=== PATIENT | female | born 1945 | race Caucasian/White ===

== ENCOUNTER 2016-10-10 15:16 | Inpatient (IN) | payer MEDICARE, OTHER ==
[2016-10-10] MEDS ORDERED: Aspirin Low Dose CHEW TAB* 81 MG PO ONE (15:38)
[2016-10-10] MEDS ORDERED: NS 0.9% 1000 ML* 1,000 ML IV SCH (15:45)
[2016-10-10 15:55] LABS: Hematocrit 40 % (35-47); Hemoglobin 13.4 g/dl (12.0-16.0); Mean Corpuscular HGB Conc 33 g/dl (31-36); Mean Corpuscular Hemoglobin 31 pg (27-31); Mean Corpuscular Volume 93 fL (80-97); Mean Platelet Volume 8 um3 (7.4-10.4); Red Blood Count 4.33 10^6/ul (4.0-5.4); Red Cell Distribution Width 15 % (10.5-15); White Blood Count 9.2 10^3/ul (3.5-10.8)
[2016-10-10 16:08] LABS: Urine Bacteria Absent (Absent); Urine Bilirubin Negative (Negative); Urine Glucose Negative (Negative); Urine Nitrite Negative (Negative)
[2016-10-10 16:11] LABS: ALT 13 U/L (7-52); AST 12 U/L (13-39); Albumin 3.6 g/dL (3.2-5.2); Alkaline Phosphatase 57 U/L (34-104); Anion Gap 5 mmol/L (2-11); BUN/Creatinine Ratio 17.4 (8-20); Blood Urea Nitrogen 28 mg/dL (6-24); C Reactive Protein < 1.00 mg/L (< 5.00); CO2 Carbon Dioxide 25 mmol/L (22-32); Calcium 9.8 mg/dL (8.6-10.3); Chloride 105 mmol/L (101-111); Creatine Kinase 50 U/L (10-223); EGFR African American 40.6 (>60); EGFR Non-African American 31.5 (>60); Globulin 2.7 g/dL (2-4); Glucose 108 mg/dL (70-100); Lipase 17 U/L (11.0-82.0); Potassium 4.6 mmol/L (3.5-5.0); Sodium 135 mmol/L (133-145); Total Protein 6.3 g/dL (6.4-8.9)
--- NOTE | 2016-10-10 16:15 | RAD ---
HISTORY: Shortness of breath, chest pain COMPARISONS: September 18, 2016 VIEWS:1: Single frontal portable view of the chest at 3:40 PM FINDINGS: LINES AND TUBES: None. CARDIOMEDIASTINAL SILHOUETTE: The cardiomediastinal silhouette is normal for portable technique. PLEURA: The costophrenic angles are sharp. No pleural abnormalities are noted. LUNG PARENCHYMA: There is hyperinflation. ABDOMEN: The upper abdomen is clear. There is no subphrenic gas. BONES AND SOFT TISSUES: No bone or soft tissue abnormalities are noted. IMPRESSION: NO ACTIVE CARDIOPULMONARY DISEASE.
[2016-10-10 16:43] LABS: TSH (Thyroid Stimulating Horm) 0.46 mcIU/mL (0.34-5.60)
[2016-10-10] MEDS ORDERED: Acetaminophen TAB* 325 MG PO PRN (17:24)
[2016-10-10] MEDS ORDERED: Albuterol/Ipratropium NEB.SOL* Albuterol 2.5 MG/Ipratropium 0.5 MG 3 ML INH PRN (17:24)
--- NOTE | 2016-10-10 18:39 | ED ---
Jose Maria Mckeon Rebecca, scribed for Omari Mcknight MD on 10/10/16 at 1536 . Shortness of Breath - HPI Summary HPI Summary: Pt is a 70 y/o F BIBA from [facility] who presents to ED c/o SOB. SOB is characterized as dyspnea at rest and has been intermittent since onset 3-4 days ago, worsening at 1300. Additionally c/o dizziness and mild, midsternal CP without radiation. CP began at 1300, when SOB worsened, and it lasted a few hours, currently resolved. Additionally notes worsening insomnia, reporting difficulties sleeping for multiple months and that she has not slept for the last 5 days. Denies fever, chills, nausea, diaphoresis and edema. PMHx COPD. - History of Current Complaint Chief Complaint: EDShortnessOfBreath Time Seen by Provider: 10/10/16 15:26 Hx Obtained From: Patient Onset/Duration: Lasting Days - 3-4 days, Still Present, Worse Since - 1300 Timing: Intermittent Episodes Lasting: Dyspnea At: Rest Aggrevating Factors: Nothing Alleviating Factors: Nothing Associated Signs & Symptoms: Chest Pain Unrelated to Cough - resolved - Allergy/Home Medications Allergies/Adverse Reactions: Allergies Allergy/AdvReac Type Severity Reaction Status Date / Time Amoxicillin [From Augmentin] Allergy GI Upset Verified 09/29/16 15:11 Clavulanic Acid Allergy GI Upset Verified 09/29/16 15:11 [From Augmentin] Niacin Allergy Unknown Verified 09/29/16 15:11 Reaction Details Sulfa Antibiotics Allergy GI Upset Verified 09/29/16 15:11 PMH/Surg Hx/FS Hx/Imm Hx Cardiovascular History: Reports: Other Cardiovascular Problems/Disorders - Mitral valve prolapse Denies: Hx Congestive Heart Failure Respiratory History: Reports: Hx Chronic Obstructive Pulmonary Disease (COPD) Musculoskeletal History: Reports: Hx Rheumatoid Arthritis Denies: Hx Osteoporosis Infectious Disease History: Denies: Traveled Outside the [place] in Last 30 Days - Family History Known Family History: Positive: Cardiac Disease, Other - CA Negative: Diabetes - Social History [facility]: [facility] Alcohol Use: None Substance Use Type: Reports: None Smoking Status (MU): Former Smoker Review of Systems Negative: Fever, Chills, Skin Diaphoresis Positive: Chest Pain - mild, midsternal CP - resolved Positive: Shortness Of Breath - dyspnea at rest Negative: Nausea Negative: Edema Neurological: Other - Dizziness All Other Systems Reviewed And Are Negative: Yes Physical Exam - Summary Physical Exam Summary: General: well-appearing, no pain distress Skin: warm, color reflects adequate perfusion, dry Head: normal Eyes: EOMI, KENNY ENT: constant movement of the tongue and mouth Neck: supple, nontender Respiratory: CTA, breath sounds present Cardiovascular: RRR Abdomen: soft, nontender Bowel: present Musculoskeletal: normal, strength/ROM intact, no pedal edema and calves are nontender Neurological: normal, sensory/motor intact, A&O x3 Psychological: affect/mood appropriate Triage Information Reviewed: Yes Vital Signs On Initial Exam: Initial Vitals Pulse Pulse Ox 79 99 10/10/16 15:26 10/10/16 15:26 Vital Signs Reviewed: Yes Diagnostics - Vital Signs Vital Signs Temp Pulse Resp BP Pulse Ox 10/10/16 15:30 79 22 137/68 97 10/10/16 15:28 97.8 F 80 16 95/76 97 10/10/16 15:27 79 95/76 99 10/10/16 15:26 79 99 - Laboratory Lab Results: Lab Results 10/10/16 10/10/16 10/10/16 Range/Units 15:48 15:48 15:48 WBC 9.2 (3.5-10.8) 10^3/ul RBC 4.33 (4.0-5.4) 10^6/ul Hgb 13.4 (12.0-16.0) g/dl Hct 40 (35-47) % MCV 93 (80-97) fL MCH 31 (27-31) pg MCHC 33 (31-36) g/dl RDW 15 (10.5-15) % Plt Count 296 (150-450) 10^3/ul MPV 8 (7.4-10.4) um3 Neut % (Auto) 74.8 (38-83) % Lymph % (Auto) 15.9 L (25-47) % [place] % (Auto) 7.5 (1-9) % Eos % (Auto) 0.5 (0-6) % Baso % (Auto) 1.3 (0-2) % Absolute Neuts (auto) 6.9 (1.5-7.7) 10^3/ul Absolute Lymphs (auto) 1.5 (1.0-4.8) 10^3/ul Absolute Monos (auto) 0.7 (0-0.8) 10^3/ul Absolute Eos (auto) 0 (0-0.6) 10^3/ul Absolute Basos (auto) 0.1 (0-0.2) 10^3/ul Absolute Nucleated RBC 0 10^3/ul Nucleated RBC % 0 INR (Anticoag Therapy) 0.92 (0.89-1.11) APTT 25.3 L (26.0-36.3) seconds D-Dimer, Quantitative < 200 (Less Than 230) ng/mL Sodium (133-145) mmol/L Potassium (3.5-5.0) mmol/L Chloride (101-111) mmol/L Carbon Dioxide (22-32) mmol/L Anion Gap (2-11) mmol/L BUN (6-24) mg/dL Creatinine (0.51-0.95) mg/dL Est GFR ( Amer) (>60) Est GFR (Non-Af Amer) (>60) BUN/Creatinine Ratio (8-20) Glucose (70-100) mg/dL Lactic Acid (0.5-2.0) mmol/L Calcium (8.6-10.3) mg/dL Magnesium (1.9-2.7) mg/dL Total Bilirubin (0.2-1.0) mg/dL AST (13-39) U/L ALT (7-52) U/L Alkaline Phosphatase (34-104) U/L Total Creatine Kinase (10-223) U/L CK-MB (CK-2) (0.6-6.3) ng/mL Troponin I (<0.04) ng/mL C-Reactive Protein (< 5.00) mg/L B-Natriuretic Peptide ( - 100) pg/mL Total Protein (6.4-8.9) g/dL Albumin (3.2-5.2) g/dL Globulin (2-4) g/dL Albumin/Globulin Ratio (1-3) Lipase (11.0-82.0) U/L TSH (0.34-5.60) mcIU/mL Urine Color Straw Urine Appearance Clear Urine pH 7.0 (5-9) Ur Specific [place] 1.008 L (1.010-1.030) Urine Protein Negative (Negative) Urine Ketones Negative (Negative) Urine Blood Negative (Negative) Urine Nitrate Negative (Negative) Urine Bilirubin Negative (Negative) Urine Urobilinogen Negative (Negative) Ur Leukocyte Esterase Trace H (Negative) Urine WBC (Auto) Absent (Absent) Urine RBC (Auto) Trace(0-2/hpf) (Absent) Ur Squamous Epith Cells Present H (Absent) Urine Bacteria Absent (Absent) Urine Glucose Negative (Negative) 10/10/16 10/10/16 10/10/16 Range/Units 15:48 15:48 15:48 WBC (3.5-10.8) 10^3/ul RBC (4.0-5.4) 10^6/ul Hgb (12.0-16.0) g/dl Hct (35-47) % MCV (80-97) fL MCH (27-31) pg MCHC (31-36) g/dl RDW (10.5-15) % Plt Count (150-450) 10^3/ul MPV (7.4-10.4) um3 Neut % (Auto) (38-83) % Lymph % (Auto) (25-47) % [place] % (Auto) (1-9) % Eos % (Auto) (0-6) % Baso % (Auto) (0-2) % Absolute Neuts (auto) (1.5-7.7) 10^3/ul Absolute Lymphs (auto) (1.0-4.8) 10^3/ul Absolute Monos (auto) (0-0.8) 10^3/ul Absolute Eos (auto) (0-0.6) 10^3/ul Absolute Basos (auto) (0-0.2) 10^3/ul Absolute Nucleated RBC 10^3/ul Nucleated RBC % INR (Anticoag Therapy) (0.89-1.11) APTT (26.0-36.3) seconds D-Dimer, Quantitative (Less Than 230) ng/mL Sodium 135 (133-145) mmol/L Potassium 4.6 (3.5-5.0) mmol/L Chloride 105 (101-111) mmol/L Carbon Dioxide 25 (22-32) mmol/L Anion Gap 5 (2-11) mmol/L BUN 28 H (6-24) mg/dL Creatinine 1.61 H (0.51-0.95) mg/dL Est GFR ( Amer) 40.6 (>60) Est GFR (Non-Af Amer) 31.5 (>60) BUN/Creatinine Ratio 17.4 (8-20) Glucose 108 H (70-100) mg/dL Lactic Acid 1.0 (0.5-2.0) mmol/L Calcium 9.8 (8.6-10.3) mg/dL Magnesium 2.0 (1.9-2.7) mg/dL Total Bilirubin 0.80 (0.2-1.0) mg/dL AST 12 L (13-39) U/L ALT 13 (7-52) U/L Alkaline Phosphatase 57 (34-104) U/L Total Creatine Kinase 50 (10-223) U/L CK-MB (CK-2) 3.0 (0.6-6.3) ng/mL Troponin I 0.00 (<0.04) ng/mL C-Reactive Protein < 1.00 (< 5.00) mg/L B-Natriuretic Peptide 28 ( - 100) pg/mL Total Protein 6.3 L (6.4-8.9) g/dL Albumin 3.6 (3.2-5.2) g/dL Globulin 2.7 (2-4) g/dL Albumin/Globulin Ratio 1.3 (1-3) Lipase 17 (11.0-82.0) U/L TSH 0.46 (0.34-5.60) mcIU/mL Urine Color Urine Appearance Urine pH (5-9) Ur Specific [place] (1.010-1.030) Urine Protein (Negative) Urine Ketones (Negative) Urine Blood (Negative) Urine Nitrate (Negative) Urine Bilirubin (Negative) Urine Urobilinogen (Negative) Ur Leukocyte Esterase (Negative) Urine WBC (Auto) (Absent) Urine RBC (Auto) (Absent) Ur Squamous Epith Cells (Absent) Urine Bacteria (Absent) Urine Glucose (Negative) Result Diagrams: 10/10/16 15:48 10/10/16 15:48 Lab Statement: Any lab studies that have been ordered have been reviewed, and results considered in the medical decision making process. - Radiology CXR Xray Interpretation: No Acute Changes - NO ACTIVE CARDIOPULMONARY DISEASE. Radiology Interpretation Completed By: Radiologist - EKG 1613 Cardiac Rate: NL - 74 bpm EKG Rhythm: Sinus Rhythm ST Segment: Normal Ectopy: None Course/Dx - Course Assessment/Plan: Pt is a 70 y/o F BIBA from [facility] who presents to ED c/o SOB. SOB is characterized as dyspnea at rest and has been intermittent since onset 3-4 days ago, worsening at 1300. Additionally c/o dizziness and mild, midsternal CP without radiation. CP began at 1300, when SOB worsened, and it lasted a few hours, currently resolved. Additionally notes worsening insomnia, reporting difficulties sleeping for multiple months and that she has not slept for the last 5 days. Denies fever, chills, nausea, diaphoresis and edema. PMHx COPD. CXR and EKG reveal no acute findings. Troponin of 0.00, D-Dimer < 200. Discussed care of pt with Dr. Beata Maldonado at 1637 who accepts pt for admission. ADMIT HOSPITALIST STABLE. - Diagnoses Provider Diagnoses: Chest pain, Dyspnea - Physician Notifications Discussed Care of Patient With: Beata Maldonado Time Discussed With Above Provider: 16:37 Instructed by Provider To: Other - Accepts pt for admission. Discharge - Discharge Plan Condition: Stable Disposition: ADMITTED TO [facility] The documentation as recorded by the Jose Maria newell Rebecca accurately reflects the service I personally performed and the decisions made by me, Omari Mcknight MD.
[2016-10-10] MEDS: NS 0.9% 1000 ML* 1,000 ML IV SCH (18:46)
[2016-10-10] MEDS ORDERED: Ipratropium 0.5MG/2.5ML NEB* 0.5 MG/2.5 ML NEB.SOLN INH PRN (21:28)
[2016-10-10] MEDS: Heparin VIAL(*) 5000 UNITS/ML VIAL (FIVE THOUSAND) SUBCUT SCH (21:57)
[2016-10-10] MEDS: oxyCODONE/Acetamin 5/325 MG* TAB PO SCH (21:57)
[2016-10-10] MEDS ORDERED: CMCS: Melatonin (NF) 3 MG TAB PO SCH ×2 (22:00)
[2016-10-10] MEDS: CMCS: Melatonin (NF) 3 MG TAB PO SCH (22:04)
[2016-10-10] MEDS ORDERED: busPIRone TAB* 10 MG PO SCH (23:45)
[2016-10-11] MEDS: Morphine INJ* 2 MG/ML 1 ML SYRINGE IV PRN (00:16)
[2016-10-11] MEDS: busPIRone TAB* 10 MG PO SCH ×3 (00:19→21:40)
[2016-10-11 05:06] LABS: BUN/Creatinine Ratio 21.3 (8-20); Calcium 8.8 mg/dL (8.6-10.3); EGFR African American 64.3 (>60); Potassium 3.9 mmol/L (3.5-5.0)
[2016-10-11] MEDS: Heparin VIAL(*) 5000 UNITS/ML VIAL (FIVE THOUSAND) SUBCUT SCH ×3 (05:57→21:42)
[2016-10-11] MEDS: NS 0.9% 1000 ML* 1,000 ML IV SCH (08:21)
[2016-10-11] MEDS: Dicyclomine CAP* 10 MG PO SCH ×2 (08:30→21:41)
[2016-10-11] MEDS: oxyCODONE/Acetamin 5/325 MG* TAB PO SCH ×3 (08:32→21:42)
[2016-10-11] MEDS: Famotidine TAB* 20 MG PO SCH (08:33)
[2016-10-11] MEDS: Donepezil TAB* 5 MG PO SCH (08:37)
[2016-10-11] MEDS: buPROPion SR TAB.SR* 200 MG PO SCH ×2 (08:38→13:50)
[2016-10-11] MEDS ORDERED: Ergocalciferol CAP* 50000 UNIT PO SCH (09:00)
[2016-10-11] MEDS ORDERED: predniSONE TAB* 5 MG PO SCH (09:00)
[2016-10-11] MEDS ORDERED: Salmeterol DISKUS (NF) INH SCH (09:00)
[2016-10-11] MEDS ORDERED: buPROPion SR TAB.SR* 200 MG PO SCH (09:00)
--- NOTE | 2016-10-11 11:30 | PN ---
Subjective Date of Service: 10/11/16 Interval History: Ms. Gold reports that her shortness of breath and midsternal chest heaviness with breathing returned overnight. She feels confident that this is similiar to past episodes of COPD exacerbation. She denies other complaint including nausea or abdominal pain. Objective Active Medications: Acetaminophen (Tylenol Tab*) 650 mg PO Q6H PRN Albuterol/Ipratropium (Duoneb (Albuterol 2.5 Mg/Ipratropium 0.5 Mg)) 1 neb INH Q4H PRN Bupropion HCl (Wellbutrin Sr Tab*) 200 mg PO 1400 [facility] Bupropion HCl (Wellbutrin Sr Tab*) 200 mg PO DAILY [facility] Buspirone HCl (Buspar Tab*) 5 mg PO BID [facility] Dicyclomine HCl (Bentyl Cap*) 10 mg PO BID [facility] Donepezil HCl (Aricept Tab*) 10 mg PO DAILY [facility] Doxycycline Hyclate (Vibramycin Cap(*)) 100 mg PO BID [facility] Duloxetine HCl (Cymbalta Cap*) 60 mg PO 2100 [facility] Ergocalciferol (Drisdol Cap*) 50,000 unit PO Mejia@0900 [facility] Famotidine (Pepcid Tab*) 10 mg PO DAILY [facility] Heparin Sodium (Porcine) (Heparin Vial(*)) 5,000 units SUBCUT Q8HR [facility] Ipratropium [place] (Atrovent 0.5 Mg Neb.Stephanie*) 0.5 mg INH BID PRN Melatonin (Melatonin (Nf)) 3 mg PO 2100 [facility] Morphine Sulfate (Morphine Inj (Syringe)*) 2 mg IV Q2H PRN Oxycodone/Acetaminophen (Percocet 5/325 Tab*) 1 tab PO TID [facility] Prednisone (Deltasone Tab*) 40 mg PO DAILY [facility] Risperidone (Risperdal) 0.25 mg PO BEDTIME [facility] Vital Signs 10/10/16 10/10/16 10/10/16 18:35 21:57 23:29 Temperature 98 F 98.5 F Pulse Rate 72 72 Respiratory 20 20 16 Rate Blood Pressure 161/64 130/50 (mmHg) O2 Sat by Pulse 100 98 Oximetry 10/10/16 10/11/16 10/11/16 23:57 00:16 01:16 Temperature Pulse Rate Respiratory 20 22 20 Rate Blood Pressure (mmHg) O2 Sat by Pulse Oximetry 10/11/16 10/11/16 10/11/16 03:08 08:30 08:32 Temperature 98.2 F 98.1 F Pulse Rate 70 75 Respiratory 16 18 18 Rate Blood Pressure 122/54 119/67 (mmHg) O2 Sat by Pulse 94 99 Oximetry 10/11/16 10/11/16 10/11/16 10:30 10:56 11:12 Temperature 98.3 F Pulse Rate 74 73 Respiratory 18 18 18 Rate Blood Pressure 128/58 (mmHg) O2 Sat by Pulse 98 99 Oximetry Oxygen Devices in Use Now: None Appearance: Female lying in bed in NAD Eyes: No Scleral Icterus Neck: Trachea Midline Respiratory: Symmetrical Chest Expansion and Respiratory Effort, - - Scant wheeze noted Cardiovascular: NL Sounds; No Murmurs; No JVD, No Edema Abdominal: NL Sounds; No Tenderness; No Distention Lymphatic: No Cervical Adenopathy Extremities: No Edema Skin: No Rash or Ulcers Neurological: Alert and Oriented x 3, NL Muscle Strength and Tone Nutrition: Taking PO's Result Diagrams: 10/10/16 15:48 10/11/16 04:24 Additional Lab and Data: Lab Results 10/10/16 10/10/16 10/10/16 Range/Units 15:48 15:48 15:48 WBC 9.2 (3.5-10.8) 10^3/ul RBC 4.33 (4.0-5.4) 10^6/ul Hgb 13.4 (12.0-16.0) g/dl Hct 40 (35-47) % MCV 93 (80-97) fL MCH 31 (27-31) pg MCHC 33 (31-36) g/dl RDW 15 (10.5-15) % Plt Count 296 (150-450) 10^3/ul MPV 8 (7.4-10.4) um3 Neut % (Auto) 74.8 (38-83) % Lymph % (Auto) 15.9 L (25-47) % [place] % (Auto) 7.5 (1-9) % Eos % (Auto) 0.5 (0-6) % Baso % (Auto) 1.3 (0-2) % Absolute Neuts (auto) 6.9 (1.5-7.7) 10^3/ul Absolute Lymphs (auto) 1.5 (1.0-4.8) 10^3/ul Absolute Monos (auto) 0.7 (0-0.8) 10^3/ul Absolute Eos (auto) 0 (0-0.6) 10^3/ul Absolute Basos (auto) 0.1 (0-0.2) 10^3/ul Absolute Nucleated RBC 0 10^3/ul Nucleated RBC % 0 INR (Anticoag Therapy) 0.92 (0.89-1.11) APTT 25.3 L (26.0-36.3) seconds D-Dimer, Quantitative < 200 (Less Than 230) ng/mL Sodium (133-145) mmol/L Potassium (3.5-5.0) mmol/L Chloride (101-111) mmol/L Carbon Dioxide (22-32) mmol/L Anion Gap (2-11) mmol/L BUN (6-24) mg/dL Creatinine (0.51-0.95) mg/dL Est GFR ( Amer) (>60) Est GFR (Non-Af Amer) (>60) BUN/Creatinine Ratio (8-20) Glucose (70-100) mg/dL Lactic Acid (0.5-2.0) mmol/L Calcium (8.6-10.3) mg/dL Magnesium (1.9-2.7) mg/dL Total Bilirubin (0.2-1.0) mg/dL AST (13-39) U/L ALT (7-52) U/L Alkaline Phosphatase (34-104) U/L Total Creatine Kinase (10-223) U/L CK-MB (CK-2) (0.6-6.3) ng/mL Troponin I (<0.04) ng/mL C-Reactive Protein (< 5.00) mg/L B-Natriuretic Peptide ( - 100) pg/mL Total Protein (6.4-8.9) g/dL Albumin (3.2-5.2) g/dL Globulin (2-4) g/dL Albumin/Globulin Ratio (1-3) Lipase (11.0-82.0) U/L TSH (0.34-5.60) mcIU/mL Urine Color Straw Urine Appearance Clear Urine pH 7.0 (5-9) Ur Specific [place] 1.008 L (1.010-1.030) Urine Protein Negative (Negative) Urine Ketones Negative (Negative) Urine Blood Negative (Negative) Urine Nitrate Negative (Negative) Urine Bilirubin Negative (Negative) Urine Urobilinogen Negative (Negative) Ur Leukocyte Esterase Trace H (Negative) Urine WBC (Auto) Absent (Absent) Urine RBC (Auto) Trace(0-2/hpf) (Absent) Ur Squamous Epith Cells Present H (Absent) Urine Bacteria Absent (Absent) Urine Glucose Negative (Negative) 10/10/16 10/10/16 10/10/16 Range/Units 15:48 15:48 15:48 WBC (3.5-10.8) 10^3/ul RBC (4.0-5.4) 10^6/ul Hgb (12.0-16.0) g/dl Hct (35-47) % MCV (80-97) fL MCH (27-31) pg MCHC (31-36) g/dl RDW (10.5-15) % Plt Count (150-450) 10^3/ul MPV (7.4-10.4) um3 Neut % (Auto) (38-83) % Lymph % (Auto) (25-47) % [place] % (Auto) (1-9) % Eos % (Auto) (0-6) % Baso % (Auto) (0-2) % Absolute Neuts (auto) (1.5-7.7) 10^3/ul Absolute Lymphs (auto) (1.0-4.8) 10^3/ul Absolute Monos (auto) (0-0.8) 10^3/ul Absolute Eos (auto) (0-0.6) 10^3/ul Absolute Basos (auto) (0-0.2) 10^3/ul Absolute Nucleated RBC 10^3/ul Nucleated RBC % INR (Anticoag Therapy) (0.89-1.11) APTT (26.0-36.3) seconds D-Dimer, Quantitative (Less Than 230) ng/mL Sodium 135 (133-145) mmol/L Potassium 4.6 (3.5-5.0) mmol/L Chloride 105 (101-111) mmol/L Carbon Dioxide 25 (22-32) mmol/L Anion Gap 5 (2-11) mmol/L BUN 28 H (6-24) mg/dL Creatinine 1.61 H (0.51-0.95) mg/dL Est GFR ( Amer) 40.6 (>60) Est GFR (Non-Af Amer) 31.5 (>60) BUN/Creatinine Ratio 17.4 (8-20) Glucose 108 H (70-100) mg/dL Lactic Acid 1.0 (0.5-2.0) mmol/L Calcium 9.8 (8.6-10.3) mg/dL Magnesium 2.0 (1.9-2.7) mg/dL Total Bilirubin 0.80 (0.2-1.0) mg/dL AST 12 L (13-39) U/L ALT 13 (7-52) U/L Alkaline Phosphatase 57 (34-104) U/L Total Creatine Kinase 50 (10-223) U/L CK-MB (CK-2) 3.0 (0.6-6.3) ng/mL Troponin I 0.00 (<0.04) ng/mL C-Reactive Protein < 1.00 (< 5.00) mg/L B-Natriuretic Peptide 28 ( - 100) pg/mL Total Protein 6.3 L (6.4-8.9) g/dL Albumin 3.6 (3.2-5.2) g/dL Globulin 2.7 (2-4) g/dL Albumin/Globulin Ratio 1.3 (1-3) Lipase 17 (11.0-82.0) U/L TSH 0.46 (0.34-5.60) mcIU/mL Urine Color Urine Appearance Urine pH (5-9) Ur Specific [place] (1.010-1.030) Urine Protein (Negative) Urine Ketones (Negative) Urine Blood (Negative) Urine Nitrate (Negative) Urine Bilirubin (Negative) Urine Urobilinogen (Negative) Ur Leukocyte Esterase (Negative) Urine WBC (Auto) (Absent) Urine RBC (Auto) (Absent) Ur Squamous Epith Cells (Absent) Urine Bacteria (Absent) Urine Glucose (Negative) Microbiology and Other Data: Microbiology 10/10/16 22:50 Nasal Screen MRSA (PCR)(ANGELIKA) - Final Nasal Mrsa Negative Assess/Plan/Problems-Billing Assessment: Ms. Gold is a 70 yo female with a PMH of rheumatoid arthritis and COPD who was admitted on 10/10/16 with SOB and chest pain now with suspected COPD exacerbation. - Patient Problems (1) COPD exacerbation Comment: - SOB returned today, now am more suspicious for mild COPD exacerbation. - Start increased prednisone and doxycycline with duonebs prn. (2) Rheumatoid arthritis Comment: - On prednisone 15mg at home daily, increased now for COPD exacerbation. (3) Dementia Comment: - Continue aricept. (4) Depression Comment: - Continue welbutrin, buspar, risperadone. - Patient had recently had cymbalta removed from her medication list at [facility], patient and family requesting that it be resumed as patient has insomnia and they feel this medication is very beneficial in this regard. - Reviewed med list with pharmacy, will resume cymbalta. (5) DVT prophylaxis (6) Full code status Status and Disposition: Switch from OBV to inpatient with need for additional night in the hospital for COPD exacerbation. Anticipate discharge to [facility] when medically stable.
[2016-10-11] MEDS: DOXYcycline CAP(*) 100 MG PO SCH ×2 (11:51→21:42)
[2016-10-11] MEDS: predniSONE TAB* 20 MG PO SCH (11:52)
[2016-10-11 13:59] LABS: Urine Bilirubin Negative (Negative); Urine Glucose 1+(50 mg/dL) (Negative); Urine Nitrite Negative (Negative)
--- NOTE | 2016-10-11 16:29 | HP ---
CC: Dr. Parada at [facility] MEDICINE HISTORY AND PHYSICAL: DATE OF ADMISSION: 10/10/16 PRIMARY CARE PHYSICIAN: Dr. Parada at [facility]. ATTENDING PHYSICIAN: Dr. Dejuan Durand * (dictation provided by Mary Recinos NP ) CHIEF COMPLAINT: Shortness of breath and chest pain. HISTORY OF PRESENT ILLNESS: Ms. Gold is a 70-year-old female with a past medical history of rheumatoid arthritis, on chronic prednisone therapy, COPD, and dementia, who presents today to the hospital with concern for chest pain and shortness of breath. Ms. Gold states that she has been feeling under the weather for about 5 days. She has noted increased postnasal drip. She has had some shortness of breath and some chest discomfort when she takes a deep breath only. She felt a little lightheaded today with these symptoms and therefore was brought to the emergency room. She denies any fever. There has been no nausea, vomiting, or abdominal pain. She thinks she has been eating well. In the emergency room, Ms. Gold had an x-ray that showed no evidence of pneumonia. Her labs were remarkable for an elevated BUN and creatinine from baseline at 21 and 1.61 respectively. Her vitals were stable. She was on 2 L nasal cannula, which was new for her. PAST MEDICAL HISTORY: 1. Rheumatoid arthritis. 2. Depression. 3. Dementia. 4. Irritable bowel syndrome. 5. COPD. 6. GERD. FAMILY HISTORY: Mother had CHF. Father had Alzheimer's disease. SOCIAL HISTORY: The patient quit smoking in 2000. She denies alcohol or drug use. She lives at [facility]. She states her son is the healthcare proxy. REVIEW OF SYSTEMS: A 14-point review of systems was completed with Ms. Gold and all those not mentioned above were negative. PHYSICAL EXAMINATION GENERAL: Ms. Gold is lying in the bed. She is in no acute distress. VITAL SIGNS: Temperature 97.8, heart rate 80, respiratory rate 18, O2 saturation 97% on room air, blood pressure 95/76. LUNGS: Clear to auscultation bilaterally with no accessory muscle use and good aeration. HEART: S1, S2. No murmur, rub, or gallop and regular. ABDOMEN: Soft, nontender, with bowel sounds positive x4. EXTREMITIES: No cyanosis or edema. NEURO: She is alert. She is oriented x3. She moves all extremities equally. There is no facial asymmetry or focal weakness. Extraocular movements are intact. SKIN: Intact. LABORATORY DATA/DIAGNOSTIC STUDIES: WBC 9.2, hemoglobin 13.4, hematocrit 40, platelet count 296. INR 0.92, D-dimer less than 200. Sodium 135, potassium 4.6 , chloride 105, serum bicarbonate 25, BUN 28, creatinine 1.61, glucose 108, lactic acid 1.0. Chest x-ray shows no active cardiopulmonary disease. ASSESSMENT AND PLAN: Ms. Gold is a 70-year-old resident of [facility], has a past medical history of chronic obstructive pulmonary disease, depression, and rheumatoid arthritis, on chronic prednisone therapy, who presents to the hospital today with chest pain and shortness of breath. Our plans are for observation in the hospital for the followin. Chest pain and shortness of breath: The patient states she is actually feeling better now. She denies discomfort or shortness of breath. I initially questioned whether or not perhaps she had a chronic obstructive pulmonary disease exacerbation, but at least at this point, her lungs are clear to auscultation bilaterally. She also has no evidence of pneumonia with a clear chest x-ray. She has normal labs. I think given the symptoms that she is describing and her overall frailty with immunosuppression on prednisone, she should be monitored in the hospital overnight. For now, she will continue with oxygen as needed and Duo nebulizers. 2. Acute kidney injury. The patient's BUN and creatinine are elevated. I think this is likely reflective of dehydration in the setting of feeling poorly for the past 5 or 6 days. Plan to hydrate and recheck in the a.m. 3. Depression. Plan to continue home medications of buspirone and BuSpar with risperidone at night. 4. Dementia. Continue Aricept. 5. History of rheumatoid arthritis. Continue prednisone at routine dose. 6. DVT prophylaxis with heparin subcu. 7. Code status is full code. TIME SPENT: Approximately 60 minutes was spent on the admission of this patient , more than half the time spent with the patient at the bedside reviewing the events leading up to this hospitalization, performing the physical examination, and reviewing the plan of care. MARYLinda RECINOS NP [id number]/[facility] #: [id number] EDUARDO
[2016-10-11] MEDS: DULoxetine DR CAP* 60 MG CAP.DR PO SCH (21:42)
[2016-10-11] MEDS: CMCS: Melatonin (NF) 3 MG TAB PO SCH (21:42)
[2016-10-12] MEDS: Heparin VIAL(*) 5000 UNITS/ML VIAL (FIVE THOUSAND) SUBCUT SCH ×3 (06:10→22:37)
[2016-10-12] MEDS: Dicyclomine CAP* 10 MG PO SCH ×2 (08:11→22:26)
[2016-10-12] MEDS: predniSONE TAB* 20 MG PO SCH (08:11)
[2016-10-12] MEDS: DOXYcycline CAP(*) 100 MG PO SCH ×2 (08:11→22:31)
[2016-10-12] MEDS: buPROPion SR TAB.SR* 200 MG PO SCH ×2 (08:13→16:46)
[2016-10-12] MEDS: oxyCODONE/Acetamin 5/325 MG* TAB PO SCH ×3 (08:13→22:25)
[2016-10-12] MEDS: Donepezil TAB* 5 MG PO SCH (08:13)
[2016-10-12] MEDS: busPIRone TAB* 10 MG PO SCH ×2 (08:15→22:31)
[2016-10-12] MEDS: Famotidine TAB* 20 MG PO SCH (08:16)
[2016-10-12] MEDS: Ondansetron INJ* 2 MG/ML VIAL IV PRN ×3 (09:27→22:37)
[2016-10-12] MEDS: Morphine INJ* 2 MG/ML 1 ML SYRINGE IV PRN ×3 (09:35→19:30)
--- NOTE | 2016-10-12 13:11 | PN ---
Subjective Date of Service: 10/12/16 Interval History: Ms. Gold complains of nausea with emesis x 1 today. She continues to report midsternal chest heaviness. She continues to report SOB. She denies other complaint. Objective Active Medications: Acetaminophen (Tylenol Tab*) 650 mg PO Q6H PRN Albuterol/Ipratropium (Duoneb (Albuterol 2.5 Mg/Ipratropium 0.5 Mg)) 1 neb INH Q4H PRN Bupropion HCl (Wellbutrin Sr Tab*) 200 mg PO 1400 [facility] Bupropion HCl (Wellbutrin Sr Tab*) 200 mg PO DAILY [facility] Buspirone HCl (Buspar Tab*) 5 mg PO BID [facility] Dicyclomine HCl (Bentyl Cap*) 10 mg PO BID [facility] Donepezil HCl (Aricept Tab*) 10 mg PO DAILY [facility] Doxycycline Hyclate (Vibramycin Cap(*)) 100 mg PO BID [facility] Duloxetine HCl (Cymbalta Cap*) 60 mg PO 2100 [facility] Ergocalciferol (Drisdol Cap*) 50,000 unit PO Mejia@0900 [facility] Famotidine (Pepcid Tab*) 10 mg PO DAILY [facility] Heparin Sodium (Porcine) (Heparin Vial(*)) 5,000 units SUBCUT Q8HR [facility] Ipratropium [place] (Atrovent 0.5 Mg Neb.Stephanie*) 0.5 mg INH BID PRN Melatonin (Melatonin (Nf)) 3 mg PO 2100 [facility] Morphine Sulfate (Morphine Inj (Syringe)*) 2 mg IV Q2H PRN Ondansetron HCl (Zofran Inj*) 4 mg IV Q6H PRN Oxycodone/Acetaminophen (Percocet 5/325 Tab*) 1 tab PO TID [facility] Prednisone (Deltasone Tab*) 40 mg PO DAILY [facility] Risperidone (Risperdal) 0.25 mg PO BEDTIME [facility] Vital Signs 10/11/16 10/11/16 10/11/16 13:50 15:37 15:50 Temperature 98.8 F Pulse Rate 75 Respiratory 18 16 18 Rate Blood Pressure 133/60 (mmHg) O2 Sat by Pulse 97 Oximetry 10/11/16 10/11/16 10/11/16 19:34 19:40 21:41 Temperature 98.3 F Pulse Rate 72 Respiratory 16 18 16 Rate Blood Pressure 112/53 (mmHg) O2 Sat by Pulse 96 Oximetry 10/11/16 10/11/16 10/11/16 21:42 23:41 23:42 Temperature Pulse Rate Respiratory 16 16 16 Rate Blood Pressure (mmHg) O2 Sat by Pulse Oximetry 10/11/16 10/11/16 10/12/16 23:49 23:50 00:02 Temperature 97.7 F 97.7 F Pulse Rate 75 82 85 Respiratory 20 16 Rate Blood Pressure 145/57 145/57 (mmHg) O2 Sat by Pulse 94 95 96 Oximetry 10/12/16 10/12/16 10/12/16 02:41 07:41 08:00 Temperature 98.0 F 98.0 F Pulse Rate 86 85 Respiratory 20 18 Rate Blood Pressure 152/57 142/67 (mmHg) O2 Sat by Pulse 95 96 Oximetry 10/12/16 10/12/16 10/12/16 08:11 08:13 09:35 Temperature Pulse Rate Respiratory 18 18 18 Rate Blood Pressure (mmHg) O2 Sat by Pulse Oximetry 10/12/16 10/12/16 10/12/16 10:11 10:13 10:35 Temperature Pulse Rate Respiratory 18 18 18 Rate Blood Pressure (mmHg) O2 Sat by Pulse Oximetry 10/12/16 11:05 Temperature 98.8 F Pulse Rate 83 Respiratory 16 Rate Blood Pressure 132/66 (mmHg) O2 Sat by Pulse 95 Oximetry Oxygen Devices in Use Now: None Appearance: Female lying in bed in NAD Eyes: No Scleral Icterus Ears/Nose/Mouth/Throat: Mucous Membranes Moist Neck: Trachea Midline Respiratory: Symmetrical Chest Expansion and Respiratory Effort, Clear to Auscultation Cardiovascular: NL Sounds; No Murmurs; No JVD, No Edema Abdominal: NL Sounds; No Tenderness; No Distention Lymphatic: No Cervical Adenopathy Extremities: No Edema Skin: No Rash or Ulcers Neurological: Alert and Oriented x 3, NL Muscle Strength and Tone Nutrition: Taking PO's Result Diagrams: 10/10/16 15:48 10/11/16 04:24 Additional Lab and Data: Lab Results 10/10/16 10/10/16 10/10/16 Range/Units 15:48 15:48 15:48 WBC 9.2 (3.5-10.8) 10^3/ul RBC 4.33 (4.0-5.4) 10^6/ul Hgb 13.4 (12.0-16.0) g/dl Hct 40 (35-47) % MCV 93 (80-97) fL MCH 31 (27-31) pg MCHC 33 (31-36) g/dl RDW 15 (10.5-15) % Plt Count 296 (150-450) 10^3/ul MPV 8 (7.4-10.4) um3 Neut % (Auto) 74.8 (38-83) % Lymph % (Auto) 15.9 L (25-47) % [place] % (Auto) 7.5 (1-9) % Eos % (Auto) 0.5 (0-6) % Baso % (Auto) 1.3 (0-2) % Absolute Neuts (auto) 6.9 (1.5-7.7) 10^3/ul Absolute Lymphs (auto) 1.5 (1.0-4.8) 10^3/ul Absolute Monos (auto) 0.7 (0-0.8) 10^3/ul Absolute Eos (auto) 0 (0-0.6) 10^3/ul Absolute Basos (auto) 0.1 (0-0.2) 10^3/ul Absolute Nucleated RBC 0 10^3/ul Nucleated RBC % 0 INR (Anticoag Therapy) 0.92 (0.89-1.11) APTT 25.3 L (26.0-36.3) seconds D-Dimer, Quantitative < 200 (Less Than 230) ng/mL Sodium (133-145) mmol/L Potassium (3.5-5.0) mmol/L Chloride (101-111) mmol/L Carbon Dioxide (22-32) mmol/L Anion Gap (2-11) mmol/L BUN (6-24) mg/dL Creatinine (0.51-0.95) mg/dL Est GFR ( Amer) (>60) Est GFR (Non-Af Amer) (>60) BUN/Creatinine Ratio (8-20) Glucose (70-100) mg/dL Lactic Acid (0.5-2.0) mmol/L Calcium (8.6-10.3) mg/dL Magnesium (1.9-2.7) mg/dL Total Bilirubin (0.2-1.0) mg/dL AST (13-39) U/L ALT (7-52) U/L Alkaline Phosphatase (34-104) U/L Total Creatine Kinase (10-223) U/L CK-MB (CK-2) (0.6-6.3) ng/mL Troponin I (<0.04) ng/mL C-Reactive Protein (< 5.00) mg/L B-Natriuretic Peptide ( - 100) pg/mL Total Protein (6.4-8.9) g/dL Albumin (3.2-5.2) g/dL Globulin (2-4) g/dL Albumin/Globulin Ratio (1-3) Lipase (11.0-82.0) U/L TSH (0.34-5.60) mcIU/mL Urine Color Straw Urine Appearance Clear Urine pH 7.0 (5-9) Ur Specific [place] 1.008 L (1.010-1.030) Urine Protein Negative (Negative) Urine Ketones Negative (Negative) Urine Blood Negative (Negative) Urine Nitrate Negative (Negative) Urine Bilirubin Negative (Negative) Urine Urobilinogen Negative (Negative) Ur Leukocyte Esterase Trace H (Negative) Urine WBC (Auto) Absent (Absent) Urine RBC (Auto) Trace(0-2/hpf) (Absent) Ur Squamous Epith Cells Present H (Absent) Urine Bacteria Absent (Absent) Urine Glucose Negative (Negative) 10/10/16 10/10/16 10/10/16 Range/Units 15:48 15:48 15:48 WBC (3.5-10.8) 10^3/ul RBC (4.0-5.4) 10^6/ul Hgb (12.0-16.0) g/dl Hct (35-47) % MCV (80-97) fL MCH (27-31) pg MCHC (31-36) g/dl RDW (10.5-15) % Plt Count (150-450) 10^3/ul MPV (7.4-10.4) um3 Neut % (Auto) (38-83) % Lymph % (Auto) (25-47) % [place] % (Auto) (1-9) % Eos % (Auto) (0-6) % Baso % (Auto) (0-2) % Absolute Neuts (auto) (1.5-7.7) 10^3/ul Absolute Lymphs (auto) (1.0-4.8) 10^3/ul Absolute Monos (auto) (0-0.8) 10^3/ul Absolute Eos (auto) (0-0.6) 10^3/ul Absolute Basos (auto) (0-0.2) 10^3/ul Absolute Nucleated RBC 10^3/ul Nucleated RBC % INR (Anticoag Therapy) (0.89-1.11) APTT (26.0-36.3) seconds D-Dimer, Quantitative (Less Than 230) ng/mL Sodium 135 (133-145) mmol/L Potassium 4.6 (3.5-5.0) mmol/L Chloride 105 (101-111) mmol/L Carbon Dioxide 25 (22-32) mmol/L Anion Gap 5 (2-11) mmol/L BUN 28 H (6-24) mg/dL Creatinine 1.61 H (0.51-0.95) mg/dL Est GFR ( Amer) 40.6 (>60) Est GFR (Non-Af Amer) 31.5 (>60) BUN/Creatinine Ratio 17.4 (8-20) Glucose 108 H (70-100) mg/dL Lactic Acid 1.0 (0.5-2.0) mmol/L Calcium 9.8 (8.6-10.3) mg/dL Magnesium 2.0 (1.9-2.7) mg/dL Total Bilirubin 0.80 (0.2-1.0) mg/dL AST 12 L (13-39) U/L ALT 13 (7-52) U/L Alkaline Phosphatase 57 (34-104) U/L Total Creatine Kinase 50 (10-223) U/L CK-MB (CK-2) 3.0 (0.6-6.3) ng/mL Troponin I 0.00 (<0.04) ng/mL C-Reactive Protein < 1.00 (< 5.00) mg/L B-Natriuretic Peptide 28 ( - 100) pg/mL Total Protein 6.3 L (6.4-8.9) g/dL Albumin 3.6 (3.2-5.2) g/dL Globulin 2.7 (2-4) g/dL Albumin/Globulin Ratio 1.3 (1-3) Lipase 17 (11.0-82.0) U/L TSH 0.46 (0.34-5.60) mcIU/mL Urine Color Urine Appearance Urine pH (5-9) Ur Specific [place] (1.010-1.030) Urine Protein (Negative) Urine Ketones (Negative) Urine Blood (Negative) Urine Nitrate (Negative) Urine Bilirubin (Negative) Urine Urobilinogen (Negative) Ur Leukocyte Esterase (Negative) Urine WBC (Auto) (Absent) Urine RBC (Auto) (Absent) Ur Squamous Epith Cells (Absent) Urine Bacteria (Absent) Urine Glucose (Negative) Microbiology and Other Data: Microbiology 10/10/16 22:50 Nasal Screen MRSA (PCR)(ANGELIKA) - Final Nasal Mrsa Negative Assess/Plan/Problems-Billing Assessment: Ms. Gold is a 70 yo female with a PMH of rheumatoid arthritis and COPD who was admitted on 10/10/16 with SOB and chest pain now with suspected COPD exacerbation. - Patient Problems (1) COPD exacerbation Comment: - Patient complains of SOB but her lungs are CTAB and she is not hypoxic on room air. - Suspect that anxiety is playing a significant role in her symptoms. - Continue prednisone taper, doxycycline with duonebs prn. (2) Rheumatoid arthritis Comment: - On prednisone 15mg at home daily, increased now for COPD exacerbation. (3) Dementia Comment: - Continue aricept. (4) Depression Comment: - Continue welbutrin, buspar, risperadone. - Patient had recently had cymbalta removed from her medication list at [facility], patient and family requesting that it be resumed as patient has insomnia and they feel this medication is very beneficial in this regard. - Reviewed med list with pharmacy, will resume cymbalta. (5) DVT prophylaxis (6) Full code status (7) Nausea & vomiting Comment: - One time episode. - Continue zofran. Status and Disposition: Inpatient with need for > 2 day LOS. Anticipate discharge to [facility] when medically stable.
[2016-10-12] MEDS: DULoxetine DR CAP* 60 MG CAP.DR PO SCH (22:26)
[2016-10-12] MEDS: CMCS: Melatonin (NF) 3 MG TAB PO SCH (22:27)
[2016-10-13] MEDS: Heparin VIAL(*) 5000 UNITS/ML VIAL (FIVE THOUSAND) SUBCUT SCH (05:45)
[2016-10-13] MEDS: Morphine INJ* 2 MG/ML 1 ML SYRINGE IV PRN (05:55)
[2016-10-13] MEDS: Ondansetron INJ* 2 MG/ML VIAL IV PRN (05:56)
[2016-10-13 08:13] VITALS: BP 114/56
--- NOTE | 2016-10-13 08:37 | PN ---
Subjective Date of Service: 10/13/16 Interval History: Ms. Gold complains of a headache and double vision today. She confirms that she has a history of infrequent migraines with which she will sometimes have double vision. She also reports some nausea today, but no emesis. She denies chest pain, SOB, and abdominal pain. Objective Active Medications: Acetaminophen (Tylenol Tab*) 650 mg PO Q6H PRN Albuterol/Ipratropium (Duoneb (Albuterol 2.5 Mg/Ipratropium 0.5 Mg)) 1 neb INH Q4H PRN Bupropion HCl (Wellbutrin Sr Tab*) 200 mg PO 1400 [facility] Bupropion HCl (Wellbutrin Sr Tab*) 200 mg PO DAILY [facility] Buspirone HCl (Buspar Tab*) 5 mg PO BID [facility] Dicyclomine HCl (Bentyl Cap*) 10 mg PO BID [facility] Donepezil HCl (Aricept Tab*) 10 mg PO DAILY [facility] Doxycycline Hyclate (Vibramycin Cap(*)) 100 mg PO BID [facility] Duloxetine HCl (Cymbalta Cap*) 60 mg PO 2100 [facility] Ergocalciferol (Drisdol Cap*) 50,000 unit PO Mejia@0900 [facility] Famotidine (Pepcid Tab*) 10 mg PO DAILY [facility] Heparin Sodium (Porcine) (Heparin Vial(*)) 5,000 units SUBCUT Q8HR [facility] Ipratropium [place] (Atrovent 0.5 Mg Neb.Stephanie*) 0.5 mg INH BID PRN Melatonin (Melatonin (Nf)) 3 mg PO 2100 [facility] Morphine Sulfate (Morphine Inj (Syringe)*) 2 mg IV Q2H PRN Ondansetron HCl (Zofran Inj*) 4 mg IV Q6H PRN Oxycodone/Acetaminophen (Percocet 5/325 Tab*) 1 tab PO TID [facility] Prednisone (Deltasone Tab*) 40 mg PO DAILY [facility] Risperidone (Risperdal) 0.25 mg PO BEDTIME [facility] Vital Signs 10/12/16 10/12/16 10/12/16 09:35 10:11 10:13 Temperature Pulse Rate Respiratory 18 18 18 Rate Blood Pressure (mmHg) O2 Sat by Pulse Oximetry 10/12/16 10/12/16 10/12/16 10:35 11:05 13:14 Temperature 98.8 F Pulse Rate 83 Respiratory 18 16 18 Rate Blood Pressure 132/66 (mmHg) O2 Sat by Pulse 95 Oximetry 10/12/16 10/12/16 10/12/16 15:14 15:32 16:46 Temperature 98.2 F Pulse Rate 74 Respiratory 16 16 16 Rate Blood Pressure 137/57 (mmHg) O2 Sat by Pulse 95 Oximetry 10/12/16 10/12/16 10/12/16 19:30 19:39 20:06 Temperature 99.1 F Pulse Rate 87 Respiratory 18 18 16 Rate Blood Pressure 135/75 (mmHg) O2 Sat by Pulse 94 Oximetry 10/12/16 10/12/16 10/12/16 22:25 22:26 23:28 Temperature Pulse Rate 81 Respiratory 20 20 16 Rate Blood Pressure (mmHg) O2 Sat by Pulse 94 Oximetry 10/12/16 10/13/16 10/13/16 23:48 05:55 07:30 Temperature 98.3 F Pulse Rate 69 68 Respiratory 16 18 16 Rate Blood Pressure 112/49 116/51 (mmHg) O2 Sat by Pulse 96 96 Oximetry 10/13/16 10/13/16 10/13/16 08:11 08:12 08:13 Temperature 97.8 F Pulse Rate 66 68 66 Respiratory 16 16 Rate Blood Pressure 120/49 116/56 114/56 (mmHg) O2 Sat by Pulse 97 97 Oximetry Oxygen Devices in Use Now: None Appearance: Female lying in bed in NAD Eyes: No Scleral Icterus Ears/Nose/Mouth/Throat: Mucous Membranes Moist Neck: Trachea Midline Respiratory: Symmetrical Chest Expansion and Respiratory Effort, Clear to Auscultation Cardiovascular: NL Sounds; No Murmurs; No JVD, No Edema Abdominal: NL Sounds; No Tenderness; No Distention Lymphatic: No Cervical Adenopathy Extremities: No Edema Skin: No Rash or Ulcers Neurological: Alert and Oriented x 3, NL Muscle Strength and Tone Nutrition: Taking PO's Result Diagrams: 10/10/16 15:48 10/11/16 04:24 Additional Lab and Data: Lab Results 10/10/16 10/10/16 10/10/16 Range/Units 15:48 15:48 15:48 WBC 9.2 (3.5-10.8) 10^3/ul RBC 4.33 (4.0-5.4) 10^6/ul Hgb 13.4 (12.0-16.0) g/dl Hct 40 (35-47) % MCV 93 (80-97) fL MCH 31 (27-31) pg MCHC 33 (31-36) g/dl RDW 15 (10.5-15) % Plt Count 296 (150-450) 10^3/ul MPV 8 (7.4-10.4) um3 Neut % (Auto) 74.8 (38-83) % Lymph % (Auto) 15.9 L (25-47) % [place] % (Auto) 7.5 (1-9) % Eos % (Auto) 0.5 (0-6) % Baso % (Auto) 1.3 (0-2) % Absolute Neuts (auto) 6.9 (1.5-7.7) 10^3/ul Absolute Lymphs (auto) 1.5 (1.0-4.8) 10^3/ul Absolute Monos (auto) 0.7 (0-0.8) 10^3/ul Absolute Eos (auto) 0 (0-0.6) 10^3/ul Absolute Basos (auto) 0.1 (0-0.2) 10^3/ul Absolute Nucleated RBC 0 10^3/ul Nucleated RBC % 0 INR (Anticoag Therapy) 0.92 (0.89-1.11) APTT 25.3 L (26.0-36.3) seconds D-Dimer, Quantitative < 200 (Less Than 230) ng/mL Sodium (133-145) mmol/L Potassium (3.5-5.0) mmol/L Chloride (101-111) mmol/L Carbon Dioxide (22-32) mmol/L Anion Gap (2-11) mmol/L BUN (6-24) mg/dL Creatinine (0.51-0.95) mg/dL Est GFR ( Amer) (>60) Est GFR (Non-Af Amer) (>60) BUN/Creatinine Ratio (8-20) Glucose (70-100) mg/dL Lactic Acid (0.5-2.0) mmol/L Calcium (8.6-10.3) mg/dL Magnesium (1.9-2.7) mg/dL Total Bilirubin (0.2-1.0) mg/dL AST (13-39) U/L ALT (7-52) U/L Alkaline Phosphatase (34-104) U/L Total Creatine Kinase (10-223) U/L CK-MB (CK-2) (0.6-6.3) ng/mL Troponin I (<0.04) ng/mL C-Reactive Protein (< 5.00) mg/L B-Natriuretic Peptide ( - 100) pg/mL Total Protein (6.4-8.9) g/dL Albumin (3.2-5.2) g/dL Globulin (2-4) g/dL Albumin/Globulin Ratio (1-3) Lipase (11.0-82.0) U/L TSH (0.34-5.60) mcIU/mL Urine Color Straw Urine Appearance Clear Urine pH 7.0 (5-9) Ur Specific [place] 1.008 L (1.010-1.030) Urine Protein Negative (Negative) Urine Ketones Negative (Negative) Urine Blood Negative (Negative) Urine Nitrate Negative (Negative) Urine Bilirubin Negative (Negative) Urine Urobilinogen Negative (Negative) Ur Leukocyte Esterase Trace H (Negative) Urine WBC (Auto) Absent (Absent) Urine RBC (Auto) Trace(0-2/hpf) (Absent) Ur Squamous Epith Cells Present H (Absent) Urine Bacteria Absent (Absent) Urine Glucose Negative (Negative) 10/10/16 10/10/16 10/10/16 Range/Units 15:48 15:48 15:48 WBC (3.5-10.8) 10^3/ul RBC (4.0-5.4) 10^6/ul Hgb (12.0-16.0) g/dl Hct (35-47) % MCV (80-97) fL MCH (27-31) pg MCHC (31-36) g/dl RDW (10.5-15) % Plt Count (150-450) 10^3/ul MPV (7.4-10.4) um3 Neut % (Auto) (38-83) % Lymph % (Auto) (25-47) % [place] % (Auto) (1-9) % Eos % (Auto) (0-6) % Baso % (Auto) (0-2) % Absolute Neuts (auto) (1.5-7.7) 10^3/ul Absolute Lymphs (auto) (1.0-4.8) 10^3/ul Absolute Monos (auto) (0-0.8) 10^3/ul Absolute Eos (auto) (0-0.6) 10^3/ul Absolute Basos (auto) (0-0.2) 10^3/ul Absolute Nucleated RBC 10^3/ul Nucleated RBC % INR (Anticoag Therapy) (0.89-1.11) APTT (26.0-36.3) seconds D-Dimer, Quantitative (Less Than 230) ng/mL Sodium 135 (133-145) mmol/L Potassium 4.6 (3.5-5.0) mmol/L Chloride 105 (101-111) mmol/L Carbon Dioxide 25 (22-32) mmol/L Anion Gap 5 (2-11) mmol/L BUN 28 H (6-24) mg/dL Creatinine 1.61 H (0.51-0.95) mg/dL Est GFR ( Amer) 40.6 (>60) Est GFR (Non-Af Amer) 31.5 (>60) BUN/Creatinine Ratio 17.4 (8-20) Glucose 108 H (70-100) mg/dL Lactic Acid 1.0 (0.5-2.0) mmol/L Calcium 9.8 (8.6-10.3) mg/dL Magnesium 2.0 (1.9-2.7) mg/dL Total Bilirubin 0.80 (0.2-1.0) mg/dL AST 12 L (13-39) U/L ALT 13 (7-52) U/L Alkaline Phosphatase 57 (34-104) U/L Total Creatine Kinase 50 (10-223) U/L CK-MB (CK-2) 3.0 (0.6-6.3) ng/mL Troponin I 0.00 (<0.04) ng/mL C-Reactive Protein < 1.00 (< 5.00) mg/L B-Natriuretic Peptide 28 ( - 100) pg/mL Total Protein 6.3 L (6.4-8.9) g/dL Albumin 3.6 (3.2-5.2) g/dL Globulin 2.7 (2-4) g/dL Albumin/Globulin Ratio 1.3 (1-3) Lipase 17 (11.0-82.0) U/L TSH 0.46 (0.34-5.60) mcIU/mL Urine Color Urine Appearance Urine pH (5-9) Ur Specific [place] (1.010-1.030) Urine Protein (Negative) Urine Ketones (Negative) Urine Blood (Negative) Urine Nitrate (Negative) Urine Bilirubin (Negative) Urine Urobilinogen (Negative) Ur Leukocyte Esterase (Negative) Urine WBC (Auto) (Absent) Urine RBC (Auto) (Absent) Ur Squamous Epith Cells (Absent) Urine Bacteria (Absent) Urine Glucose (Negative) Microbiology and Other Data: Microbiology 10/10/16 22:50 Nasal Screen MRSA (PCR)(ANGELIKA) - Final Nasal Mrsa Negative Assess/Plan/Problems-Billing Assessment: Ms. Gold is a 70 yo female with a PMH of rheumatoid arthritis and COPD who was admitted on 10/10/16 with SOB and chest pain now with suspected COPD exacerbation. - Patient Problems (1) COPD exacerbation Comment: - Patient complains of SOB but her lungs are CTAB and she is not hypoxic on room air. - Suspect that anxiety is playing a significant role in her symptoms. - Continue prednisone taper, doxycycline with duonebs prn. (2) Nausea & vomiting Comment: - Some nausea without vomiting. - Continue zofran ODT. (3) Rheumatoid arthritis Comment: - On prednisone 15mg at home daily, increased now for COPD exacerbation. (4) Dementia Comment: - Continue aricept. (5) Depression Comment: - Continue welbutrin, buspar, risperadone. - Patient had recently had cymbalta removed from her medication list at [facility], patient and family requesting that it be resumed as patient has insomnia and they feel this medication is very beneficial in this regard. - Reviewed med list with pharmacy, will resume cymbalta. (6) DVT prophylaxis (7) Full code status Status and Disposition: Discharge to [facility].
[2016-10-13] MEDS: Famotidine TAB* 20 MG PO SCH (08:46)
[2016-10-13] MEDS: busPIRone TAB* 10 MG PO SCH (08:48)
[2016-10-13] MEDS: Dicyclomine CAP* 10 MG PO SCH (08:49)
[2016-10-13] MEDS: DOXYcycline CAP(*) 100 MG PO SCH (08:50)
[2016-10-13] MEDS: predniSONE TAB* 20 MG PO SCH (08:50)
[2016-10-13] MEDS: oxyCODONE/Acetamin 5/325 MG* TAB PO SCH (08:50)
[2016-10-13] MEDS: Donepezil TAB* 5 MG PO SCH (08:50)
--- NOTE | 2016-10-13 09:21 | DS ---
CC: Providers at [facility]* DATE OF ADMISSION: 10/10/16 DATE OF DISCHARGE: 10/13/16 ATTENDING PHYSICIAN: Dr. Joaquín Staples*(dictated by Mary Recinos NP) PRIMARY DIAGNOSIS: 1. Chronic obstructive pulmonary disease exacerbation. 2. Acute kidney injury (now resolved). SECONDARY DIAGNOSES: 1. Rheumatoid arthritis. 2. Depression. 3. Dementia. 4. Irritable bowel syndrome. 5. Chronic obstructive pulmonary disease. 6. Gastroesophageal reflux disease. MEDICATIONS AT TIME OF DISCHARGE: 1. Prednisone via taper, starting at 40 mg, then resuming 15 mg daily at the end of the taper. 2. Cymbalta 60 mg po bedtime. 3. Vitamin D3 one tab po monthly. 4. Donepezil 10 mg at bedtime. 5. BuSpar 5 mg po bid. 6. Tylenol prn. 7. Bupropion 200 mg po bid. 8. Atrovent 0.5 mg per 2.5 mL nebs prn. 9. Calcium carbonate with vitamin D one tab po daily. 10. Salmeterol one puff inhaled bid. 11. Bentyl one tab po bid. 12. Imodium two tabs as needed. 13. Ranitidine 75 mg po daily. 14. Risperidone 0.25 mg po at bedtime. 15. Oxycodone with acetaminophen 5/325 one tab po tid. 16. Prednisone via taper. 17. Zofran 4 mg po q 6 hours prn. 18. Doxycycline 100 mg po bid x 5 days. HOSPITAL COURSE: Ms. Gold is a 70-year-old female who presented to the hospital on 10/10/16 with concern for shortness of breath and chest pain. Please see dictated H and P from myself for complete details. In brief, in the emergency room, patient states her symptoms had resolved. Her x-ray showed no evidence of pneumonia. Her BUN and creatinine were mildly elevated from baseline at 21 and 1.61 respectively. Patient was also requiring 2 liters nasal cannula which was new for her. Ms. Gold was observed overnight and provided with intravenous fluids. With this, her creatinine and BUN returned to normal. The following day again she again complained of persistent shortness of breath and discomfort in the center of her chest. For this reason, she was started on treatment for mild COPD exacerbation with an increase in her oral prednisone and doxycycline. With this , patient's been doing better. She's no longer requiring oxygen. At times, she will request oxygen in place; however, her O2 saturation is greater than 94 % on room air. I think, in part, her symptoms are related to anxiety. The following day, Ms. Gold was complaining of nausea. She had one bout of emesis in the morning. She was observed overnight with no further emesis. She' s had no diarrhea, no abdominal pain. She was able to tolerate oral intake. This morning, she was reporting some nausea but she has had no emesis. She's also complaining of a headache and some double vision which she states she's had a history with intermittent migraines. At this time, she's refusing any medication for that. Ms. Gold is medically stable for discharge to [facility]. She has, throughout the hospitalization, had multiple somatic complaints and requested repeatedly to remain in the hospital. I think that she is medically stable and her workup has been very benign. I think that her symptoms are related to anxiety. I'm hopeful that resuming her Cymbalta, which was done during this hospitalization at her request, may help some of this. DISPOSITION: To [facility]. DIET: Regular. ACTIVITY: As tolerated. FOLLOW-UP PLANS: Please follow up per routine with providers at [facility] regarding this acute hospitalization. MARY RECINOS NP [id number]/CPS #: [id number]
[2016-10-13] MEDS: buPROPion SR TAB.SR* 200 MG PO SCH (09:22)
== END 2016-10-13 12:00 | DRG 191 ==
LOC: ED 15:16 → MEDTELE 17:18 → OBSVTOIN 10-11 11:30 → MED 10-12 15:28
PROVIDERS: ADMIT Hospitalist; ATTEND Internal Medicine
DX: J44.1 Chronic obstructive pulmonary disease with (acute) exacerbation (principal); N17.9 Acute kidney failure, unspecified; F03.90 Unspecified dementia, unspecified severity, without behavioral disturbance, psychotic disturbance, mood disturbance, and anxiety; M06.9 Rheumatoid arthritis, unspecified; K58.9 Irritable bowel syndrome, unspecified; F32.9 Major depressive disorder, single episode, unspecified; K21.9 Gastro-esophageal reflux disease without esophagitis; F41.9 Anxiety disorder, unspecified; Z88.2 Allergy status to sulfonamides; Z82.49 Family history of ischemic heart disease and other diseases of the circulatory system; Z88.1 Allergy status to other antibiotic agents; Z87.891 Personal history of nicotine dependence; R11.2 Nausea with vomiting, unspecified; Z79.52 Long term (current) use of systemic steroids
CPT/HCPCS: 36415; 71010; 80048; 80053; 81003; 81015; 82550; 82553; 83605; 83690; 83735; 83880; 84443; 84484; 85025; 85379; 85610; 85730; 86140; 87086; 87641; 93005; 94640; A9270-GY; J1644; J2270; J2405; J7512

== ENCOUNTER 2017-06-10 22:19 | Emergency (ER) | payer MEDICARE, OTHER ==
--- OUTSIDE RECORDS SUMMARY | 2017-06-10 22:29 | XMS REPORT ---
:1945 External Reference #:[id number] Author Organization [facility] Address [address] [address] Phone [phone] Care Team Providers Name Role Phone Eugene Parada MD Care Team Information Child Care Attendant School Unavailable Beata Maldonado DO Primary Care Physician Unavailable Payers Type Date Identification Numbers Payment Provider Subscriber Medicare Primary Policy Number: [id number] Medicare Mel[place] Gold PayID: [id number] [address] [place] [address] 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 quit in 2001. 1 1/2 ppd for 38 years Recreational Drug Use Denies Drug Use Daily Caffeine Consumes on average 1 cup of 1-2 regular coffee per day Exercise Type/Frequency Exercises rarely Starting to walk this week 04/06/17 Allergies, Adverse Reactions, Alerts Date Description Reaction Status Severity Comments 09/16/2016 Sulfa Antibiotics active 09/16/2016 Amoxicillin active 09/16/2016 Niacin active 05/12/2017 Erythromycin active 05/12/2017 Vancomycin active Medications Medication Date Status Form Strength Qnty SIG Indications Ordering Provider Oxygen 05/20 Active Misc 1unit please use o2 R09.02 s at 2l/min Isabella, during MD exertion, pls provide pt with portable o2 concentrator Actemra 03/11 Active Solution 400mg/20M given as a L 60-minute Loreta, single M.D. intravenous drip infusion is 4 mg/kg every 4 weeks, Oxycodone HCL 01/26 Active Tablets 5mg 30tab 1 tab by s mouth every 4 Loreta, hours as M.D. needed Folic Acid 09/16 Active Tablets 1mg 90tab take one s capsule/table Loreta, t daily by M.D. mouth Acetaminophen Active Tablets 325mg 2 tablets by Unknown /0000 mouth every 6 hours as needed for pain/fever Aricept Active Tablets 10mg 1 by mouth Unknown /0000 every day Bentyl Active Capsules 10mg 1 tab as Unknown /0000 needed Bupropion HCL Active Tablets ER 200mg 1 by mouth Unknown ER (SR) /0000 12HR twice a day Buspirone HCL Active Tablets 5mg 1/day Unknown / Ipratropium Active Solution 0.02% 1 vial in Unknown / nebulizer 2 times a day as needed Maalox Active Suspension 400-400-4 30 Unknown Advanced /0000 0mg/5ML milliliters Maximum every 6 hours Strength as needed indigestion Oyster Shell Active Tablets 500-200 Unknown Calcium 500/D /0000 Prednisone 00 Active Tablets 5mg 360ta please take 4 bs tabs daily Loreta, for 5 days M.D. then 3 tabs daily by mouth ongoing - Per CR Med List PT Is Taking 4 Tabs qd Restasis Active Emulsion 0.05% Unknown Multidose /0000 Risperdal Active Tablets 0.25mg 1 tab by Unknown /0000 mouth in evening Vitamin D3 Active Capsules [id number] one by mouth Unknown /0000 once a month Zantac 75 Active Tablets 75mg Unknown /0000 Duloxetine HCL Active Caps DR 60mg 1 by mouth Unknown /0000 Part every day Symbicort Active Aerosol 160-4.5mc 2 puff twice Unknown /0000 g/Act a day Azithromycin 01/26 Hx Tablets 250mg 6tabs 2 tabs by mouth on day Loreta, - 1; 1 tab by Park 04/05 mouth day on days 2-5 Prolia 12/01 Hx Solution 60mg/ml 60mg 60 mg SQ M81.0 every 6 Loreta, - months M.DAlejandro 04/05 Aciphex 10/[address] 20mg 60tab Take one s capsule/table Loreta, - t daily by [place] 03/11 mouth needed for acid reflux Methotrexate 09/16 Hx Tablets 2.5mg 14tab take 3 s capsules/tabl Loreta, - ets by mouth Park 03/11 once weekly on Wednesdays Imodium A-D Hx Tablets 2mg 2 tab by Unknown /0000 mouth x1, - then 1 tab by 04/05 mouth after each loose stool as needed Namenda Hx Tablets 10mg 1 by mouth q Unknown /0000 hs Pt. states - she is not 03/11 taking Percocet Hx Tablets 5-325mg 1 tab tid Unknown /0000 during the - day for Ra 01/26 pain, and tab q hs prn Ra pain Serevent Hx Aerosol 50mcg/Dos twice a day Unknown Diskus /0000 e - 04/06 Immunizations CPT Code Status Date Vaccine Lot # [id number] Given 03/23/2013 Pneumonia Vaccine [id number] Given 12/28/2003 Pneumococcal Conjugate Vaccine 13 Valent For Intramuscular Use Vital Signs Date Vital Result Comment 05/20/2017 Height 63 inches 5'3" Weight 140.12 lb Heart Rate 84 /min BP Systolic Sitting 116 mmHg Lue Large cuff BP Diastolic Sitting 76 mmHg Lue Large cuff Respiratory Rate 16 /min O2 % BldC Oximetry 95 % BMI (Body Mass Index) 24.8 kg/m2 05/12/2017 Height 63 inches 5'3" Weight 140.00 lb per pt report Heart Rate 84 /min BP Systolic Sitting 126 mmHg BP Diastolic Sitting 68 mmHg Respiratory Rate 14 /min Body Temperature 99.0 F Pain Level 5 BMI (Body Mass Index) 24.8 kg/m2 04/06/2017 Height 63 inches 5'3" Weight 143.00 lb Heart Rate 80 /min BP Systolic Sitting 110 mmHg BP Diastolic Sitting 72 mmHg O2 % BldC Oximetry 94 % BMI (Body Mass Index) 25.3 kg/m2 03/11/2017 Height 63 inches 5'3" Weight 143.12 lb Heart Rate 88 /min BP Systolic Sitting 102 mmHg BP Diastolic Sitting 60 mmHg Respiratory Rate 14 /min Body Temperature 98.2 F Pain Level 5 BMI (Body Mass Index) 25.4 kg/m2 01/26/2017 Height 63 inches 5'3" Heart Rate 92 /min BP Systolic Sitting 103 mmHg BP Diastolic Sitting 60 mmHg Respiratory Rate 14 /min Pain Level 7 10/27/2016 Height 63 inches 5'3" Weight 131.38 lb Heart Rate 72 /min BP Systolic Sitting 104 mmHg BP Diastolic Sitting 68 mmHg Respiratory Rate 14 /min Pain Level 3 BMI (Body Mass Index) 23.3 kg/m2 09/16/2016 Height 63 inches 5'3" Weight 131.50 lb pt. states Heart Rate 80 /min BP Systolic Sitting 110 mmHg BP Diastolic Sitting 70 mmHg Respiratory Rate 14 /min Pain Level 3 BMI (Body Mass Index) 23.3 kg/m2 Results Test Date Test Result H/L Range Note Order 05/05/2017 Overnight Oximetry <pending> PFTW/Spirometry Vol Pre/Post Bronchdilat Dlco Complete <pending> Laboratory test finding 04/27/2017 Erythrocyte Sed Rate 17 mm/Hr 0-40 C Reactive Protein 2.40 mg/L < 5.00 1 CBC Auto Diff 04/27/2017 White Blood Count 12.2 10^3/uL High 3.5-10.8 Red Blood Count 4.45 10^6/uL 4.0-5.4 Hemoglobin 13.6 g/dL 12.0-16.0 Hematocrit 42 % 35-47 Mean Corpuscular Volume 95 fL 80-97 Mean Corpuscular Hemoglobin 31 pg 27-31 Mean Corpuscular HGB Conc 32 g/dL 31-36 Red Cell Distribution Width 14 % 10.5-15 Platelet Count 256 10^3/uL 150-450 Mean Platelet Volume 7 um3 Low 7.4-10.4 Abs Neutrophils 9.4 10^3/uL High 1.5-7.7 Abs Lymphocytes 1.7 10^3/uL 1.0-4.8 Abs Monocytes 0.9 10^3/uL High 0-0.8 Abs Eosinophils 0.1 10^3/uL 0-0.6 Abs Basophils 0.1 10^3/uL 0-0.2 Abs Nucleated RBC 0 10^3/uL Granulocyte % 76.9 % 38-83 Lymphocyte % 13.8 % Low 25-47 Monocyte % 7.6 % High 0-7 Eosinophil % 1.2 % 0-6 Basophil % 0.5 % 0-2 Nucleated Red Blood Cells % 0 Comp Metabolic Panel 04/27/2017 Sodium 134 mmol/L 133-145 Potassium 4.3 mmol/L 3.5-5.0 Chloride 101 mmol/L 101-111 Co2 Carbon Dioxide 27 mmol/L 22-32 Anion Gap 6 mmol/L 2-11 Glucose 98 mg/dL 70-100 Blood Urea Nitrogen 25 mg/dL High 6-24 Creatinine 1.18 mg/dL High 0.51-0.95 BUN/Creatinine Ratio 21.2 High 8-20 Calcium 9.7 mg/dL 8.6-10.3 Total Protein 6.2 g/dL Low 6.4-8.9 Albumin 3.5 g/dL 3.2-5.2 Globulin 2.7 g/dL 2-4 Albumin/Globulin Ratio 1.3 1-3 Total Bilirubin 1.10 mg/dL High 0.2-1.0 Alkaline Phosphatase 54 U/L 34-104 Alt 16 U/L 7-52 Ast 14 U/L 13-39 Egfr Non- 45.0 >60 Egfr 57.9 >60 2 Laboratory test finding 02/04/2017 C Reactive Protein 11.25 mg/L High &lt ; 5.00 3 Erythrocyte Sed Rate 30 mm/Hr 0-40 CBC Auto Diff 02/04/2017 White Blood Count 9.2 10^3/uL 3.5-10.8 Red Blood Count 4.16 10^6/uL 4.0-5.4 Hemoglobin 13.2 g/dL 12.0-16.0 Hematocrit 40 % 35-47 Mean Corpuscular Volume 95 fL 80-97 Mean Corpuscular Hemoglobin 32 pg High 27-31 Mean Corpuscular HGB Conc 33 g/dL 31-36 Red Cell Distribution Width 14 % 10.5-15 Platelet Count 314 10^3/uL 150-450 Mean Platelet Volume 8 um3 7.4-10.4 Abs Neutrophils 7.8 10^3/uL High 1.5-7.7 Abs Lymphocytes 0.8 10^3/uL Low 1.0-4.8 Abs Monocytes 0.5 10^3/uL 0-0.8 Abs Eosinophils 0.1 10^3/uL 0-0.6 Abs Basophils 0.1 10^3/uL 0-0.2 Abs Nucleated RBC 0 10^3/uL Granulocyte % 85.1 % High 38-83 Lymphocyte % 8.3 % Low 25-47 Monocyte % 5.1 % 1-9 Eosinophil % 0.6 % 0-6 Basophil % 0.9 % 0-2 Nucleated Red Blood Cells % 0 Comp Metabolic Panel 02/04/2017 Sodium 133 mmol/L 133-145 Potassium 4.5 mmol/L 3.5-5.0 Chloride 101 mmol/L 101-111 Co2 Carbon Dioxide 25 mmol/L 22-32 Anion Gap 7 mmol/L 2-11 Glucose 99 mg/dL 70-100 Blood Urea Nitrogen 21 mg/dL 6-24 Creatinine 1.18 mg/dL High 0.51-0.95 BUN/Creatinine Ratio 17.8 8-20 Calcium 10.5 mg/dL High 8.6-10.3 Total Protein 6.5 g/dL 6.4-8.9 Albumin 3.7 g/dL 3.2-5.2 Globulin 2.8 g/dL 2-4 Albumin/Globulin Ratio 1.3 1-3 Total Bilirubin 0.90 mg/dL 0.2-1.0 Alkaline Phosphatase 63 U/L 34-104 Alt 15 U/L 7-52 Ast 17 U/L 13-39 Egfr Non- 45.0 >60 Egfr 57.9 >60 4 Laboratory test finding 09/18/2016 Rheumatoid Factor 128 IU/mL <15 5 Cyclic Citrullinated Pep Igg >250.0 U 6 Nuclear AB (Alisha) By Ifa Igg <1:80 (Negative) 7 Vitamin D, 1,25 Dihydroxy 46 pg/mL 18-78 8 Hepatitis Acute Panel 09/18/2016 Hepatitis C Antibody Nonreactive Nonreactive 9 Hepatitis A AB Igm Nonreactive Nonreactive 10 Hepatitis B Core AB Igm Nonreactive Nonreactive 11 Hepatitis B Surface Ag Nonreactive Nonreactive 12 CBC Auto Diff 09/18/2016 White Blood Count 10.2 10^3/uL 3.5-10.8 Red Blood Count 4.22 10^6/uL 4.0-5.4 Hemoglobin 13.2 g/dL 12.0-16.0 Hematocrit 40 % 35-47 Mean Corpuscular Volume 95 fL 80-97 Mean Corpuscular Hemoglobin 31 pg 27-31 Mean Corpuscular HGB Conc 33 g/dL 31-36 Red Cell Distribution Width 15 % 10.5-15 Platelet Count 267 10^3/uL 150-450 Mean Platelet Volume 8 um3 7.4-10.4 Abs Neutrophils 9.0 10^3/uL High 1.5-7.7 Abs Lymphocytes 0.7 10^3/uL Low 1.0-4.8 Abs Monocytes 0.5 10^3/uL 0-0.8 Abs Eosinophils 0 10^3/uL 0-0.6 Abs Basophils 0 10^3/uL 0-0.2 Abs Nucleated RBC 0.01 10^3/uL Granulocyte % 87.7 % High 38-83 Lymphocyte % 6.7 % Low 25-47 Monocyte % 4.9 % 1-9 Eosinophil % 0.3 % 0-6 Basophil % 0.4 % 0-2 Nucleated Red Blood Cells % 0.1 Comp Metabolic Panel 09/18/2016 Sodium 136 mmol/L 133-145 Potassium 4.4 mmol/L 3.5-5.0 Chloride 104 mmol/L 101-111 Co2 Carbon Dioxide 25 mmol/L 22-32 Anion Gap 7 mmol/L 2-11 Glucose 102 mg/dL High 70-100 Blood Urea Nitrogen 24 mg/dL 6-24 Creatinine 1.06 mg/dL High 0.51-0.95 BUN/Creatinine Ratio 22.6 High 8-20 Calcium 9.9 mg/dL 8.6-10.3 Total Protein 6.4 g/dL 6.4-8.9 Albumin 3.8 g/dL 3.2-5.2 Globulin 2.6 g/dL 2-4 Albumin/Globulin Ratio 1.5 1-3 Total Bilirubin 0.90 mg/dL 0.2-1.0 Alkaline Phosphatase 67 U/L 34-104 Alt 11 U/L 7-52 Ast 11 U/L Low 13-39 Egfr Non- 51.1 >60 Egfr 65.7 >60 13 Laboratory test finding 09/18/2016 C Reactive Protein 11.60 mg/L High &lt ; 5.00 14 Erythrocyte Sed Rate 29 mm/Hr 0-40 15 1 Acute inflammation: >10.00 2 Because ethnic data is not always readily available, this report includes an eGFR for both -Americans and non- Americans. The National Kidney Disease Education Program (NKDEP) does not endorse the use of the MDRD equation for patients that are not between the ages of 18 and 70, are , have extremes of body size, muscle mass, or nutritional status, or are non- or non-. According to the National Kidney Foundation, irrespective of diagnosis, the stage of the disease is based on the level of kidney function: Stage Description GFR(mL/min/1.73 m(2)) 1 Kidney damage with normal or decreased GFR 90 2 Kidney damage with mild decrease in GFR 60-89 3 Moderate decrease in GFR 30-59 4 Severe decrease in GFR 15-29 5 Kidney failure <15 (or dialysis) 3 Acute inflammation: >10.00 4 Because ethnic data is not always readily available, this report includes an eGFR for both -Americans and non- Americans. The National Kidney Disease Education Program (NKDEP) does not endorse the use of the MDRD equation for patients that are not between the ages of 18 and 70, are , have extremes of body size, muscle mass, or nutritional status, or are non- or non-. According to the National Kidney Foundation, irrespective of diagnosis, the stage of the disease is based on the level of kidney function: Stage Description GFR(mL/min/1.73 m(2)) 1 Kidney damage with normal or decreased GFR 90 2 Kidney damage with mild decrease in GFR 60-89 3 Moderate decrease in GFR 30-59 4 Severe decrease in GFR 15-29 5 Kidney failure <15 (or dialysis) 5 Test Performed by: [facility] [address] [place] [address] 6 Interpretation: Strong Positive (>=60.0) REFERENCE VALUE <20.0 (Negative) Test Performed by: [facility] - [address] [address] 7 <1:80 (Negative) REFERENCE VALUE <1:80 (Negative) Test Performed by: [facility] - [address] [address] 8 ADDITIONAL INFORMATION This test was developed and its performance characteristics determined by [facility] in a manner consistent with CLIA requirements. This test has not been cleared or approved by the U.S. Food and Drug Administration. Test Performed by: [facility] - [address] [address] 9 Please check this week 10 Please check this week 11 Please check this week 12 Please check this week 13 Because ethnic data is not always readily available, this report includes an eGFR for both -Americans and non- Americans. The National Kidney Disease Education Program (NKDEP) does not endorse the use of the MDRD equation for patients that are not between the ages of 18 and 70, are , have extremes of body size, muscle mass, or nutritional status, or are non- or non-. According to the National Kidney Foundation, irrespective of diagnosis, the stage of the disease is based on the level of kidney function: Stage Description GFR(mL/min/1.73 m(2)) 1 Kidney damage with normal or decreased GFR 90 2 Kidney damage with mild decrease in GFR 60-89 3 Moderate decrease in GFR 30-59 4 Severe decrease in GFR 15-29 5 Kidney failure <15 (or dialysis) 14 Acute inflammation: >10.00 15 Please check this week Procedures Date CPT Code Description Status 05/05/2017 34048 Diffusing Capacity Completed 05/05/2017 73058 [facility] Measurement Heart Rate, Completed Oximetry 05/05/2017 56784 Pulmonary Function><Bronchodil Completed 09/18/2016 Bone Mineral Density Test Completed 09/09/2011 87090 Rad Exam; Hand Limited Completed 09/09/2011 53729 Rad Exam; Wrist Limited, 2 Views Completed 08/21/2011 79408 Rad Exam; Hand Limited Completed 08/21/2011 17748 Rad Exam; Wrist Limited, 2 Views Completed 08/21/2011 13908 Short Arm Splint Application Completed 08/06/2011 47342 Arthrodesis Wrist W/Iliac Or Autograft Completed 08/06/2011 71478 Arthrodesis Wrist W/Iliac Or Autograft Completed 08/06/2011 94656 Tenotomy Flexor/Extensor Forearm/Wrist Completed 06/03/2011 42833 Rad Exam; Hand Comp Completed Encounters Type Date Location Provider CPT E/M Dx Office Visit 05/12/2017 [place] [address] M05.741 11:00a Of Estefanía Nick G89.4 Z79.52 E53.9 Office Visit 04/17/2017 10:45a [facility] Beata Maldonado M.D. [address]41 M05.741 M05.742 N30.00 F41.9 Office Visit 04/06/2017 1:00p [facility] [place] [address] J44.9 Services [facility] Office Visit 03/19/2017 8:00a [facility] [place] [address] M05.741 M05.742 G89.4 Office Visit 03/16/2017 9:00a [facility] [place] [address] M05.741 M05.742 E53.9 Z79.52 Office Visit 03/11/2017 11:40a [facility] [address] M05.79 Of Estefanía Nick Z79.52 Z79.899 J44.9 W57.xxxA Office Visit 02/03/2017 8:00[place] [address] G89.29 F33.0 Office Visit 01/29/2017 8:41a [facility] [place], [address] 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 Office Visit 01/26/2017 11:00a [facility] [place], [address] M05.79 Of Estefanía Nick Z79.52 Z79.899 J01.90 M81.0 Office Visit 01/26/2017 8:45a [facility] Aleena Crooks, [employer]ODYNAMICS TEACHER [address] N64.4 M05.79 G89.29 J44.9 Z79.52 Office Visit 01/22/2017 9:00a [facility] Ama [place], AERODYNAMICS TEACHER [address] G89.29 M05.79 Office Visit 12/31/2016 8:00a [facility] [place], SID [address] K59.00 J30.9 I00 M79.7 Office Visit 12/01/2016 8:00a [facility] Ama [place], SID [address] M79.7 I00 K21.9 Office Visit 11/11/2016 9:10a [facility] [place] [address] M05.741 M05.742 Z79.52 Office Visit 10/27/2016 11:00a [facility] [place], [address] M05.79 Of Estefanía Nick Z79.899 K21.9 M81.0 R53.83 R79.82 Office Visit 10/13/2016 10:01a [facility],zachary Recinos, [place].P. [address]76 R06.02 Hospitalists R07.1 J44.9 M06.9 Office Visit 10/12/2016 10:01a [facility],zachary Recinos N.P. [address]11 R06.02 Hospitalists R07.1 J44.9 M06.9 Office Visit 10/11/2016 10:00a [facility],zacahry Recinos, N.P. [address]372 R06.02 Hospitalists R07.1 J44.9 M06.9 Office Visit 10/10/2016 9:59a [facility],zachary Recinos N.P. 39769 R06.02 Hospitalists R07.1 J44.9 M06.9 Office Visit 09/16/2016 4:00p [facility] [place], [address] M05.79 Of [facility] M19.90 Z79.899 M85.89 M54.5 M54.2 M54.6 E55.9 Office Visit 07/27/2011 10:30a [facility] Kimmy Meneses, [address] 714.0 Of Tyrone Nick 715.93 Office Visit 06/03/2011 11:15a [facility] Kimmy Meneses, [address] 714.0 Of [place] Nick Plan of Care Future Appointment(s):07/07/2017 10:45 am - Adelina Mason MD at [facility]08/12/2017 1:00 pm - Ronaldo Kan M.D. at [facility]05/20/2017 - Adelina Mason MDJ44.9 Chronic obstructive pulmonary disease, unspecifiedFollow up:6 ozsmcS01.02 HypoxemiaNew Medication:XvsbafQ97.83 SnoringNew Orders:Sleep Study
--- OUTSIDE RECORDS SUMMARY | 2017-06-10 22:30 | XMS REPORT ---
:1945 External Reference #:[id number] Author Organization [facility] Address [address] [address] Phone [phone] Care Team Providers Name Role Phone Eugene Parada MD Care Team Information Shingler Unavailable Payers Type Date Identification Numbers Payment Provider Subscriber Medicare Primary Policy Number: [id number] Medicare Melida Gold PayID: [id number] [address] [place] [address] [facility] Expires: 2016 Policy Number: [id number] Medicaid Melida Gold Group Name: 1 1 [address] PayID: [id number] [place] [address] Commercial Policy Number: [id number] Nigel Gold PayID: [id number] [address] [place] [address] Problems Date Description Provider Status Onset: Rheumatoid arthritis Active Onset: Chronic obstructive lung disease Active Onset: Disturbance in sleep behavior Active Family History Date Family Member(s) Problem(s) Comments General Rheumatoid Arthritis General Arthritis Social History Type Date Description Comments Lives With Roommate Lives With No pets 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 intravenous drip infusion is 4 mg/kg every 4 weeks, Oxycodone HCL 01/26 Active Tablets 5mg 30tab 1 tab by s mouth every Loreta, 4 hours as M.D. needed Folic Acid 09/16 Active Tablets 1mg 90tab take one s capsule/tabl Loreta, et daily by M.D. mouth Acetaminophen Active Tablets [...] Buspirone HCL Active Tablets 5mg 1/day Unknown /0000 Ipratropium Active Solution 0.02% 1 vial in Unknown nebulizer 2 times a day as needed Maalox Advanced Active Suspension 400-400-4 30 Unknown Maximum /0000 0mg/5ML milliliters Strength every 6 hours as needed indigestion Oyster Shell Active Tablets 500-200 Unknown Calcium 500/D /0000 Prednisone Active Tablets 5mg 360ta please take bs 4 tabs daily Loreta, for 5 days M.D. then 3 tabs daily by mouth ongoing - Per CR Med List PT Is Taking 4 Tabs qd Restasis Active Emulsion 0.05% Unknown Multidose /0000 Risperdal Active Tablets 0.25mg 1 tab by Unknown /0000 mouth in evening Vitamin D3 Active Capsules 60636Cbte one by mouth Unknown /0000 once a month Zantac 75 00 Active Tablets 75mg Unknown /0000 Duloxetine HCL Active Caps DR 60mg 1 by mouth Unknown /0000 Part every day Symbicort Active Aerosol 80-4.5mcg 2 puff twice Unknown /0000 /Act a day Azithromycin 01/26 Hx Tablets 250mg 6tabs 2 tabs by mouth on day , - 1; 1 tab by Park 04/05 mouth every day on days 2-5 Prolia 12/01 Hx Solution 60mg/ml 60mg 60 mg SQ M81.0 every 6 Loreta, - months Park 04/05 Aciphex 10/[address] 20mg 60tab Take one s capsule/tabl Loreta, - et daily by Park 03/11 mouth as needed for acid reflux Methotrexate 09/16 Hx Tablets 2.5mg 14tab take 3 s capsules/tab Loreta, - lets by Park 03/11 mouth once weekly on Wednesdays Imodium A-D Hx Tablets 2mg 2 tab by Unknown /0000 mouth x1, - then 1 tab 04/05 by mouth after each loose stool as needed Namenda Hx Tablets 10mg 1 by mouth q Unknown /0000 hs Pt. - states she 03/11 is not /2017 taking Percocet Hx Tablets 5-325mg 1 tab tid Unknown /0000 during the - day for Ra 01/26 pain, and tab q hs prn Ra pain Serevent Diskus Hx Aerosol 50mcg/Dos twice a day Unknown /0000 e - 04/06 Immunizations CPT Code Status Date Vaccine Lot # [id number] Given 03/23/2013 Pneumonia Vaccine 41949 Given 12/28/2003 Pneumococcal Conjugate Vaccine 13 Valent For Intramuscular Use Vital Signs Date Vital Result Comment 05/12/2017 Height 63 inches 5'3" Weight 140.00 [...] Test Date Test Result H/L Range Note Laboratory test finding 05/12/2017 CRP C-Reactive <pending> Protein Esr Sedimentation Rate <pending> CBC W/Auto Diff 05/12/2017 White Blood Count <pending> RBC Red Blood Count <pending> Hemoglobin <pending> Hematocrit <pending> MCV (Corpuscular Volume) <pending> MCH (Corpuscular Hemoglobin) <pending> MCHC (Corpuscular Hemog Conc) <pending> RDW <pending> Platelet Count <pending> MPV <pending> Neutrophils <pending> Bands <pending> Lymphocytes <pending> Monocytes <pending> Eosinophils <pending> Basophils <pending> Absolute Basophil <pending> Absolute Eosinophil <pending> Absolute Lymphocyte <pending> Absolute Monocytes <pending> Absolute Neutrophils <pending> CMP Panel 05/12/2017 Albumin <pending> Alt - SGPT <pending> Calcium <pending> Carbon Dioxide <pending> Chloride <pending> Creatinine <pending> Glucose Serum <pending> Alkaline Phosphatase <pending> Potassium <pending> Total Protein <pending> Sodium <pending> Ast - Sgot <pending> BUN - Urea Nitrogen <pending> Order 05/05/2017 Overnight Oximetry <pending> PFTW/Spirometry Vol [...] Egfr 57.9 >60 2 Laboratory test finding 04/27/2017 Vitamin D, 1,25 <pending> Dihydroxy Comp Metabolic Panel 02/04/2017 Sodium 133 mmol/L [...] Egfr Non- 45.0 >60 Egfr 57.9 >60 3 CBC Auto Diff 02/04/2017 White Blood Count [...] 0-2 Nucleated Red Blood Cells % 0 Laboratory test finding 02/04/2017 C Reactive Protein 11.25 mg/L High &lt ; 5.00 4 Erythrocyte Sed Rate 30 mm/Hr 0-40 Laboratory test finding 09/18/2016 C Reactive Protein 11.60 mg/L High &lt ; 5.00 5 Erythrocyte Sed Rate 29 mm/Hr 0-40 6 Comp Metabolic Panel 09/18/2016 Sodium 136 mmol/L [...] Egfr Non- 51.1 >60 Egfr 65.7 >60 7 CBC Auto Diff 09/18/2016 White Blood Count [...] 0-2 Nucleated Red Blood Cells % 0.1 Hepatitis Acute Panel 09/18/2016 Hepatitis C Antibody Nonreactive Nonreactive 8 Hepatitis A AB Igm Nonreactive Nonreactive 9 Hepatitis B Core AB Igm Nonreactive Nonreactive 10 Hepatitis B Surface Ag Nonreactive Nonreactive 11 Laboratory test finding 09/18/2016 Rheumatoid Factor 128 IU/mL <15 12 Cyclic Citrullinated Pep Igg >250.0 U 13 Nuclear AB (Alisha) By Ifa Igg <1:80 (Negative) 14 Vitamin D, 1,25 Dihydroxy 46 pg/mL 18-78 15 1 Acute inflammation: >10.00 2 Because [...] 5 Kidney failure <15 (or dialysis) 3 Because ethnic data is not always readily [...] 15-29 5 Kidney failure <15 (or dialysis) 4 Acute inflammation: >10.00 5 Acute inflammation: >10.00 6 Please check this week 7 Because ethnic data is not always readily [...] 15-29 5 Kidney failure <15 (or dialysis) 8 Please check this week 9 Please check this week 10 Please check this week 11 Please check this week 12 Test Performed by: [facility] [address] [place] [address] 13 Interpretation: Strong Positive (>=60.0) REFERENCE VALUE <20.0 (Negative) Test Performed by: [facility] - [address] [address] 14 <1:80 (Negative) REFERENCE VALUE <1:80 (Negative) Test Performed by: [facility] - [address] [address] 15 ADDITIONAL INFORMATION This test was developed and its performance characteristics determined by [facility] in a manner consistent with CLIA requirements. This test has not been cleared or approved by the U.S. Food and Drug Administration. Test Performed by: [facility] - [address] [address] Procedures Date CPT Code Description Status 05/05/2017 37275 Diffusing Capacity Completed 05/05/2017 09728 [facility] Measurement Heart Rate, Completed Oximetry 05/05/2017 58174 Pulmonary Function><Bronchodil Completed 09/18/2016 Bone Mineral Density Test Completed 09/09/2011 31739 Rad Exam; Hand Limited Completed 09/09/2011 46678 Rad Exam; Wrist Limited, 2 Views Completed 08/21/2011 66239 Rad Exam; Hand Limited Completed 08/21/2011 45663 Rad Exam; Wrist Limited, 2 Views Completed 08/21/2011 93017 Short Arm Splint Application Completed 08/06/2011 88006 Arthrodesis Wrist W/Iliac Or Autograft Completed 08/06/2011 69884 Arthrodesis Wrist W/Iliac Or Autograft Completed 08/06/2011 51313 Tenotomy Flexor/Extensor Forearm/Wrist Completed 06/03/2011 09894 Rad Exam; Hand Comp Completed Encounters Type Date Location Provider CPT E/M Dx Office Visit 04/06/2017 [facility] [address] J44.9 1:00p [facility] Office Visit 03/19/2017 [place] [address] M05.741 8:00a M05.742 G89.4 Office Visit 03/16/2017 9:00[place] [address] M05.741 M05.742 E53.9 Z79.52 Office Visit 03/11/2017 11:40a [facility] [address] M05.79 Of Estefanía Nick Z79.52 Z79.899 J44.9 W57.xxxA Office Visit 02/03/2017 8:00[place] [address] G89.29 F33.0 Office Visit 01/29/2017 8:41[place] [address] M79.675 Office Visit 01/26/2017 8:45[place] [address] N64.4 M05.79 G89.29 J44.9 Z79.52 Office Visit 01/26/2017 11:00a [facility] [address] M05.79 Of Estefanía Nick Z79.52 Z79.899 J01.90 M81.0 Office Visit 01/22/2017 9:00[place] [address] G89.29 M05.79 Office Visit 12/31/2016 8:00[place] [address] K59.00 J30.9 I00 M79.7 Office Visit 12/01/2016 8:00[place] [address] M79.7 I00 K21.9 Office Visit 11/11/2016 9:10[place] [address] M05.741 M05.742 Z79.52 Office Visit 10/27/2016 11:00a [facility] [place], [address] M05.79 Of Estefanía Nick Z79.899 K21.9 M81.0 R53.83 R79.82 Office Visit 10/13/2016 10:01a [facility], Mary [place], N.P. [address] R06.02 Hospitalists R07.1 J44.9 M06.9 Office Visit 10/12/2016 10:01a [facility] [place]. [address] R06.02 Hospitalists R07.1 J44.9 M06.9 Office Visit 10/11/2016 10:00a [facility], Mary Recinos, N.P. [address] R06.02 Hospitalists R07.1 J44.9 M06.9 Office Visit 10/10/2016 9:59a [facility], Mary Recinos, N.P. [address] R06.02 Hospitalists R07.1 J44.9 M06.9 Office Visit 09/16/2016 4:00p [facility] [place], [address] M05.79 Of Estefanía Nick M19.90 Z79.899 M85.89 M54.5 M54.2 M54.6 E55.9 Office Visit 07/27/2011 10:30a [facility] Kimmy Meneses, [address] 714.0 Of Tyrone Nick 715.93 Office Visit 06/03/2011 11:15a [facility] Kimmy Meneses, [address] 714.0 Of Tyrone Nick Plan of Care Future Appointment(s):08/12/2017 1:00 pm - Ronaldo Kan M.D. 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
[2017-06-10] MEDS ORDERED: NS 0.9% 1000 ML* 1,000 ML IV ONE (23:05)
[2017-06-10] MEDS ORDERED: Ondansetron INJ* 2 MG/ML VIAL IV ONE (23:06)
[2017-06-10] MEDS ORDERED: Albuterol/Ipratropium NEB.SOL* Albuterol 2.5 MG/Ipratropium 0.5 MG 3 ML INH ONE (23:10)
[2017-06-10] MEDS ORDERED: Albuterol 2.5 MG/3 ML NEB.SOL* (0.083%) INH ONE (23:10)
[2017-06-10 23:46] LABS: ABS Basophils 0 10^3/ul (0-0.2); ABS Eosinophils 0 10^3/ul (0-0.6); ABS Lymphocytes 0.4 10^3/ul (1.0-4.8); ABS Monocytes 0.4 10^3/ul (0-0.8); ABS Neutrophils 9.9 10^3/ul (1.5-7.7); ABS Nucleated RBC 0 10^3/ul; Eosinophil % 0 % (0-6); Hematocrit 41 % (35-47); Hemoglobin 13.7 g/dl (12.0-16.0); Lymphocyte % 3.3 % (25-47); Mean Corpuscular HGB Conc 34 g/dl (31-36); Mean Corpuscular Hemoglobin 31 pg (27-31); Mean Corpuscular Volume 93 fL (80-97); Mean Platelet Volume 7.8 um3 (7.4-10.4); Nucleated Red Blood Cells % 0; Platelet Count 255 10^3/ul (150-450); Red Blood Count 4.37 10^6/ul (4.0-5.4); Red Cell Distribution Width 14 % (10.5-15); White Blood Count 10.7 10^3/ul (3.5-10.8)
[2017-06-10 23:53] LABS: Urine Appearance Cloudy; Urine Blood Negative (Negative); Urine Color Yellow; Urine Ketones Trace (Negative); Urine Protein Negative (Negative); Urine Specific Gravity 1.014 (1.010-1.030); Urine Urobilinogen Negative (Negative)
[2017-06-10 23:55] LABS: INR 0.98 (0.77-1.02)
[2017-06-11 00:03] LABS: EGFR Non-African American 48.8 (>60)
[2017-06-11] MEDS ORDERED: Iodixanol* (CONTRAST) 320 MG/ML 100 ML SDV IV ONE (00:06)
[2017-06-11] MEDS ORDERED: LORazepam INJ* 2 MG/ML 1 ML VIAL ONE (00:18)
[2017-06-11] MEDS ORDERED: LORazepam INJ* 2 MG/ML 1 ML VIAL IV PUSH ONE (00:23)
--- NOTE | 2017-06-11 03:35 | ED ---
Jose Maria Mckeon Rebecca, scribed for Angel Rose MD on 06/10/17 at 2241 . Complex/Multi-Sys Presentation - HPI Summary HPI Summary: Pt is a 71 y/o F BIBA who presents to ED c/o nausea and SOB. Additionally c/o mild diarrhea. Denies abdominal pain. Reports a recent illness that she feels she she has not fully overcome. PMHx COPD - uses O2 at home. - History Of Current Complaint Chief Complaint: EDGeneral Time Seen by Provider: 06/10/17 22:38 Hx Obtained From: Patient Onset/Duration: Still Present Severity Currently: None Location: Negative Associated Signs And Symptoms: Positive: SOB, Nausea, Diarrhea - Allergies/Home Medications Allergies/Adverse Reactions: Allergies Allergy/AdvReac Type Severity Reaction Status Date / Time amoxicillin Allergy GI Upset Verified 04/27/17 14:13 clavulanic acid Allergy GI Upset Verified 04/27/17 14:14 [From Augmentin] niacin Allergy Unknown Verified 04/27/17 14:14 Reaction Details Sulfa (Sulfonamide Allergy GI Upset Verified 04/27/17 14:13 Antibiotics) Home Medications: Home Medications Albuterol/Ipratropium NEB.RAY* [Duoneb (Albuterol 2.5 MG/Ipratropium 0.5 MG)] 1 neb INH Q6H 06/10/17 [History Confirmed 06/10/17] Atorvastatin* [Lipitor*] 10 mg PO QPM 06/10/17 [History Confirmed 06/10/17] Budesonide/Formote 160/4.5(NF) [Symbicort 160/4.5 (NF)] 2 puff INH BID 06/10/17 [History Confirmed 06/10/17] Calcium Carbonate/Vitamin D3 [Oyster Shell Calcium Tablet] 1 each PO Q48H [History Confirmed 06/10/17] Denosumab(NF) [Prolia(NF)] 60 mg SC Q6M 06/10/17 [History Confirmed 06/10/17] Dextran 70/Hypromellose/Pf [Artificial Tears Drops] 1 each BOTH EYES Q4H PRN [History Confirmed 06/10/17] Docusate CAP* [Colace Cap*] 100 mg PO BID PRN 06/10/17 [History Confirmed ] Fluticasone NASAL SPRAY 50MCG* [Flonase NASAL SPRAY 50MCG*] 1 spray BOTH NARES DAILY 06/10/17 [History Confirmed 06/10/17] LORazepam TAB(*) [Ativan 0.5 MG TAB (*)] 0.5 mg PO Q8H PRN 06/10/17 [History Confirmed 06/10/17] Levofloxacin TAB* [Levaquin TAB*] 500 mg PO DAILY 06/10/17 [History Confirmed ] Mag Hydrox/Aluminum Hyd/Simeth [Maalox Maximum Strength Susp] 30 ml PO Q4H PRN 06/10/17 [History Confirmed 06/10/17] [place]-3 Fatty Acids (Nf) [Fish Oil (NF)] 1,000 mg PO DAILY 06/10/17 [History Confirmed 06/10/17] Propylene Glycol/Peg 400/Pf [Systane 0.3-0.4% Eye Drops] 1 each BOTH EYES BID [History Confirmed 06/10/17] Ranitidine TAB (NF) [Zantac TAB (NF)] 75 mg PO BID 06/10/17 [History Confirmed 06/10/17] Umeclidin 62.5 MDI(NF) [Incruse ELLIPTA MDI (NF)] 62.5 mcg IN QAM 06/10/17 [ History Confirmed 06/10/17] busPIRone TAB* [Buspar TAB*] 5 mg PO TID 06/10/17 [History Confirmed 06/10/17] oxyCODONE TAB* [Roxycodone TAB 5 mg*] 5 mg PO Q6H PRN 06/10/17 [History Confirmed 06/10/17] predniSONE TAB* [Deltasone TAB*] 20 mg PO DAILY 06/10/17 [History Confirmed ] PMH/Surg Hx/FS Hx/Imm Hx Cardiovascular History: Reports: Other Cardiovascular Problems/Disorders - Mitral valve prolapse Denies: Hx Congestive Heart Failure Respiratory History: Reports: Hx Chronic Obstructive Pulmonary Disease (COPD) GI History: Reports: Hx Gastroesophageal Reflux Disease, Hx Irritable Bowel Musculoskeletal History: Reports: Hx Arthritis, Hx Rheumatoid Arthritis, Hx Orthopedic Injury - hands fx repairs Denies: Hx Osteoporosis Sensory History: Reports: Hx Contacts or Glasses, Hx Hearing Problem - hard hearing Denies: Hx Hearing Aid Opthamlomology History: Reports: Hx Contacts or Glasses Neurological History: Reports: Hx Dementia Psychiatric History: Reports: Hx Anxiety, Hx Depression - Surgical History Surgery Procedure, Year, and Place: hysterectomy, tonsillectomy, knee replacement, bilat hand fx repairs. Infectious Disease History: No Infectious Disease History: Denies: Traveled Outside the [place] in Last 30 Days - Family History Known Family History: Positive: Cardiac Disease, Other - [place] Negative: Diabetes - Social History Alcohol Use: None Substance Use Type: Reports: None Smoking Status (MU): Former Smoker Review of Systems Positive: Shortness Of Breath Positive: Diarrhea, Nausea. Negative: Abdominal Pain All Other Systems Reviewed And Are Negative: Yes Physical Exam - Summary Physical Exam Summary: VITAL SIGNS: Reviewed. GENERAL: ~Patient is a well-developed and nourished female who is lying comfortable in the stretcher. Patient is not in any acute respiratory distress. HEAD AND FACE: No signs of trauma. No ecchymosis, hematomas or skull depressions. No sinus tenderness. EYES: PERRLA, EOMI x 2, No injected conjunctiva, no nystagmus. EARS: Hearing grossly intact. Ear canals and tympanic membranes are within normal limits. MOUTH: Oropharynx within normal limits. NECK: Supple, trachea is midline, no adenopathy, no JVD, no carotid bruit, no c- spine tenderness, neck with full ROM. CHEST: Symmetric, no tenderness at palpation LUNGS: Bilateral expiratory wheezes. No crackles. CVS: Regular rate and rhythm, S1 and S2 present, no murmurs or gallops appreciated. ABDOMEN: LLQ tenderness, abdominal distension. No rebound no guarding, and no masses palpated. Bowel sounds are hyperactive. EXTREMITIES: No edema, no cyanosis or clubbing. Bilateral wrist and finger deformities consistent with RA. NEURO: Alert and oriented x 3. No acute neurological deficits. Speech is normal and follows commands. SKIN: Dry and warm Triage Information Reviewed: Yes Vital Signs On Initial Exam: Initial Vitals Temp Pulse Resp BP Pulse Ox 98.3 F 88 16 145/70 96 06/10/17 22:26 06/10/17 22:26 06/10/17 22:26 06/10/17 22:26 06/10/17 22:26 Vital Signs Reviewed: Yes - Angela Coma Scale Glascow Coma Scale Comments: 15 Diagnostics - Vital Signs Vital Signs Temp Pulse Resp BP Pulse Ox 06/10/17 22:26 98.3 F 88 16 145/70 96 - Laboratory Result Diagrams: 06/10/17 23:05 06/10/17 23:05 Lab Statement: Any lab studies that have been ordered have been reviewed, and results considered in the medical decision making process. - Radiology CXR Xray Interpretation: No Acute Changes - No acute process. Pending official report. Radiology Interpretation Completed By: ED Physician - CT CT Abd/Pel CT Interpretation Completed By: Radiologist - Atelectasis, emphysematous changes , and fibrotic changes in lung bases. No pleural effusions. Small hiatal hernia. Large cavernous hemangioma at the dome of the liver. Gallbbladder, pancreas, adrenal glands, and spleen are unremarkable. Proximal duodenal diverticulum. Small bilateral renal cysts. No renal or urinary calculi. No AAA. Hysterectomy. Moderate stool in the colon. No evidence for diverticulitis, appendicitis, small bowel obstruction, free fluid, or free air. ED physician reviewed this radiology report. Pending official report . CT Brain CT Interpretation Completed By: Radiologist - There is cerebral atrophy. Chronic microvascular ischemic changes are noted. No acute intracranial hemorrhage or acute infartcion. The visualized aspect of the paranasal sinuses and mastoid air cells are remarkable for prior ethmoid bullectomies, antrostomies, and mild mucosal thickening in the maxillary sinuses. No acute fracture. ED physician reviewed this radiology report. Pending official report. Re-Evaluation - Re-Evaluation First Eval Re-Evaluation Time: 01:50 Comment: The pt's daughter is now in the room and the daughter is bringing up a new complaint that her mother was so confused earlier, which is very different from her baseline. Pt is happy and laughing in the room. Second Eval Re-Evaluation Time: 03:10 Comment: Discussed brain CT results with daughter. Complex Multi-Symp Course/Dx Assessment/Plan: Pt is a 71 y/o F BIBA who presents to ED c/o nausea, SOB and mild diarrhea. Denies abdominal pain. Reports a recent illness that she feels she she has not fully overcome. PMHx COPD - uses O2 at home. Upon reevaluation , the pt's daughter is now in the room and the daughter is bringing up a new complaint that her mother was so confused earlier, which is very different from her baseline. CT Abd/Pel results above. CT Brain reveals no acute findings. In the ED course, pt was given ventolin, duoneb, ativan and zofran. Pt will be D/C to home with Dx of constipation. Allergies noted. - Diagnoses Provider Diagnoses: Constipation Discharge - Sign-Out/Discharge Documenting (check all that apply): Discharge - Discharge - Discharge Plan Condition: Stable Disposition: HOME Patient Education Materials: Constipation (ED) Referrals: [facility] [place] [facility] [Outside] - 3 Days Additional Instructions: RETURN TO EMERGENCY DEPARTMENT FOR ANY NEW OR WORSENING SYMPTOMS The documentation as recorded by the Jose Maria newell Rebecca accurately reflects the service I personally performed and the decisions made by me, Angel Rose MD.
[2017-06-11 04:31] VITALS: BP 167/67
--- NOTE | 2017-06-11 07:51 | RAD ---
Indication: Shortness of breath. Single frontal view of the chest performed at 2310 hours was reviewed. Comparison is made with previous exam dated October 10, 2016. No mediastinal shift is noted. Heart is normal in size. Nodules are noted in the left mid and lower lung field which were not present previously and CT of the chest is suggested for further evaluation. No pleural fluid is identified. IMPRESSION: Nodules in the left mid and lower lung griffith. CT of the chest is suggested for further evaluation.
--- NOTE | 2017-06-11 08:04 | RAD ---
CLINICAL HISTORY: General illness, nausea COMPARISON: None TECHNIQUE: Multiple contiguous axial CT scans were obtained of the abdomen and pelvis after the administration of intravenous contrast. Coronal and sagittal multiplanar reformations are submitted for review. Oral contrast was not administered. Delayed images were obtained through the abdomen and pelvis. FINDINGS: LUNG BASES: There is bibasilar emphysematous change. LIVER: There is low-attenuation lesion of the dome of the right lobe of liver with peripheral puddling. The imaging characteristics are most consistent with a giant hemangioma measuring approximately 8.6 cm in maximum dimension. BILE DUCTS: There is no intrahepatic or extrahepatic biliary dilatation. GALLBLADDER: The gallbladder is normal, without pericholecystic inflammatory change. PANCREAS: The pancreas is normal, without mass or ductal dilatation. SPLEEN: Normal in size and appearance. UPPER GI TRACT: Evaluation of the gastrointestinal tract is limited by incomplete gastric distention. There is a 1.3 cm diverticulum of the second stage of the duodenum. SMALL BOWEL AND MESENTERY: The small bowel is normal in contour, course, and caliber. There is no obstruction or dilatation. COLON: There are scattered diverticula of the sigmoid colon. There is no pericolonic inflammatory change. ADRENALS: Normal bilaterally. KIDNEYS: Small renal cysts are noted. There is no appreciable hydronephrosis or nephrolithiasis. BLADDER: The bladder is smooth in contour. PELVIC ORGANS: The pelvic organs are not visualized. AORTA: There is calcific atherosclerotic disease of the abdominal aorta and its branches, without aneurysmal dilatation IVC: Unremarkable LYMPH NODES: There is no lymphadenopathy by size criteria. ABDOMINAL WALL: There is no evidence for abdominal wall hernia. BONES AND SOFT TISSUES: There is a scoliotic curvature of the spine. Degenerative changes are noted. OTHER: None IMPRESSION: 1. GIANT HEMANGIOMA OF THE RIGHT LOBE OF THE LIVER. 2. SCATTERED DIVERTICULA OF THE DISTAL COLON. 3. ATHEROSCLEROSIS. 4. DUODENAL DIVERTICULUM.
--- NOTE | 2017-06-11 08:15 | RAD ---
Indication: Confusion. CT of the brain was performed without IV contrast. Ventricular structures are midline. No midline shift is noted. Central and cortical atrophy is noted. There is no evidence of intracranial mass or hemorrhage. No other high or low density lesions are identified. Mastoid air cells are unremarkable. Mucosal thickening noted in the maxillary sinuses bilaterally. Patient is status post medial antrectomies. IMPRESSION: No intracranial mass or hemorrhage is noted. Chronic sinusitis involving the maxillary sinuses. Postoperative changes are noted in the maxillary sinuses and ethmoid air cells.
--- NOTE | 2017-06-16 08:19 | ED ---
Progress - Progress Note Progress Note: Pt's final CXR read reveals nodules in the Lt mid and lower lung griffith. CT of the chest to suggest for further evaluation. Spoke with Deandra RN @ [facility]. She will make sure the patient has follow- up testing as recommended by radiologist. Re-Evaluation - Re-Evaluation First Eval Re-Evaluation Time: 01:50 Comment: The pt's daughter is now in the room and the daughter is bringing up a new complaint that her mother was so confused earlier, which is very different from her baseline. Pt is happy and laughing in the room. Second Eval Re-Evaluation Time: 03:10 Comment: Discussed brain CT results with daughter. Course/Dx - Diagnoses Provider Diagnoses: Constipation Discharge - Sign-Out/Discharge Documenting (check all that apply): Post-Discharge Follow Up - Discharge Plan Condition: Stable Disposition: HOME Patient Education Materials: Constipation (ED) Referrals: [facility] [place] [facility] [place] [Outside] - 3 Days Additional Instructions: RETURN TO EMERGENCY DEPARTMENT FOR ANY NEW OR WORSENING SYMPTOMS - Billing Disposition and Condition Condition: STABLE Disposition: HOME
== END 2017-06-11 03:47 | disposition home or self-care (01) ==
LOC: ED 22:19
DX: K59.00 Constipation, unspecified (principal); J44.9 Chronic obstructive pulmonary disease, unspecified; Z87.891 Personal history of nicotine dependence; I34.1 Nonrheumatic mitral (valve) prolapse; K21.9 Gastro-esophageal reflux disease without esophagitis; K58.9 Irritable bowel syndrome, unspecified; F03.90 Unspecified dementia, unspecified severity, without behavioral disturbance, psychotic disturbance, mood disturbance, and anxiety; M06.9 Rheumatoid arthritis, unspecified
CPT/HCPCS: 36415; 70450; 71045; 74177; 80053; 81003; 83605; 83690; 83735; 83880; 84145; 85025; 85610; 85730; 86140; 96360; 96374; 99284; J2060; J2405

== ENCOUNTER 2017-06-30 01:08 | Inpatient (IN) | payer MEDICARE, MEDICAID ==
--- NOTE | 2017-06-30 01:27 | ED ---
Head Injury - HPI Summary HPI Summary: Patient from [facility] complains of unwitnessed fall tonight with laceration to upper lip, right hip pain, and increased urinary frequency, and burning with urination 2 weeks. Patient states she does not remember why she fell, but but states she has pain in right hip and upper lip. Patient poor historian, hx of dementia, alert but not oriented. LOC unknown. Denies fever , cough, sore throat, CP, SOB, N/V/D, abdominal pain. Medical history is dementia, COPD, constipation, RA. Patient on home O2 at 2L. - History Of Current Complaint Stated Complaint: FALL Time Seen by Provider: 06/30/17 01:14 Hx Obtained From: Patient, EMS Mechanism Of Injury: Fall From A Standing Position Onset/Duration: Started Hours Ago Onset of Pain: Immediate Severity Currently: Mild Severity Initially: Mild - Allergies/Home Medications Allergies/Adverse Reactions: Allergies Allergy/AdvReac Type Severity Reaction Status Date / Time amoxicillin Allergy GI Upset Verified 04/27/17 14:13 clavulanic acid Allergy GI Upset Verified 04/27/17 14:14 [From Augmentin] niacin Allergy Unknown Verified 04/27/17 14:14 Reaction Details Sulfa (Sulfonamide Allergy GI Upset Verified 04/27/17 14:13 Antibiotics) PMH/Surg Hx/FS Hx/Imm Hx Endocrine/Hematology History: Denies: Hx Diabetes Cardiovascular History: Reports: Other Cardiovascular Problems/Disorders - Mitral valve prolapse Denies: Hx Congestive Heart Failure, Hx Hypertension Respiratory History: Reports: Hx Chronic Obstructive Pulmonary Disease (COPD) GI History: Reports: Hx Gastroesophageal Reflux Disease, Hx Irritable Bowel History: Denies: Hx Renal Disease Musculoskeletal History: Reports: Hx Arthritis, Hx Rheumatoid Arthritis, Hx Orthopedic Injury - hands fx repairs Denies: Hx Osteoporosis Sensory History: Reports: Hx Contacts or Glasses, Hx Hearing Problem - hard hearing Denies: Hx Hearing Aid Opthamlomology History: Reports: Hx Contacts or Glasses Neurological History: Reports: Hx Dementia Psychiatric History: Reports: Hx Anxiety, Hx Depression - Surgical History Surgery Procedure, Year, and Place: hysterectomy, tonsillectomy, knee replacement, bilat hand fx repairs. - Family History Known Family History: Positive: Cardiac Disease, Other - [place] Negative: Diabetes - Social History Alcohol Use: None Substance Use Type: Reports: None Smoking Status (MU): Former Smoker Review of Systems Constitutional: Negative Eyes: Negative Positive: Epistaxis Cardiovascular: Negative Respiratory: Negative Gastrointestinal: Negative Positive: burning, dysuria, frequency Positive: Arthralgia Skin: Negative Neurological: Negative Psychological: Normal All Other Systems Reviewed And Are Negative: Yes Physical Exam - Summary Physical Exam Summary: Laceration to interior surface of upper lip. Tenderness to palpation right hip. No ecchymosis, deformity, swelling, hematoma noted to face, mouth, head, neck, back, chest, abdomen, bilateral hips, bilateral lower extremities, bilateral upper extremities. No tenderness to palpation with face, head, neck, back, chest wall, abdomen, bilateral lower extremities, bilateral upper extremities. No pain with passive mild motion of bilateral upper extremities. Full range of motion of head and neck, and jaw. Neuro exam normal Triage Information Reviewed: Yes Vital Signs Reviewed: Yes Completion Of Physical Exam Limited Due To: Dementia Appearance: Positive: Well-Appearing Skin: Positive: Warm Eyes: Positive: Normal Neck: Positive: Supple Respiratory/Lung Sounds: Positive: Clear to Auscultation Cardiovascular: Positive: Normal Abdomen Description: Positive: Nontender Musculoskeletal: Positive: Normal Neurological: Positive: Normal Psychiatric: Positive: Normal AVPU Assessment: Alert - Angela Coma Scale Best Eye Response: 4 - Spontaneous Best Motor Response: 6 - Obeys Commands Best Verbal Response: 4 - Confused Coma Scale Total: 14 Procedures - Laceration/Wound Repair 1 Location: mouth Description: Linear Anesthesia: Local, 1.0%, Lido Length, Depth and Shape: 3cm x .5cm Betadine Prep?: No Irrigated w/ Saline (ccs): 10 Laceration/Wound Explored: clean Closure: Single Layer Debridement: minimal Suture Type: Chromic Number of Sutures: 2 - 4.0 Layer Closure?: No Diagnostics - Laboratory Result Diagrams: 06/30/17 02:06 06/30/17 02:06 Lab Statement: Any lab studies that have been ordered have been reviewed, and results considered in the medical decision making process. - Radiology hip Xray Interpretation: Positive (See Comments) - Positive for constipation. Negative for acute hip injury Radiology Interpretation Completed By: ED Physician CXR Xray Interpretation: No Acute Changes Radiology Interpretation Completed By: ED Physician - CT brain CT Interpretation: No Acute Changes CT Interpretation Completed By: Radiologist Head Injury Course/Dx Course Of Treatment: Febrile, elevated white count (on prednisone daily), elevated CRP. Unwitnessed fall. Patient normally on home O2 at 2 L. Vital signs stable. Chest x-ray negative, hip x-ray negative, head CT negative. - Diagnoses Provider Diagnoses: Fall, Constipation, Laceration, Syncope, UTI (urinary tract infection) - Physician Notifications Discussed Care Of Patient With: Ann Condon Time Discussed With Above Provider: 03:45 - admit Discharge - Sign-Out/Discharge Documenting (check all that apply): Discharge/Admit/Transfer - Discharge Plan Condition: Stable Disposition: ADMITTED TO [facility] Referrals: No Primary Care Phys,NOPCP [Primary Care Provider] - - Billing Disposition and Condition Condition: STABLE Disposition: [facility] [place]
[2017-06-30 02:13] LABS: Hematocrit 42 % (35-47); Hemoglobin 14.1 g/dl (12.0-16.0); Mean Corpuscular HGB Conc 34 g/dl (31-36); Mean Corpuscular Hemoglobin 31 pg (27-31); Mean Corpuscular Volume 92 fL (80-97); Mean Platelet Volume 7.3 um3 (7.4-10.4); Platelet Count 239 10^3/ul (150-450); Red Blood Count 4.56 10^6/ul (4.0-5.4); Red Cell Distribution Width 15 % (10.5-15); White Blood Count 14.6 10^3/ul (3.5-10.8)
[2017-06-30 02:30] LABS: ABS Basophils 0.1 10^3/ul (0-0.2); ABS Eosinophils 0.1 10^3/ul (0-0.6); ABS Monocytes 1.7 10^3/ul (0-0.8); ABS Neutrophils 11.7 10^3/ul (1.5-7.7); ABS Nucleated RBC 0 10^3/ul; EGFR Non-African American 46.9 (>60); Eosinophil % 0.5 % (0-6); Nucleated Red Blood Cells % 0
[2017-06-30] MEDS ORDERED: Acetaminophen TAB* 325 MG PO ONE (03:13)
[2017-06-30 03:23] LABS: Urine Appearance Cloudy; Urine Blood 1+ (Negative); Urine Color Yellow; Urine Ketones Trace (Negative); Urine Protein 1+(30 mg/dL) (Negative); Urine Specific Gravity 1.012 (1.010-1.030); Urine Urobilinogen Negative (Negative)
[2017-06-30] MEDS ORDERED: NS 0.9% 500 ML* 500 ML IV ONE (03:42)
[2017-06-30] MEDS ORDERED: Levofloxacin 750 MG IVPREMIX(* 750 MG/150 ML BAG IVPB ONE (03:42)
[2017-06-30] MEDS ORDERED: Albuterol 2.5 MG/3 ML NEB.SOL* (0.083%) INH PRN (04:07)
[2017-06-30] MEDS ORDERED: NS 0.9% 1000 ML* 1,000 ML IV SCH ×2 (04:15→15:37)
[2017-06-30] MEDS: cefTRIAXone(*) 1 GM in NS 0.9% 50 ML* 50 ML IVPB SCH (04:21)
[2017-06-30 07:29] LABS: Hematocrit 37 % (35-47); Hemoglobin 12.4 g/dl (12.0-16.0); Mean Corpuscular HGB Conc 33 g/dl (31-36); Mean Corpuscular Hemoglobin 31 pg (27-31); Mean Corpuscular Volume 92 fL (80-97); Mean Platelet Volume 7.5 um3 (7.4-10.4); Platelet Count 251 10^3/ul (150-450); Red Blood Count 4.08 10^6/ul (4.0-5.4); Red Cell Distribution Width 14 % (10.5-15); White Blood Count 13.9 10^3/ul (3.5-10.8)
[2017-06-30 07:33] LABS: ABS Basophils 0.1 10^3/ul (0-0.2); ABS Eosinophils 0 10^3/ul (0-0.6); ABS Monocytes 1.7 10^3/ul (0-0.8); ABS Nucleated RBC 0 10^3/ul; Eosinophil % 0.3 % (0-6); Lymphocyte % 7.5 % (25-47); Nucleated Red Blood Cells % 0.1
[2017-06-30 07:49] LABS: EGFR Non-African American 49.3 (>60)
--- NOTE | 2017-06-30 08:05 | RAD ---
INDICATION: Fall. Intracranial injury. COMPARISON: CT brain June 11, 2017 TECHNIQUE: Noncontrast axial source images were acquired from the skull base to the vertex. FINDINGS: Ventricles/sulci: There is cortical atrophy with compensatory dilatation of the CSF spaces. Brain parenchyma: There is periventricular and subcortical white matter change compatible with chronic ischemia. Intracranial hemorrhage:None. Extra-axial spaces: There are no abnormal extra axial fluid collections or evidence of extra-axial mass. Calvarium: There is no calvarial fracture or other calvarial abnormality. Scalp: There is no evidence of scalp or extracalvarial soft tissue abnormality. Paranasal sinuses/mastoid: There is mucosal thickening of maxillary antra. There are postsurgical changes with removal of the medial gao of maxillary antrum and multiple ethmoid air cells. The surgery to the nasal turbinates as well. Other: None. IMPRESSION: NO ACUTE INTRACRANIAL FINDINGS. PRIOR SINUS SURGERY.
[2017-06-30] MEDS: Albuterol/Ipratropium NEB.SOL* Albuterol 2.5 MG/Ipratropium 0.5 MG 3 ML INH SCH ×3 (08:06→20:01)
[2017-06-30] MEDS: Mometasone/Formoter 200/5 MDI INH SCH ×2 (08:06→20:02)
--- NOTE | 2017-06-30 08:07 | RAD ---
Indication: Fall. Single frontal view of the chest performed at 0158 hours was reviewed. Comparison is made with previous exam dated prior CT dated 07-09 and June 10, 2017.. No mediastinal shift is noted. Heart is of normal size and configuration. Lung griffith appear clear. Healed rib fractures in the left ribs are noted. These are unchanged. IMPRESSION: NO ACTIVE CARDIOPULMONARY DISEASE IS NOTED.
[2017-06-30] MEDS: Umeclidin 62.5 MDI(NF) 1 INH MDI INH SCH (08:09)
--- NOTE | 2017-06-30 08:09 | RAD ---
INDICATION: Trauma, hip pain. COMPARISON: There are no prior studies available for comparison. TECHNIQUE: An AP view of the pelvis and frontal and lateral views of both hips were obtained. FINDINGS: The bones are normal alignment. No fracture is seen. Joint spaces appear maintained. IMPRESSION: NO EVIDENCE FOR FRACTURE, IF THE PATIENT'S SYMPTOMS PERSIST RECOMMEND FOLLOW-UP IMAGING.
[2017-06-30] MEDS: Heparin VIAL(*) 5000 UNITS/ML VIAL (FIVE THOUSAND) SUBCUT SCH ×3 (08:13→21:28)
[2017-06-30] MEDS: predniSONE TAB* 20 MG PO SCH (11:00)
[2017-06-30] MEDS: Famotidine TAB* 20 MG PO SCH ×2 (11:01→21:29)
[2017-06-30] MEDS: busPIRone TAB* 5 MG PO SCH ×3 (11:02→21:28)
[2017-06-30] MEDS: oxyCODONE TAB* 5 MG TAB PO PRN ×3 (11:07→21:27)
--- NOTE | 2017-06-30 13:30 | HP ---
CC: Debbie Guerrero * HISTORY AND PHYSICAL: DATE OF ADMISSION: 06/30/17. PRIMARY CARE PROVIDER: Debbie Guerrero ATTENDING PHYSICIAN WHILE IN THE HOSPITAL: Dr. Ann Condon * (report dictated by Elias Sharma NP). CHIEF COMPLAINT: 1. Fall. 2. Dysuria. 3. Cough. HISTORY OF PRESENTING ILLNESS: Mrs. Gold is a 71-year-old female patient. She does have an underlying history of dementia and she is an underlying poor historian. She presents today. She states this evening around 2029, she sustained a fall. She states she just slipped. She states that she did hit the front of her face. She called out for help. She was directed to the ER for further evaluation because it was noted that she had a laceration to her face particularly her upper lip. She also does give report that she has recently been treated for what she calls bronchitis. She has been having a cough, it is a nonproductive. She has not had any fevers or chills, but she is admitting to having dysuria and frequency. No back pain and no abdominal pain. The patient does state that she again has had frequency and dysuria, but when asked how long this has been going on for, which she is really unable to tell me. She denied any vomiting. No nausea, no diarrhea. She states she did not faint or pass out tonight, she states she simply slipped. She came into the ED today. Of note is that she had an elevated white count, appeared to have a UTI. In addition, this required sutures to her upper lip. Because of the UTI, the fact that she in on chronic steroids for rheumatoid arthritis, we were asked to evaluate for admission. PAST MEDICAL HISTORY: Significant for: 1. Rheumatoid arthritis. 2. Depression. 3. Dementia. 4. COPD. She does wear 2 L at night. 5. IBS. 6. GERD. PAST SURGICAL HISTORY: The patient has had a tonsillectomy. HOME MEDICATIONS: We are updating these as we speak, include: 1. Prednisone 20 mg daily. 2. Oxycodone 5 mg every 6 hours as needed. 3. BuSpar 5 mg p.o. t.i.d. 4. Incruse Ellipta 1 inhalation inhaled daily. 5. Zantac 75 mg p.o. b.i.d. 6. Systane eyedrops 1 drop each eye, both eyes b.i.d. 7. Arriba-3 fatty acids 1000 mg p.o. daily. 8. Maalox 30 cc every 4 hours as needed. 9. Levaquin 500 mg daily. 10. Ativan 0.5 mg every 8 hours as needed. 11. Flonase 1 spray both nares daily. 12. Colace 100 mg p.o. b.i.d. as needed. 13. Artificial tears 1 drop both eyes every 4 hours as needed. 14. Prolia 60 mg subcu every 6 months. 15. Oyster shell calcium tablet 1 tablet every 48 hours. 16. Symbicort 2 puffs inhaled b.i.d. 17. Lipitor 10 mg p.o. daily. 18. Albuterol 1 neb every 6 hours as needed. ALLERGIES: Allergies to medications include AUGMENTIN, NIACIN, SULFA. FAMILY HISTORY: Mother had a history of CHF. Father had a history of Alzheimer 's dementia. SOCIAL HISTORY: She is a former smoker. She quit in 2000. She does not drink alcohol. She was at [facility]. Surrogate decision maker is her son and daughter. REVIEW OF SYSTEMS: There is no documented fever. She denied any significant weight change. There is no double vision. There is no ear discharge. She is denying having any rhinorrhea or sore throat. She does admit to having a cough. No shortness of breath. No orthopnea. There is no nocturnal dyspnea. She denies having any abdominal pain. There is no flank tenderness. There is dysuria. There was frequency. No seizure. No loss of conscious. No pruritus and no skin ulcerations. Review of 14 systems completed, all others were negative. PHYSICAL EXAMINATION GENERAL: At this time, Mrs. Gold is a 71-year-old female patient. She is sitting in the ED stretcher. She does not appear to be in any acute distress. VITAL SIGNS: Blood pressure 162/92, pulse 90, respirations 16, O2 sat 98%, temperature of 100.1. HEENT: Head atraumatic with the exception she does have laceration noted to her upper lip, otherwise atraumatic. Throat: Oral mucosa appears to be dry. No oropharyngeal erythema. Eyes: EOMs are intact. Sclerae are anicteric and not pale. NECK: Supple. LUNGS: Clear to auscultation bilaterally. They were diminished in the bases. No wheezes, rales, or rhonchi. HEART: Sounds S1, S2. Regular rate and rhythm. No murmurs, rubs or gallops. ABDOMEN: Soft, flat, nontender. No CVA tenderness. Bowel sounds were present. EXTREMITIES: Pulses were 2+ throughout. She is moving all 4 extremities with 5 /5 strength. NEUROLOGICAL: She is awake, she is alert. She thinks she is at [facility], otherwise she is oriented x3. Speech clear. Tongue midline. Instructional Design Technologist were equal. No gross focal deficits. SKIN: Grossly intact. DIAGNOSTIC STUDIES/LAB DATA: WBC of 14.6, RBC of 4.56, hemoglobin 14.1, hematocrit of 42, platelet count of 239. Sodium is 137, potassium 4.1, chloride of 106, bicarb of 20, BUN 22, creatinine 1.14, glucose of 95, calcium 10.4, total bili of 1, AST 14, ALT 17, alk phos 56, CRP 124, albumin of 3.5. Urine showed 1+ protein, trace ketones, 1+ blood, positive nitrites, 2+ leukocyte esterase, 2+ wbc's, 2+ rbc's, 1+ bacteria. She did have imaging here in the ED. She did have a CT brain, impression: No acute traumatic pathology. On review of x-ray, I did not appreciate any acute infiltrates or effusions. I did look at her hip x-ray. I did not see any gross fracture and she is moving her extremities and having pain currently. She did have an EKG obtained today. EKG showed a normal sinus rhythm, rate of 90, no ST elevation or T-wave inversions. On review of the previous EKG, it is similar, rate is a little faster today. Old medical records were reviewed. ASSESSMENT AND PLAN: Mrs. Gold is a 71-year-old female patient with multiple medical problems, coming into the ED today with complaints of fall, on evaluation found to have elevated WBC count in addition to urinary tract infection. She will be admitted under observation status for: 1. Fall, I suspect this is probably secondary to weakness related to her urinary tract infection. She did not syncopize. My plan would be to go ahead and get physical therapy evaluation and in addition to this, treat the underlying urinary tract infection. 2. Urinary tract infection. At this point, I will go ahead and put her on Rocephin. She has had cultures in the past that grew out E. coli that was sensitive to Rocephin. So, we will continue this and we will continue to hydrate and we will continue to follow. 3. Rheumatoid arthritis. Continue her steroids. 4. Depression. Continue with supportive care. 5. Dementia. Continue with supportive care. 6. History of irritable bowel syndrome. Continue meds as prescribed. 7. Chronic obstructive pulmonary disease. Continue with her inhalers. It is stable. 8. Gastroesophageal reflux disease. Continue PPI therapy. 9. DVT prophylaxis. She will be placed on heparin subcu. 7. Code status: She is full code. 8. Fluids, electrolytes, nutrition: She can have a regular diet. TIME SPENT: On the admission was approximately 60 minutes; greater than half the time was spent [id number] with the patient obtaining my history and physical, other half the time was spent going over the plan of care with the patient and implementing plan of care. I did discuss the plan of care with my attending, Dr. Condon; she is in agreement. ELIAS SHARMA, WINDSCREEN FITTER [id number]/[facility] #: [id number] EDUARDO
[2017-06-30] MEDS: Acetaminophen TAB* 325 MG PO PRN ×2 (15:13→19:29)
[2017-06-30] MEDS: Ondansetron ODT TAB* 4 MG SL PRN (15:13)
--- NOTE | 2017-06-30 15:32 | PN ---
Subjective Date of Service: 06/30/17 Interval History: Patient still pleasantly confused. A/Ox2 and gives answers that were very close to correct. Patient complains of continued dysuria. Patient states it is not improved. Patient states that she has been having fevers and chills but cannot further elaborate. Patient has been having nausea which improved with Zofran. Patient denies CP, SOB, Abdominal pain, diarrhea, or other pain. Family History: Unchanged from Admission Social History: Unchanged from Admission Past Medical History: Unchanged from Admission Objective Active Medications: Acetaminophen (Tylenol Tab*) 650 mg PO Q4H PRN PRN Reason: FEVER/PAIN Last Admin: 06/30/17 15:13 Dose: 650 mg Albuterol (Ventolin 2.5 Mg/3 Ml Neb.Stephanie*) 2.5 mg INH Q2H PRN PRN Reason: SOB/WHEEZING Albuterol/Ipratropium (Duoneb (Albuterol 2.5 Mg/Ipratropium 0.5 Mg)) 1 neb INH RT.[id number] AWAKE [facility] Last Admin: 06/30/17 13:36 Dose: 1 neb Atorvastatin Calcium (Lipitor*) 10 mg PO QPM [facility] Buspirone HCl (Buspar Tab*) 5 mg PO TID [facility] Last Admin: 06/30/17 15:13 Dose: 5 mg Famotidine (Pepcid Tab*) 10 mg PO BID [facility] PRN Reason: Protocol Last Admin: 06/30/17 11:01 Dose: 10 mg Heparin Sodium (Porcine) (Heparin Vial(*)) 5,000 units SUBCUT Q8HR [facility] Last Admin: 06/30/17 15:13 Dose: 5,000 units Sodium Chloride (Ns 0.9% 1000 Ml*) 1,000 mls @ 75 mls/hr IV PER RATE [facility] Ceftriaxone Sodium 1 gm/ (Sodium Chloride) 50 mls @ 200 mls/hr IVPB Q24H [facility] Last Admin: 06/30/17 04:21 Dose: 200 mls/hr Mometasone Furoate/Formoterol Fumar (Dulera 200/5 Mdi*) 2 puff INH BID [facility] PRN Reason: Protocol Last Admin: 06/30/17 08:06 Dose: 2 puff Ondansetron HCl (Zofran Odt Tab*) 4 mg SL Q6H PRN PRN Reason: NAUSEA/VOMITING Last Admin: 06/30/17 15:13 Dose: 4 mg Oxycodone HCl (Roxycodone Tab*) 10 mg PO Q8HR PRN PRN Reason: PAIN Last Admin: 06/30/17 11:07 Dose: 10 mg Prednisone (Deltasone Tab*) 20 mg PO DAILY [facility] Last Admin: 06/30/17 11:00 Dose: 20 mg Umeclidinium [place] (Incruse Ellipta Mdi (Nf)) 1 inh INH QAM [facility] Last Admin: 06/30/17 08:09 Dose: Not Given Vital Signs - 8 hr 06/30/17 06/30/17 06/30/17 08:09 08:25 11:07 Temperature Pulse Rate Respiratory 18 16 16 Rate Blood Pressure (mmHg) O2 Sat by Pulse Oximetry 06/30/17 06/30/17 06/30/17 12:02 13:07 13:09 Temperature 98.6 F Pulse Rate 89 Respiratory 16 16 16 Rate Blood Pressure 145/70 (mmHg) O2 Sat by Pulse 97 Oximetry 06/30/17 13:38 Temperature Pulse Rate 89 Respiratory 19 Rate Blood Pressure (mmHg) O2 Sat by Pulse 97 Oximetry Oxygen Devices in Use Now: Nasal Cannula Appearance: Patient is a 71yo female who appears stated age and is sitting in the bed in [facility]. Eyes: No Scleral Icterus, PERRLA Ears/Nose/Mouth/Throat: NL Teeth, Lips, Gums, Clear Oropharnyx, Mucous Membranes Moist Neck: NL Appearance and Movements; NL JVP, Trachea Midline Respiratory: Symmetrical Chest Expansion and Respiratory Effort, Clear to Auscultation Cardiovascular: NL Sounds; No Murmurs; No JVD, RRR, No Edema Abdominal: NL Sounds; No Tenderness; No Distention, No Hepatosplenomegaly, - - No CVA tenderness. Lymphatic: No Cervical Adenopathy Extremities: No Edema, No Clubbing, Cyanosis Skin: No Rash or Ulcers, No Nodules or Sclerosis Neurological: NL Sensation, NL Muscle Strength and Tone, - - CN II-XII intact. A /Ox2. Result Diagrams: 06/30/17 06:55 06/30/17 06:55 Microbiology and Other Data: Microbiology 06/30/17 06:15 Nasal Screen MRSA (PCR)(ANGELIKA) - Final Nasal Mrsa Not Detected 06/30/17 06:15 Influenza Types A,B Antigen (ANGELIKA) - Final Nasopharyngeal Specimen received for Influenza A/B Molecular testing Assess/Plan/Problems-Billing Assessment: Patient is a 71yo female with a PMH for RA, Dementia, Depression, who is here with a fall and was found to have a UTI which is the likely cause of her weakness. - Patient Problems (1) Fall Current Visit: Yes Status: Acute Comment: Likely due to weakness from UTI. PT eval apprecaited. Will discharge back to [facility] when able. No syncope reported. No further cardiac workup indicated. (2) UTI (urinary tract infection) Current Visit: Yes Status: Acute Comment: Grossly positive UA. Treat with Ceftriaxone. Likely cause of weakness. (3) Rheumatoid arthritis Current Visit: No Status: Acute Code(s): M06.9 - RHEUMATOID ARTHRITIS, UNSPECIFIED SNOMED Code(s): 31212037 Comment: On prednisone 20mg at home daily. Significant deformity. CRP significantly increased. Consider steroid sparing agent outpatient. (4) Dementia Current Visit: No Status: Acute Code(s): F03.90 - UNSPECIFIED DEMENTIA WITHOUT BEHAVIORAL DISTURBANCE SNOMED Code(s): 61024189 Comment: Continue aricept. Recent worsening with negative workup. Likely due to UTI. Discussed with outpatient provider at [facility]. (5) Depression Current Visit: No Status: Acute Code(s): F32.9 - MAJOR DEPRESSIVE DISORDER, SINGLE EPISODE, UNSPECIFIED SNOMED Code(s): 35848931 Comment: Euthymic, Continue Cymbalta, Wellbutrin, Buspar. Has tardive dyskinesia from Risperdone. Will hold in hospital. (6) CKD (chronic kidney disease) Current Visit: Yes Status: Acute Code(s): N18.9 - CHRONIC KIDNEY DISEASE, UNSPECIFIED SNOMED Code(s): 675129703 Comment: Stage III. At baseline. Control BP and DM. (7) Nausea & vomiting Current Visit: No Status: Acute Code(s): R11.2 - NAUSEA WITH VOMITING, UNSPECIFIED SNOMED Code(s): 62297930 Comment: Chronic Nausea, Continue zofran. (8) DVT prophylaxis Current Visit: No Status: Acute Code(s): FRS5909 - SNOMED Code(s): 622449682 (9) Full code status Current Visit: No Status: Acute Code(s): Z78.9 - OTHER SPECIFIED HEALTH STATUS SNOMED Code(s): 361024973
[2017-06-30] MEDS ORDERED: Ondansetron ODT TAB* 4 MG PO PRN (15:40)
[2017-06-30] MEDS: Atorvastatin* 10 MG TAB PO SCH (16:49)
[2017-06-30] MEDS ORDERED: Senna/Docusate (NF) TAB PO SCH (21:00)
[2017-06-30] MEDS: Senna TAB PO SCH (21:27)
[2017-06-30] MEDS: CMCS: Melatonin (NF) 3 MG TAB PO SCH (21:28)
[2017-06-30] MEDS: DULoxetine DR CAP* 60 MG CAP.DR PO SCH (21:28)
[2017-06-30] MEDS: Dicyclomine CAP* 10 MG PO SCH (21:28)
[2017-06-30] MEDS: Docusate CAP* 100 MG PO SCH (21:28)
[2017-06-30] MEDS: buPROPion SR TAB.SR* 100 MG PO SCH (21:28)
[2017-06-30] MEDS: Donepezil TAB* 5 MG PO SCH (21:29)
[2017-07-01] MEDS: Albuterol/Ipratropium NEB.SOL* Albuterol 2.5 MG/Ipratropium 0.5 MG 3 ML INH SCH ×4 (01:30→20:33)
[2017-07-01] MEDS: cefTRIAXone(*) 1 GM in NS 0.9% 50 ML* 50 ML IVPB SCH (05:31)
[2017-07-01] MEDS: Heparin VIAL(*) 5000 UNITS/ML VIAL (FIVE THOUSAND) SUBCUT SCH ×3 (05:31→23:24)
[2017-07-01 06:04] LABS: ABS Basophils 0.1 10^3/ul (0-0.2); ABS Eosinophils 0.1 10^3/ul (0-0.6); ABS Lymphocytes 1.4 10^3/ul (1.0-4.8); ABS Monocytes 1.1 10^3/ul (0-0.8); ABS Neutrophils 7.5 10^3/ul (1.5-7.7); ABS Nucleated RBC 0 10^3/ul; Eosinophil % 1.3 % (0-6); Hematocrit 36 % (35-47); Hemoglobin 11.8 g/dl (12.0-16.0); Mean Corpuscular HGB Conc 33 g/dl (31-36); Mean Corpuscular Hemoglobin 31 pg (27-31); Mean Corpuscular Volume 94 fL (80-97); Mean Platelet Volume 7.8 um3 (7.4-10.4); Nucleated Red Blood Cells % 0.1; Platelet Count 248 10^3/ul (150-450); Red Blood Count 3.84 10^6/ul (4.0-5.4); Red Cell Distribution Width 15 % (10.5-15); White Blood Count 10.3 10^3/ul (3.5-10.8)
[2017-07-01 06:16] LABS: EGFR Non-African American 60.8 (>60)
[2017-07-01] MEDS: oxyCODONE TAB* 5 MG TAB PO PRN ×2 (06:29→14:36)
[2017-07-01] MEDS: Mometasone/Formoter 200/5 MDI INH SCH ×2 (08:41→20:34)
[2017-07-01] MEDS: Umeclidin 62.5 MDI(NF) 1 INH MDI INH SCH (08:42)
[2017-07-01] MEDS: buPROPion SR TAB.SR* 100 MG PO SCH ×2 (09:22→20:25)
[2017-07-01] MEDS: Memantine TAB* 5 MG PO SCH (09:22)
[2017-07-01] MEDS: Famotidine TAB* 20 MG PO SCH ×2 (09:23→20:27)
[2017-07-01] MEDS: busPIRone TAB* 5 MG PO SCH ×3 (09:23→20:26)
[2017-07-01] MEDS: Dicyclomine CAP* 10 MG PO SCH ×2 (09:23→20:26)
[2017-07-01] MEDS: predniSONE TAB* 20 MG PO SCH (09:23)
--- NOTE | 2017-07-01 13:57 | PN ---
Subjective Date of Service: 07/01/17 Interval History: Patient feels "lousy" today. Denies any pain or specific complaints. Patient denies F/C, N/V, abdominal pain, diarrhea, CP, SOB, Dysuria, or other pain. Patient is A/Ox3 but is somewhat confused about why she is in the hospital. Patient brought up concerns about being harassed by other residents at [facility], but cannot elaborate further. Patient woke up feeling "shaky" but this passed quickly. Patient had no other symptoms and has not had anything like this before. Family History: Unchanged from Admission Social History: Unchanged from Admission Past Medical History: Unchanged from Admission Objective Active Medications: Acetaminophen (Tylenol Tab*) 650 mg PO Q4H PRN PRN Reason: FEVER/PAIN Last Admin: 06/30/17 19:29 Dose: 650 mg Albuterol (Ventolin 2.5 Mg/3 Ml Neb.Stephanie*) 2.5 mg INH Q2H PRN PRN Reason: SOB/WHEEZING Albuterol/Ipratropium (Duoneb (Albuterol 2.5 Mg/Ipratropium 0.5 Mg)) 1 neb INH [id number] AWAKE [facility] Last Admin: 07/01/17 08:41 Dose: 1 neb Atorvastatin Calcium (Lipitor*) 10 mg PO QPM [facility] Last Admin: 06/30/17 16:49 Dose: 10 mg Bupropion HCl (Wellbutrin Sr Tab*) 200 mg PO BID [facility] Last Admin: 07/01/17 09:22 Dose: 200 mg Buspirone HCl (Buspar Tab*) 5 mg PO TID [facility] Last Admin: 07/01/17 09:23 Dose: 5 mg Dicyclomine HCl (Bentyl Cap*) 10 mg PO BID [facility] Last Admin: 07/01/17 09:23 Dose: 10 mg Docusate Sodium (Colace Cap*) 100 mg PO BEDTIME [facility] Last Admin: 06/30/17 21:28 Dose: 100 mg Donepezil HCl (Aricept Tab*) 10 mg PO BEDTIME [facility] Last Admin: 06/30/17 21:29 Dose: 10 mg Duloxetine HCl (Cymbalta Cap*) 60 mg PO BEDTIME [facility] Last Admin: 06/30/17 21:28 Dose: 60 mg Famotidine (Pepcid Tab*) 10 mg PO BID [facility] PRN Reason: Protocol Last Admin: 07/01/17 09:23 Dose: 10 mg Heparin Sodium (Porcine) (Heparin Vial(*)) 5,000 units SUBCUT Q8HR [facility] Last Admin: 07/01/17 05:31 Dose: 5,000 units Ceftriaxone Sodium 1 gm/ (Sodium Chloride) 50 mls @ 200 mls/hr IVPB Q24H [facility] Last Admin: 07/01/17 05:31 Dose: 200 mls/hr Sodium Chloride (Ns 0.9% 1000 Ml*) 1,000 mls @ 75 mls/hr IV PER RATE [facility] Stop: 07/01/17 14:19 Last Admin: 07/01/17 02:10 Dose: 75 mls/hr Melatonin (Melatonin (Nf)) 3 mg PO BEDTIME [facility] Last Admin: 06/30/17 21:28 Dose: 3 mg Memantine (Namenda Tab*) 5 mg PO DAILY [facility] Last Admin: 07/01/17 09:22 Dose: 5 mg Mometasone Furoate/Formoterol Fumar (Dulera 200/5 Mdi*) 2 puff INH BID [facility] PRN Reason: Protocol Last Admin: 07/01/17 08:41 Dose: 2 puff Ondansetron HCl (Zofran Odt Tab*) 4 mg SL Q6H PRN PRN Reason: NAUSEA/VOMITING Last Admin: 06/30/17 15:13 Dose: 4 mg Ondansetron HCl (Zofran Odt Tab*) 4 mg PO Q6H PRN PRN Reason: NAUSEA Last Admin: 07/01/17 06:30 Dose: 4 mg Oxycodone HCl (Roxycodone Tab*) 10 mg PO Q8HR PRN PRN Reason: PAIN Last Admin: 07/01/17 06:29 Dose: 10 mg Prednisone (Deltasone Tab*) 20 mg PO DAILY [facility] Last Admin: 07/01/17 09:23 Dose: 20 mg Senna (Senokot Tab*) 1 tab PO BEDTIME [facility] Last Admin: 06/30/17 21:27 Dose: 1 tab Umeclidinium Avalon (Incruse Ellipta Mdi (Nf)) 1 inh INH QAM [facility] Last Admin: 07/01/17 08:42 Dose: Not Given Vital Signs - 8 hr 07/01/17 07/01/17 07/01/17 08:00 08:46 09:23 Temperature Pulse Rate 86 Respiratory 20 16 18 Rate Blood Pressure (mmHg) O2 Sat by Pulse 92 Oximetry 07/01/17 07/01/17 11:21 11:32 Temperature 97.7 F Pulse Rate 83 Respiratory 18 18 Rate Blood Pressure 144/69 (mmHg) O2 Sat by Pulse 97 Oximetry Oxygen Devices in Use Now: Nasal Cannula Appearance: Patient is a 71yo female who appears stated age, has a bruise to her upper lip, and is sitting in the bed in NAD. Eyes: No Scleral Icterus, PERRLA Ears/Nose/Mouth/Throat: NL Teeth, Lips, Gums, Clear Oropharnyx, Mucous Membranes Moist Neck: NL Appearance and Movements; NL JVP, Trachea Midline Respiratory: Symmetrical Chest Expansion and Respiratory Effort, Clear to Auscultation Cardiovascular: NL Sounds; No Murmurs; No JVD, RRR, No Edema Abdominal: NL Sounds; No Tenderness; No Distention, No Hepatosplenomegaly Lymphatic: No Cervical Adenopathy Extremities: No Edema, No Clubbing, Cyanosis Skin: No Nodules or Sclerosis, - - Upper lip ecchymosis with single suture and no discharge. Neurological: Alert and Oriented x 3, NL Sensation, NL Muscle Strength and Tone , - - CN II-XII intact. Lip smacking consistent with tardive dyskinesia. Result Diagrams: 07/01/17 05:22 07/01/17 05:22 Microbiology and Other Data: Microbiology 06/30/17 06:15 Nasal Screen MRSA (PCR)(ANGELIKA) - Final Nasal Mrsa Not Detected 06/30/17 06:15 Influenza Types A,B Antigen (ANGELIKA) - Final Nasopharyngeal Specimen received for Influenza A/B Molecular testing Assess/Plan/Problems-Billing Assessment: Patient is a 71yo female with a PMH for RA, Dementia, Depression, who is here with a fall and was found to have a UTI which is the likely cause of her weakness. - Patient Problems (1) Fall Current Visit: Yes Status: Acute Comment: Likely due to weakness from UTI. PT eval apprecaited. Will discharge back to [facility] when able. No syncope reported. No further cardiac workup indicated. (2) UTI (urinary tract infection) Current Visit: Yes Status: Acute Comment: Grossly positive UA. Treat with Ceftriaxone. Likely cause of weakness. With associated bacteremia due to E coli. Should continue IV antibiotics for 48hrs after last fever which was 0500 on 06/30. (3) Rheumatoid arthritis Current Visit: No Status: Acute Code(s): M06.9 - RHEUMATOID ARTHRITIS, UNSPECIFIED SNOMED Code(s): 42621256 Comment: On prednisone 20mg at home daily. Significant deformity. CRP significantly increased. Consider steroid sparing agent outpatient. (4) Dementia Current Visit: No Status: Acute Code(s): F03.90 - UNSPECIFIED DEMENTIA WITHOUT BEHAVIORAL DISTURBANCE SNOMED Code(s): 40784063 Comment: Continue aricept. Recent worsening with negative workup. Likely due to UTI. Discussed with outpatient provider at [facility]. (5) Depression Current Visit: No Status: Acute Code(s): F32.9 - MAJOR DEPRESSIVE DISORDER, SINGLE EPISODE, UNSPECIFIED SNOMED Code(s): 76798419 Comment: Euthymic, Continue Cymbalta, Wellbutrin, Buspar. Has tardive dyskinesia from Risperdone. Will hold in hospital. (6) CKD (chronic kidney disease) Current Visit: Yes Status: Acute Code(s): N18.9 - CHRONIC KIDNEY DISEASE, UNSPECIFIED SNOMED Code(s): 211902054 Comment: Stage III. At baseline. Control BP and DM. (7) Nausea & vomiting Current Visit: No Status: Acute Code(s): R11.2 - NAUSEA WITH VOMITING, UNSPECIFIED SNOMED Code(s): 65464894 Comment: Chronic Nausea, Continue zofran. (8) DVT prophylaxis Current Visit: No Status: Acute Code(s): EEU9923 - SNOMED Code(s): 945513804 (9) Full code status Current Visit: No Status: Acute Code(s): Z78.9 - OTHER SPECIFIED HEALTH STATUS SNOMED Code(s): 423393039 Status and Disposition: Discharge back to when medically able.
[2017-07-01] MEDS: Atorvastatin* 10 MG TAB PO SCH (18:02)
[2017-07-01] MEDS: Ondansetron ODT TAB* 4 MG SL PRN (18:02)
[2017-07-01] MEDS: Docusate CAP* 100 MG PO SCH (20:26)
[2017-07-01] MEDS: Donepezil TAB* 5 MG PO SCH (20:26)
[2017-07-01] MEDS: Senna TAB PO SCH (20:26)
[2017-07-01] MEDS: DULoxetine DR CAP* 60 MG CAP.DR PO SCH (20:26)
[2017-07-01] MEDS: CMCS: Melatonin (NF) 3 MG TAB PO SCH (20:27)
[2017-07-02] MEDS: Albuterol/Ipratropium NEB.SOL* Albuterol 2.5 MG/Ipratropium 0.5 MG 3 ML INH SCH ×2 (01:43→07:53)
[2017-07-02] MEDS: Ondansetron ODT TAB* 4 MG SL PRN (04:16)
[2017-07-02] MEDS: Heparin VIAL(*) 5000 UNITS/ML VIAL (FIVE THOUSAND) SUBCUT SCH ×3 (05:19→21:36)
[2017-07-02] MEDS: cefTRIAXone(*) 1 GM in NS 0.9% 50 ML* 50 ML IVPB SCH (05:19)
[2017-07-02] MEDS: oxyCODONE TAB* 5 MG TAB PO PRN ×3 (05:37→21:35)
[2017-07-02] MEDS: Acetaminophen TAB* 325 MG PO PRN (05:37)
[2017-07-02 06:28] LABS: ABS Basophils 0.1 10^3/ul (0-0.2); ABS Eosinophils 0.1 10^3/ul (0-0.6); ABS Lymphocytes 1.5 10^3/ul (1.0-4.8); ABS Neutrophils 5.7 10^3/ul (1.5-7.7); ABS Nucleated RBC 0 10^3/ul; Eosinophil % 1.7 % (0-6); Hematocrit 35 % (35-47); Hemoglobin 12.2 g/dl (12.0-16.0); Lymphocyte % 17.5 % (25-47); Mean Corpuscular HGB Conc 35 g/dl (31-36); Mean Corpuscular Hemoglobin 31 pg (27-31); Mean Corpuscular Volume 91 fL (80-97); Mean Platelet Volume 7.5 um3 (7.4-10.4); Nucleated Red Blood Cells % 0.1; Platelet Count 250 10^3/ul (150-450); Red Cell Distribution Width 14 % (10.5-15); White Blood Count 8.4 10^3/ul (3.5-10.8)
[2017-07-02] MEDS: Mometasone/Formoter 200/5 MDI INH SCH ×2 (07:25→19:46)
[2017-07-02] MEDS: Umeclidin 62.5 MDI(NF) 1 INH MDI INH SCH (07:31)
[2017-07-02] MEDS ORDERED: LORazepam INJ* 2 MG/ML 1 ML VIAL IV PUSH ONE (08:38)
[2017-07-02] MEDS: buPROPion SR TAB.SR* 100 MG PO SCH ×2 (09:06→21:36)
[2017-07-02] MEDS: Famotidine TAB* 20 MG PO SCH ×2 (09:06→21:35)
[2017-07-02] MEDS: Memantine TAB* 5 MG PO SCH (09:06)
[2017-07-02] MEDS: predniSONE TAB* 20 MG PO SCH (09:07)
[2017-07-02] MEDS: Dicyclomine CAP* 10 MG PO SCH ×2 (09:07→21:35)
[2017-07-02] MEDS: busPIRone TAB* 5 MG PO SCH ×3 (09:07→21:35)
--- NOTE | 2017-07-02 15:30 | PN ---
Subjective Date of Service: 07/02/17 Interval History: Patient was seen and examined at bedside. Reports feeling "OK", denies any pain , fever or chills. Reports some SOB this AM after her neb treatment, thinks she was anxious, but no more SOB now. Denies chest pain, palpitations, headaches, flank or back pain. Her blood cultures revealed E.coli in 1/4 bottles, sensitive to cephalosporins. Patient also wants her dentures from shelter, tolerating soft diet. She has no other c/o today. Family History: Unchanged from Admission Social History: Unchanged from Admission Past Medical History: Unchanged from Admission Objective Active Medications: Acetaminophen (Tylenol Tab*) 650 mg PO Q4H PRN PRN Reason: FEVER/PAIN Last Admin: 07/02/17 05:37 Dose: 650 mg Albuterol (Ventolin 2.5 Mg/3 Ml Neb.Stephanie*) 2.5 mg INH Q2H PRN PRN Reason: SOB/WHEEZING Last Admin: 07/02/17 07:28 Dose: 2.5 mg Atorvastatin Calcium (Lipitor*) 10 mg PO QPM [facility] Last Admin: 07/01/17 18:02 Dose: 10 mg Bupropion HCl (Wellbutrin Sr Tab*) 200 mg PO BID [facility] Last Admin: 07/02/17 09:06 Dose: 200 mg Buspirone HCl (Buspar Tab*) 5 mg PO TID [facility] Last Admin: 07/02/17 14:09 Dose: 5 mg Dicyclomine HCl (Bentyl Cap*) 10 mg PO BID [facility] Last Admin: 07/02/17 09:07 Dose: 10 mg Docusate Sodium (Colace Cap*) 100 mg PO BEDTIME [facility] Last Admin: 07/01/17 20:26 Dose: 100 mg Donepezil HCl (Aricept Tab*) 10 mg PO BEDTIME [facility] Last Admin: 07/01/17 20:26 Dose: 10 mg Duloxetine HCl (Cymbalta Cap*) 60 mg PO BEDTIME [facility] Last Admin: 07/01/17 20:26 Dose: 60 mg Famotidine (Pepcid Tab*) 10 mg PO BID [facility] PRN Reason: Protocol Last Admin: 07/02/17 09:06 Dose: 10 mg Heparin Sodium (Porcine) (Heparin Vial(*)) 5,000 units SUBCUT Q8HR [facility] Last Admin: 07/02/17 14:09 Dose: 5,000 units Ceftriaxone Sodium 1 gm/ (Sodium Chloride) 50 mls @ 200 mls/hr IVPB Q24H [facility] Last Admin: 07/02/17 05:19 Dose: 200 mls/hr Lorazepam (Ativan Inj*) 0.5 mg IV PUSH Q6H PRN PRN Reason: ANXIETY Melatonin (Melatonin (Nf)) 3 mg PO BEDTIME [facility] Last Admin: 07/01/17 20:27 Dose: 3 mg Memantine (Namenda Tab*) 5 mg PO DAILY [facility] Last Admin: 07/02/17 09:06 Dose: 5 mg Mometasone Furoate/Formoterol Fumar (Dulera 200/5 Mdi*) 2 puff INH BID [facility] PRN Reason: Protocol Last Admin: 07/02/17 07:25 Dose: 2 puff Ondansetron HCl (Zofran Odt Tab*) 4 mg SL Q6H PRN PRN Reason: NAUSEA/VOMITING Last Admin: 07/02/17 04:16 Dose: 4 mg Oxycodone HCl (Roxycodone Tab*) 10 mg PO Q8HR PRN PRN Reason: PAIN Last Admin: 07/02/17 14:09 Dose: 10 mg Prednisone (Deltasone Tab*) 20 mg PO DAILY [facility] Last Admin: 07/02/17 09:07 Dose: 20 mg Senna (Senokot Tab*) 1 tab PO BEDTIME [facility] Last Admin: 07/01/17 20:26 Dose: 1 tab Umeclidinium Bannister (Incruse Ellipta Mdi (Nf)) 1 inh INH QAM [facility] Last Admin: 07/02/17 07:31 Dose: Not Given Vital Signs - 8 hr 07/02/17 07/02/17 07/02/17 07:30 08:30 09:05 Temperature Pulse Rate 83 Respiratory 15 16 16 Rate Blood Pressure (mmHg) O2 Sat by Pulse 93 Oximetry 07/02/17 07/02/17 07/02/17 09:07 09:10 11:08 Temperature Pulse Rate Respiratory 16 16 16 Rate Blood Pressure (mmHg) O2 Sat by Pulse Oximetry 07/02/17 07/02/17 11:20 14:09 Temperature 98.4 F Pulse Rate 80 Respiratory 16 16 Rate Blood Pressure 141/59 (mmHg) O2 Sat by Pulse 96 Oximetry Oxygen Devices in Use Now: None Appearance: Sitting on her chair, breathing with ease, appears comfortable and in NAD. Visible lip smaking and other signs of tardive dyskinesia noted. Eyes: No Scleral Icterus, PERRLA Ears/Nose/Mouth/Throat: Clear Oropharnyx, Mucous Membranes Moist Neck: NL Appearance and Movements; NL JVP, Trachea Midline Respiratory: Symmetrical Chest Expansion and Respiratory Effort, Clear to Auscultation Cardiovascular: NL Sounds; No Murmurs; No JVD, RRR Abdominal: NL Sounds; No Tenderness; No Distention Lymphatic: No Cervical Adenopathy Extremities: No Edema, No Clubbing, Cyanosis Skin: No Rash or Ulcers Neurological: Alert and Oriented x 3, NL Sensation, NL Muscle Strength and Tone Nutrition: Taking PO's Result Diagrams: 07/02/17 05:51 07/02/17 05:51 Additional Lab and Data: . Microbiology and Other Data: Microbiology 06/30/17 06:15 Nasal Screen MRSA (PCR)(ANGELIKA) - Final Nasal Mrsa Not Detected 06/30/17 06:15 Influenza Types A,B Antigen (ANGELIKA) - Final Nasopharyngeal Specimen received for Influenza A/B Molecular testing RUN DATE: 07/02/17 [facility] LAB LIVE PAGE 1 RUN TIME: [address] [place] [address] Specimen Inquiry Name: JORGE LUIS CHIN : [address]: Jumana Jaimes MD Acct: [id number] Unit: [id number] AGE: 71 Location: [place] [address] Re07/01/17 SEX: F Status: ADM IN SPEC: [id number] VERONICA: 06/30/17-[address]: Marcelino YEE REQ: [id number] RECD: 06/30/17 STATUS: RES OTHR DR: Angel Rose MD _ No Primary Care Phys,NOPCP SOURCE: BLOOD,VENO SPDESC: ORDERED: Blood Cult COMMENTS: Patient is On Antibiotics? NO Verbal to [id number] by [id number] at 1901 on 06/30/17. Results read back accurately. Procedure Result Reported Site Aerobic Culture Bottle Final 07/02/17- 820 ML Aerobic Bottle Gram Stain Gram Negative Bacilli Organism 1 ESCHERICHIA COLI 1. ESCHERICHIA COLI M.I.C. RX Ampicillin 4 S Cefazolin <=4 S Cefepime <=1 S Ceftriaxone <=1 S Ciprofloxacin >=4 R Gentamicin <=1 S Levofloxacin >=8 R Meropenem <=0.25 S Tetracycline >=16 R Pipercillin/Tazobactam <=4 S Trimethoprim/Sulfamethoxazole <=20 S Amoxicillin/Clavulanic Acid <=2 S Aztreonam <=1 S Contact the Microbiology Department for any additional antibiotic reporting. Diagnostic Imaging: . EKG Data: . Assess/Plan/Problems-Billing Assessment: Patient is a 71yo female with a PMH for RA, Dementia, Depression, who is here with a fall and was found to have a UTI which is the likely cause of her weakness. - Patient Problems (1) Fall Current Visit: Yes Status: Acute Comment: Likely due to weakness from UTI. PT eval apprecaited. Will discharge back to [facility] when able. No syncope reported. No further cardiac workup indicated. Urine and blood cultures/sensitivities reviewed, continue Rocephen (2) UTI (urinary tract infection) Current Visit: Yes Status: Acute Comment: Grossly positive UA. Treat with Ceftriaxone. Likely cause of weakness. With associated bacteremia due to E coli. Should continue IV antibiotics for 48hrs after last fever which was 0500 on 06/30. Remains afebrile on 07/02 PM, likely back to [facility] tomorrow (3) CKD (chronic kidney disease) Current Visit: No Status: Chronic Comment: Stage III. At baseline. Control BP and DM. (4) Dementia Current Visit: No Status: Chronic Comment: Continue aricept. Recent worsening with negative workup. Likely due to UTI. Discussed with outpatient provider at [facility]. (5) Depression Current Visit: No Status: Chronic Comment: Euthymic, Continue Cymbalta, Wellbutrin, Buspar. Has tardive dyskinesia from Risperdone. Will hold in hospital. (6) Rheumatoid arthritis Current Visit: No Status: Chronic Comment: On prednisone 20mg at home daily. Significant deformity. CRP significantly increased. Consider steroid sparing agent outpatient. (7) DVT prophylaxis Current Visit: No Status: Acute Comment: subQ Heparin (8) Full code status Current Visit: No Status: Acute Status and Disposition: Discharge back to when medically able, likely in 1-2 days.
[2017-07-02] MEDS: Atorvastatin* 10 MG TAB PO SCH (19:47)
[2017-07-02] MEDS: Donepezil TAB* 5 MG PO SCH (21:35)
[2017-07-02] MEDS: Docusate CAP* 100 MG PO SCH (21:35)
[2017-07-02] MEDS: CMCS: Melatonin (NF) 3 MG TAB PO SCH (21:35)
[2017-07-02] MEDS: Senna TAB PO SCH (21:35)
[2017-07-02] MEDS: DULoxetine DR CAP* 60 MG CAP.DR PO SCH (21:35)
[2017-07-02] MEDS: LORazepam INJ* 2 MG/ML 1 ML VIAL IV PUSH PRN (21:36)
[2017-07-03] MEDS: cefTRIAXone(*) 1 GM in NS 0.9% 50 ML* 50 ML IVPB SCH (04:50)
[2017-07-03] MEDS: Heparin VIAL(*) 5000 UNITS/ML VIAL (FIVE THOUSAND) SUBCUT SCH (04:50)
[2017-07-03] MEDS: oxyCODONE TAB* 5 MG TAB PO PRN ×2 (04:50→12:53)
[2017-07-03] MEDS: Mometasone/Formoter 200/5 MDI INH SCH (08:25)
[2017-07-03] MEDS: Umeclidin 62.5 MDI(NF) 1 INH MDI INH SCH (08:26)
[2017-07-03] MEDS: Famotidine TAB* 20 MG PO SCH (10:11)
[2017-07-03] MEDS: Memantine TAB* 5 MG PO SCH (10:12)
[2017-07-03] MEDS: Dicyclomine CAP* 10 MG PO SCH (10:13)
[2017-07-03] MEDS: buPROPion SR TAB.SR* 100 MG PO SCH (10:13)
[2017-07-03] MEDS: predniSONE TAB* 20 MG PO SCH (10:14)
[2017-07-03] MEDS: busPIRone TAB* 5 MG PO SCH (10:14)
[2017-07-03] MEDS: Ondansetron ODT TAB* 4 MG SL PRN (11:28)
[2017-07-03] MEDS: LORazepam INJ* 2 MG/ML 1 ML VIAL IV PUSH PRN (11:32)
[2017-07-03 11:50] VITALS: BP 142/64
--- NOTE | 2017-07-03 13:51 | DS ---
AMENDED REPORT NOW INCLUDES COSIGNER DESIGNATION - ESIGNED BEFORE ADJUSTMENTS DISCHARGE SUMMARY: DATE OF ADMISSION: 06/30/17 DATE OF DISCHARGE: 07/03/17 PATIENT OF: Dr. Ann Condon. ATTENDING HOSPITALIST WHILE PATIENT IN HOSPITAL: Felix Matos MD.* ( DICTATED BY NAKIA PALOMARES) ADMISSION DIAGNOSES: 1. Fall. 2. Dysuria. 3. Cough. 4. History of rheumatoid arthritis. 5. Depression. 6. Dementia. 7. COPD, which has been oxygen dependent at the [facility]. 8. IBS. 9. GERD. DISCHARGE DIAGNOSES: 1. Fall. 2. Dysuria. 3. Cough. 4. History of rheumatoid arthritis. 5. Depression. 6. Dementia. 7. COPD which has been oxygen dependent at the [facility]. 8. IBS. 9. GERD. 10. Urinary tract infection and bacteremia. ADMITTING PHYSICIAN: Ann Condon MD. CONSULTATIONS: None. PROCEDURES: None. BRIEF MEDICAL HISTORY: Melida is a 71-year-old female who is well known to us from prior admissions, who presented to the emergency room on 06/30/17 with complaints of fall and dysuria. Patient is a very poor historian with known history of dementia and apparently she presented to the emergency room from her residence at [facility] after she sustained a fall. She states that she slipped and hit the front of her face and called out for help. She went to the emergency room for further evaluation because it was noted that she had a laceration to her face, particularly to her upper lip. Patient does not give a clear history if she did have loss of consciousness or not. She admits to having some dysuria and urinary frequency. She was evaluated in the emergency room and was found to have a white count of 14,000, and urinalysis that was consistent with urinary tract infection with 2+ leuk esterase as well as positive urine nitrites. She had a head CT that revealed no evidence of acute brain hemorrhage or any other abnormalities. She also had a chest x-ray that did not show any infiltrates or effusions. Her EKG upon admission showed normal sinus rhythm without any ST elevations or T wave inversions. Given her frail conditions and her recent history of fall, patient was admitted under hospitalist services for further evaluation. HOSPITAL COURSE: Patient was admitted to the third floor in short stay unit under hospitalist medicine. She reports feeling lousy for the first couple of days after her admission, most likely due to dysuria, but she could not elaborate more about if she is having chest pain or any other associated symptoms. She had laboratory workup that revealed resolution of her leukocytosis after the third day of admission. Her hemoglobin and hematocrit continued to be stable. Her urinalysis was sent and initial cultures grew E. coli that was sensitive to all antibiotics roughly with the exception of quinolones. She also had a blood culture with 1 bottle out of 4 returning with E. coli bacteremia. Patient remained stable and her vitals were taken on a regular basis. She remained afebrile with maximum temperature of 100.1 upon admission and 98.1 upon discharge. She continued to improve on a daily basis and was ambulatory out of bed to her chair. Her intakes and outputs were measured daily and patient continued to void with no difficulties. She was started on Rocephin that she tolerated well despite the fact that she was allergic to amoxicillin in the past and showed no evidence of any hives or adverse reactions. She continued to improve on a daily basis and on discharge day, her physical exam was essentially unremarkable. Her chest was normal to inspection and her lungs were clear to auscultation. Heart was regular rate and rhythm, with no murmurs or gallops noted. Abdomen was soft, nontender, and nondistended without hernias, masses or hepatosplenomegaly. Her mucous membrane was moist. We discussed with her discharging back to [facility], and we will resume all her medication and we will continue cephalosporin coverage in the form of oral Keflex twice daily for the next 5 days. DISCHARGE MEDICATIONS: Her discharge medications include: 1. Tylenol 1000 mg p.o. q.8 hours as needed for pain. 2. Albuterol/ipratropium nebulizer 1 nebulizer inhaled q.6 hours. 3. Lipitor 10 mg p.o. daily. 4. Symbicort MDI 2 puffs inhaled b.i.d. 5. 200 mg p.o. b.i.d. 6. BuSpar 5 mg p.o. t.i.d. 7. Calcium carbonate and multivitamin 1 tablet q.48 hours. 8. Keflex 500 mg p.o. b.i.d. x5 days. 9. Vitamin D3 5000 units p.o. daily. 10. Cyclosporin ophthalmic solution 0.05% 1 drop in both eyes once daily. 11. Prolia 60 mg subcu q.6 months. 12. Dextran 1 drop in each eye once daily. 13. Bentyl 10 mg p.o. b.i.d. 14. Aricept 10 mg p.o. q.h.s. 15. Cymbalta 60 mg 1 tablet p.o. q.h.s. 16. Fluticasone nasal spray 50 micrograms 1 spray in both nostrils once daily. 17. Folic acid 1 mg p.o. daily. 18. Mag hydroxide 30 mL p.o. q.4 hours as needed for heartburn. 19. Melatonin 2 mg p.o. q.h.s. 20. Memantine 5 mg p.o. daily. 21. Sheldon-3 fatty acid, fish oil 1000 mg p.o. daily. 22. Zofran 4 mg 1 tablet q.6 hours as needed for nausea. 23. Roxicodone 10 mg p.o. q.8 hours as needed for pain. 24. Deltasone 20 mg p.o. daily. 25. Zantac 75 mg p.o. b.i.d. 26. Risperdal 0.25 mg p.o. daily. 27. Ellipta 62.5 micrograms injection q.a.m. PROBLEM LIST: 1. Fall, suspected probably secondary to weakness related to her recent urinary tract infection. All her workup and differential diagnoses was ruled out including a syncopal episode or CVA event. She is ambulatory and will get physical therapy evaluation and patient is stable to return to her residence at [facility]. 2. Urinary tract infection, has been treated with Rocephin that is sensitive to her E. coli that grew on urine culture and we will continue cephalosporin coverage for the next few days in an oral form. 3. Rheumatoid arthritis. She will continue her steroids and follow up with primary care if needed. 4. Dementia. Patient will continue her Aricept. 5. COPD. Patient will continue her inhalers as prescribed and she will return to [facility] today and follow up with primary care as needed. NAKIA PALOMARES [id number]/[facility] #: [id number] H[facility]PITAL[facility]
== END 2017-07-03 13:05 | DRG 690 ==
LOC: ED 01:08 → SSU 04:05 → OBSVTOIN 07-01 07:45
PROVIDERS: ADMIT Pediatrics; ATTEND Internal Medicine
PROC: 0CQ0XZZ Repair Upper Lip, External Approach (ICD-10-PCS; principal; 2017-07-01)
DX: N39.0 Urinary tract infection, site not specified (principal); R78.81 Bacteremia; S01.511A Laceration without foreign body of lip, initial encounter; W01.0XXA Fall on same level from slipping, tripping and stumbling without subsequent striking against object, initial encounter; M06.9 Rheumatoid arthritis, unspecified; F32.9 Major depressive disorder, single episode, unspecified; J44.9 Chronic obstructive pulmonary disease, unspecified; K58.9 Irritable bowel syndrome, unspecified; K21.9 Gastro-esophageal reflux disease without esophagitis; H91.90 Unspecified hearing loss, unspecified ear; F41.9 Anxiety disorder, unspecified; F03.90 Unspecified dementia, unspecified severity, without behavioral disturbance, psychotic disturbance, mood disturbance, and anxiety; Z96.653 Presence of artificial knee joint, bilateral; Y92.122 Bedroom in nursing home as the place of occurrence of the external cause; Z99.81 Dependence on supplemental oxygen; Z88.1 Allergy status to other antibiotic agents; Z88.2 Allergy status to sulfonamides; Z82.49 Family history of ischemic heart disease and other diseases of the circulatory system; Z82.0 Family history of epilepsy and other diseases of the nervous system; Z87.891 Personal history of nicotine dependence; Z90.710 Acquired absence of both cervix and uterus; I34.1 Nonrheumatic mitral (valve) prolapse; R40.2362 Coma scale, best motor response, obeys commands, at arrival to emergency department; R40.2142 Coma scale, eyes open, spontaneous, at arrival to emergency department; R40.2242 Coma scale, best verbal response, confused conversation, at arrival to emergency department; K59.00 Constipation, unspecified; R11.2 Nausea with vomiting, unspecified; N18.9 Chronic kidney disease, unspecified; B96.20 Unspecified Escherichia coli [E. coli] as the cause of diseases classified elsewhere
CPT/HCPCS: 36415; 70450; 71045; 73523; 80048; 80053; 81003; 81015; 82306; 82607; 83036; 83735; 84443; 85025; 86140; 87040; 87077; 87086; 87186; 87205; 87502; 87641; 93005; 94640; 99283; A9270-GY; G8978-GP-CJ; G8979-GP-CI; J0696; J1644; J2060; J7512

== ENCOUNTER 2017-10-10 18:38 | Emergency (ER) | payer MEDICARE, OTHER ==
--- NOTE | 2017-10-10 19:15 | ED ---
Adult Trauma - HPI Summary HPI Summary: 71 female presents with fall today. She states she had a mechanical fall where fell backwards. c/o headache, neck pain, back pain, and left arm pain. She states the pain is greatest in left humerus. She denies any numbness or tingling. No weakness. She is right-handed. No chest pain. No shortness breath. No bowel pain. the fall was a mechanical fall. She denies any lower extremity pain. No hip pain. No other injury. She denies any pain in her right arm. She is not on blood thinners. No loss conscious. No nausea or vomiting. Per daughter she has been falling a lot. - History of Current Complaint Chief Complaint: EDGeneral Stated Complaint: FALL Time Seen by Provider: 10/10/17 18:49 Pain Intensity: 0 - Additional Pertinent History Primary Care Physician: [id number] - Allergy/Home Medications Allergies/Adverse Reactions: Allergies Allergy/AdvReac Type Severity Reaction Status Date / Time amoxicillin Allergy GI Upset Verified 10/10/17 18:48 clavulanic acid Allergy GI Upset Verified 10/10/17 18:48 [From Augmentin] niacin Allergy Unknown Verified 10/10/17 18:48 Reaction Details Sulfa (Sulfonamide Allergy GI Upset Verified 10/10/17 18:48 Antibiotics) Home Medications: Home Medications Ipratropium 0.5MG/2.5ML NEB* [Atrovent 0.5 MG NEB.RAY*] 0.5 mg INH Q6H PRN 10/10 [History Confirmed 10/10/17] Umeclidinium [place] [Incruse Ellipta] 1 puff INH DAILY 10/10/17 [History Confirmed 10/10/17] predniSONE TAB* [Deltasone 20 MG TAB*] 20 mg PO DAILY 10/10/17 [History Confirmed 10/10/17] PMH/Surg Hx/FS Hx/Imm Hx Endocrine/Hematology History: Denies: Hx Anticoagulant Therapy, Hx Diabetes Cardiovascular History: Reports: Other Cardiovascular Problems/Disorders - Mitral valve prolapse Denies: Hx Congestive Heart Failure, Hx Hypertension Respiratory History: Reports: Hx Chronic Obstructive Pulmonary Disease (COPD) GI History: Reports: Hx Gastroesophageal Reflux Disease, Hx Irritable Bowel History: Denies: Hx Renal Disease Musculoskeletal History: Reports: Hx Arthritis, Hx Rheumatoid Arthritis, Hx Orthopedic Injury - hands fx repairs, Hx Osteoporosis Sensory History: Reports: Hx Contacts or Glasses, Hx Macular Degeneration, Hx Hearing Problem - hard hearing Denies: Hx Hearing Aid Opthamlomology History: Reports: Hx Contacts or Glasses, Hx Macular Degeneration Neurological History: Reports: Hx Dementia Psychiatric History: Reports: Hx Anxiety, Hx Depression - Surgical History Surgery Procedure, Year, and Place: hysterectomy, tonsillectomy, knee replacement, bilat hand fx repairs. Infectious Disease History: No Infectious Disease History: Denies: Traveled Outside the [place] in Last 30 Days - Family History Known Family History: Positive: Cardiac Disease, Other - CA Negative: Diabetes - Social History Alcohol Use: None Substance Use Type: Reports: None Smoking Status (MU): Former Smoker Review of Systems Negative: Fever Negative: Chest Pain Negative: Shortness Of Breath Positive: Myalgia - left arm pain, neck pain and back pain Positive: Headache All Other Systems Reviewed And Are Negative: Yes Physical Exam Triage Information Reviewed: Yes Vital Signs On Initial Exam: Initial Vitals Temp Pulse Resp BP Pulse Ox 98.5 F 93 18 106/71 95 10/10/17 18:45 10/10/17 18:45 10/10/17 18:45 10/10/17 18:45 10/10/17 18:45 Vital Signs Reviewed: Yes Appearance: Positive: Well-Appearing Skin: Positive: Warm, Dry Head/Face: Positive: Other - contusion to posterior aspect of head, no step off , racoon eyes, murray sign Eyes: Positive: Normal, EOMI, KENNY, Conjunctiva Clear ENT: Positive: Normal ENT inspection, Pharynx normal, TMs normal Respiratory/Lung Sounds: Positive: Clear to Auscultation, Breath Sounds Present Cardiovascular: Positive: Normal, RRR Abdomen Description: Positive: Nontender, Soft Bowel Sounds: Positive: Present Musculoskeletal: Positive: Other - tenderness lower back and neck, full ROM neck , tenderness left humurus and forearm, no deformity noted, good pulses, sensation grossly intact. chronic deformity to left hand Neurological: Positive: Sensory/Motor Intact, Alert, Oriented to Person Place, Time, CN Intact II-III Psychiatric: Positive: Normal - Larsen Coma Scale Best Eye Response: 4 - Spontaneous Best Motor Response: 6 - Obeys Commands Best Verbal Response: 5 - Oriented Coma Scale Total: 15 Diagnostics - Vital Signs Vital Signs Temp Pulse Resp BP Pulse Ox 10/10/17 18:45 98.5 F 93 18 106/71 95 - Laboratory Lab Statement: Any lab studies that have been ordered have been reviewed, and results considered in the medical decision making process. - Radiology neck Xray Interpretation: No Acute Changes Radiology Interpretation Completed By: Radiologist humerus Xray Interpretation: Positive (See Comments) - proximal humerus fracture Radiology Interpretation Completed By: ED Physician - CT brain CT Interpretation: No Acute Changes CT Interpretation Completed By: Radiologist neck 1 CT Interpretation: Positive (See Comments) - THERE IS CORTICAL IRREGULARITY AT THE BASE OF THE ODONTOID PROCESS. THIS APPEARS TO BE SECONDARY TO MOTION ARTIFACT, THOUGH ATTACHMENT ODONTOID FRACTURE MAY GIVE A SIMILAR APPEARANCE. RECOMMEND CONSIDERATION OF REPEAT IMAGING WITH REPEAT CT OR PLAIN FILM EXAMINATION OF THE CERVICAL SPINE. OSTEOPENIA. DEGENERATIVE DISC DISEASE AND OSTEOARTHRITIS. CT Interpretation Completed By: Radiologist lumbar CT Interpretation: No Acute Changes - THERE IS CORTICAL IRREGULARITY AT THE BASE OF THE ODONTOID PROCESS. THIS APPEARS TO BE SECONDARY TO MOTION ARTIFACT, THOUGH ATTACHMENT ODONTOID FRACTURE MAY GIVE A SIMILAR APPEARANCE. RECOMMEND CONSIDERATION OF REPEAT IMAGING WITH REPEAT CT OR PLAIN FILM EXAMINATION OF THE CERVICAL SPINE. OSTEOPENIA. DEGENERATIVE DISC DISEASE AND OSTEOARTHRITIS. CT Interpretation Completed By: Radiologist neck 2 CT Interpretation: No Acute Changes CT Interpretation Completed By: Radiologist Adult Trauma Course/Dx - Course Course Of Treatment: 71 female presents with fall today. She states she had a mechanical fall where fell backwards. c/o headache, neck pain, back pain, and left arm pain. She states the pain is greatest in left humerus. She denies any numbness or tingling. No weakness. She is right-handed. No chest pain. No shortness breath. No bowel pain. the fall was a mechanical fall. She denies any lower extremity pain. No hip pain. No other injury. She denies any pain in her right arm. She is not on blood thinners. No loss conscious. No nausea or vomiting. Per daughter she has been falling a lot. On exam has normal neuro exam. Has contusion noted posterior head. Abdomen minimal tenderness neck. Tenderness over left humeral head. Neurovascularly intact. Tenderness lower back. Nontender abdomen. CT brain normal. CT neck shows positional artifact versus odontoid fracture. Neck x-ray normal. Discuss case with Dr. olivas said to repeat a CT. Repeat CT is negative. CT lumbar normal. humerus xray read by me and Dr. Patten as proximal humerus fracture. Place in sling. will have follow-up with orthopedic. Patient understands agrees with plan. - Diagnoses Differential Diagnosis/HQI/PQRI: Positive: Abrasion(s), Contusion(s), Fracture Provider Diagnoses: Fall, Neck pain, Head injury, Lumbar back pain, Humerus fracture Discharge - Sign-Out/Discharge Documenting (check all that apply): Patient Departure - Discharge Plan Condition: Good Disposition: HOME Patient Education Materials: Head Injury (ED), Proximal Humerus Fracture (ED) Referrals: Beata Maldonado DO [Primary Care Provider] - Additional Instructions: you appear to have a humerus fracture keep in sling take Tylenol every 6 hours as need for pain place ice on area follow up with ortho Return to ED if develop any new or worsening symptoms - Billing Disposition and Condition Condition: GOOD Disposition: Home
--- NOTE | 2017-10-10 19:29 | RAD ---
HISTORY: fall, head injury COMPARISONS: June 30, 2017 TECHNIQUE: Multiple contiguous axial CT scans were obtained of the head without intravenous contrast. FINDINGS: HEMORRHAGE/INFARCT: There is no hemorrhage or acute infarct. MASSES/SHIFT: There is no mass or shift. EXTRA-AXIAL SPACES: There are no extra-axial fluid collections. SULCI AND VENTRICLES: The sulci and ventricles are normal in size and position for the patient's stated age. CEREBRUM: There is hypoattenuation of the periventricular and subcortical white matter. BRAINSTEM: There are no focal parenchymal abnormalities. CEREBELLUM: There are no focal parenchymal abnormalities. VESSELS: The vessels are grossly normal. PARANASAL SINUSES: The paranasal sinuses are clear. ORBITS: The orbits are unremarkable. BONES AND SOFT TISSUE: No bone or soft tissue abnormalities are noted. OTHER: None IMPRESSION: NO ACUTE INTRACRANIAL PATHOLOGY.
--- NOTE | 2017-10-10 19:33 | RAD ---
HISTORY: fall, head injury COMPARISONS: None relevant TECHNIQUE: Multiple contiguous axial CT scans were obtained of the cervical spine without intravenous contrast, with coronal and sagittal multiplanar reformations. FINDINGS: The study is limited by patient motion artifact. BRAIN: The visualized brain is unremarkable CENTRAL CANAL: Evaluation of the central canal is limited on CT technique; however, there is no obvious canalicular mass or epidural hemorrhage. ALIGNMENT: The alignment is normal, without subluxation or dislocation. VERTEBRAL BODIES: There is cortical regularity of the base of the odontoid process. This is likely secondary to motion artifact, though a type II fracture may give a similar appearance. 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 There is diffuse osteopenia. JOINTS: There is uncovertebral and facet hypertrophy. MUSCULATURE: Unremarkable INTERVERTEBRAL DISCS: There is diffuse loss of intervertebral disc height. AXIAL IMAGES: There is moderate to severe bilateral neuroforaminal narrowing at C4-C5 and C5-C6. There is no osseous central canal stenosis. SOFT TISSUES: The visualized soft tissues of the neck are unremarkable. The prevertebral fat stripe is preserved. OTHER: None. IMPRESSION: THERE IS CORTICAL IRREGULARITY AT THE BASE OF THE ODONTOID PROCESS. THIS APPEARS TO BE SECONDARY TO MOTION ARTIFACT, THOUGH ATTACHMENT ODONTOID FRACTURE MAY GIVE A SIMILAR APPEARANCE. RECOMMEND CONSIDERATION OF REPEAT IMAGING WITH REPEAT CT OR PLAIN FILM EXAMINATION OF THE CERVICAL SPINE. OSTEOPENIA. DEGENERATIVE DISC DISEASE AND OSTEOARTHRITIS. PRELIMINARY FINDINGS WERE DISCUSSED WITH CLEO ABBASI IN THE EMERGENCY DEPARTMENT AT APPROXIMATELY 7:29 PM ON OCTOBER 10, 2017.
--- NOTE | 2017-10-10 19:37 | RAD ---
HISTORY: lower back pain, COMPARISONS: CT of the abdomen and pelvis dated June 11, 2017 TECHNIQUE: Multiple contiguous axial CT scans were obtained of the lumbar spine without intravenous contrast, with coronal and sagittal multiplanar reformations. FINDINGS: SPINAL CANAL: Evaluation of the central canal is limited on CT technique; however, there is no obvious canalicular mass or epidural hemorrhage. ALIGNMENT: There is a levoscoliotic curvature of the spine. There is grade 1 anterolisthesis of L4 on L5. VERTEBRAL BODIES: There is diffuse osteopenia. There is a hemangioma of T11. There is no displaced fracture. JOINTS: There is diffuse facet osteoarthritis. MUSCULATURE: Unremarkable INTERVERTEBRAL DISCS: There is diffuse loss of intervertebral disc height throughout the spine. AXIAL IMAGES: T11-T12: There is no osseous neural foraminal narrowing or central canal stenosis. T12-L1: There is no osseous neural foraminal narrowing or central canal stenosis. L1-L2: There is bilateral marginal osteophyte formation at the neural foramina.. There is severe right and mild left neuroforaminal narrowing. There is no osseous central canal stenosis. L2-L3: There is bilateral facet hypertrophy with marginal osteophyte formation at the neural foramina bilaterally. There is moderate right and mild left neuroforaminal narrowing. There is no osseous central canal stenosis. L3-L4: There is a broad-based disc bulge with ligamentous and facet hypertrophy. There is moderate bilateral neuroforaminal narrowing. There is moderate narrowing of the central canal. L4-L5: There is broad-based disc bulge with facet and ligamentous hypertrophy. There is moderate bilateral neuroforaminal narrowing. There is severe narrowing of the central canal. L5-S1: There is bilateral facet hypertrophy. There is marginal osteophyte formation at the neural foramina bilaterally. There is severe left and moderate right neuroforaminal narrowing. There is moderate narrowing of the central canal. SOFT TISSUES: There are low-attenuation lesions of the liver that appear to correspond to hemangiomas identified on the previous CT of the abdomen and pelvis. There is atherosclerosis of the aorta. OTHER: None IMPRESSION: 1. OSTEOPENIA. 2. SCOLIOSIS. 3. DEGENERATIVE DISC DISEASE AND OSTEOARTHRITIS. 4. THERE IS SEVERE NARROWING OF THE CENTRAL CANAL AT L4-L5 WITH MODERATE NARROWING AT L3-L4 AND L5-S1. 5. THERE IS MULTILEVEL NEUROFORAMINAL NARROWING DESCRIBED ABOVE. 6. NO ACUTE OSSEOUS INJURY TO THE LUMBAR SPINE.
--- NOTE | 2017-10-10 20:49 | RAD ---
EXAM: XR Cervical Spine, 2 or 3 Views CLINICAL HISTORY: 71 years old, female; Pain; Neck pain; Patient HX: Recent CT with motion artifact R/O c2 FX; Additional info: Possible c2 fracture TECHNIQUE: Frontal and lateral views of the cervical spine. COMPARISON: OT - [facility] SP CERVICAL 4+VWS 2016-09-18 10:24 FINDINGS: Vertebrae: The C7 vertebra is obscured by the patient's shoulders on the lateral view. Unremarkable. No definite fracture. Normal alignment. Disc spaces: Moderate disc space narrowing at the C4-5 level and mild disc space narrowing at the C5-6 level. Soft tissues: Unremarkable. Vasculature: Atherosclerotic calcification of the aortic arch. IMPRESSION: 1. Multilevel degenerative disc disease. 2. Limited study, No acute fracture, subluxation, or aggressive osseous lesion. 3. No change from the comparison study.
--- NOTE | 2017-10-10 22:27 | RAD ---
EXAM: CT Cervical Spine Without Intravenous Contrast CLINICAL HISTORY: 71 years old, female; Injury or trauma; Fall; Initial encounter; Fracture, stress; Not specified; Injury details: Pt had CT scan of neck earlier along with negative xray, er doctor still unsure about fracture. ; Additional info: Potential c2 fracture TECHNIQUE: Axial computed tomography images of the cervical spine without intravenous contrast. Coronal and sagittal reformatted images were created and reviewed. COMPARISON: OT - [facility] SP CERVICAL 4+VWS 2017-10-10 20:07. Correlation is also made with a prior CT of the cervical spine of the same date from approximately 3 hours earlier. FINDINGS: Vertebrae: C7 hemangioma. No acute fracture. The previously noted cortical irregularity in the C2 vertebra on the prior CT study appears to be secondary to motion artifact. Discs/spinal canal/neural foramina: Disc space narrowing at the C4-5 and C5-6 levels. Soft tissues: Unremarkable. No prevertebral soft tissue swelling. Lung apices: Unremarkable as visualized. IMPRESSION: 1. Multilevel degenerative disc disease. 2. No acute fracture, subluxation, or aggressive osseous lesion. I agree with the above report with the minor additions, Doug Sagastume MD.
[2017-10-10 23:04] VITALS: BP 130/106
--- NOTE | 2017-10-11 06:56 | RAD ---
INDICATION: Left elbow injury. TECHNIQUE: 4 views of the left elbow were obtained. The positioning of the exam is limited. FINDINGS: There is posterior soft tissue swelling. The bones are normal alignment. No fracture is seen. No joint effusion is appreciated. IMPRESSION: LIMITED STUDY, NO FRACTURE IS SEEN. IF THE PATIENT'S SYMPTOMS PERSIST RECOMMEND FOLLOW-UP IMAGING. R0
--- NOTE | 2017-10-11 07:07 | RAD ---
INDICATION: Left forearm injury. COMPARISON: Comparison is made with a prior x-ray study of the hand from September 18, 2016. TECHNIQUE: 2 views of the left forearm were obtained. FINDINGS: The bones appear osteopenic. There is a defect in the distal ulna consistent with either chronic erosive change, post surgical or post traumatic change. This appears unchanged significantly from the prior study. There is dorsal dislocation of the carpal bones relative to the distal radius which appears similar to the prior exam. No acute fracture is seen. Soft tissue swelling is noted posterior to the olecranon process. IMPRESSION: 1. POSTERIOR DISLOCATION OF THE CARPAL BONES RELATIVE TO THE DISTAL RADIUS UNCHANGED FROM THE PRIOR STUDY. NO ACUTE FRACTURE IS SEEN. 2. CHRONIC DEFECT IN THE DISTAL ULNA WHICH IS UNCHANGED SUGGESTIVE OF CHRONIC EROSIVE CHANGE LESS LIKELY POSTSURGICAL OR TRAUMATIC CHANGE. R2
--- NOTE | 2017-10-11 07:13 | RAD ---
INDICATION: Left humerus injury. COMPARISON: Comparison is made with a prior chest x-ray study from June 10, 2017. TECHNIQUE: 2 views of the left humerus were obtained. FINDINGS: The bones appear osteopenic. There is superior subluxation of the humerus which is unchanged from the prior study. On one view there is a faint radiolucent projecting over the superior aspect of the humeral head possibly representing a nondisplaced fracture. No other fractures are seen. There is erosion of the distal clavicle. IMPRESSION: 1. POSSIBLE NONDISPLACED FRACTURE OF THE HUMERAL HEAD. 2. CHRONIC SUPERIOR SUBLUXATION OF THE HUMERUS. 3. EROSIVE CHANGE IN THE DISTAL CLAVICLE SUGGESTIVE OF AN INFLAMMATORY ARTHROPATHY WHICH IS ALSO UNCHANGED. R2
== END 2017-10-10 23:05 | disposition home or self-care (01) ==
LOC: ED 18:38
DX: S42.302A Unspecified fracture of shaft of humerus, left arm, initial encounter for closed fracture (principal); M54.2 Cervicalgia; M54.5 Low back pain; W19.XXXA Unspecified fall, initial encounter; Y92.9 Unspecified place or not applicable
CPT/HCPCS: 70450; 72040; 72125; 72131; 99283

== ENCOUNTER 2018-01-26 04:28 | Emergency (ER) | payer MEDICAID, MEDICARE ==
--- NOTE | 2018-01-26 05:32 | ED ---
Adult Trauma - HPI Summary HPI Summary: This patient is a 72 year old F brought in by EMS from the [facility] to [facility] after she fell out of bed at 0315. The staff at facility sent report that stated the patient fell about 10 inches out of bed and onto her right side. They stated the patient was attempting to get away from an octopus trying to crawl into her vagina. The patient rates the pain 10/10 in severity. Patient reports right leg pain, gluteal pain, and right arm pain. Patient denies LOC. Pt sates she does not usually ambulate at baseline. The patient knows the date, president, and where she is but she believes she is in the ED because there is something in her blood stream. Hx dementia. - History of Current Complaint Chief Complaint: EDChildAtRisk Stated Complaint: FALL Time Seen by Provider: 01/26/18 05:00 Hx Obtained From: Patient, EMS Mechanism of Injury: Blunt Trauma Loss of Consciousness: no loss of consciousness Onset/Duration: Started Days Ago, Still Present Onset Severity: Severe Current Severity: Severe Pain Intensity: 10 Pain Scale Used: 0-10 Numeric Location: Other - r arm and r leg Associated Signs & Symptoms: Positive: Negative - LOC - Additional Pertinent History Primary Care Physician: [id number] - Allergy/Home Medications Allergies/Adverse Reactions: Allergies Allergy/AdvReac Type Severity Reaction Status Date / Time amoxicillin Allergy GI Upset Verified 10/10/17 18:48 clavulanic acid Allergy GI Upset Verified 10/10/17 18:48 [From Augmentin] niacin Allergy Unknown Verified 10/10/17 18:48 Reaction Details Sulfa (Sulfonamide Allergy GI Upset Verified 10/10/17 18:48 Antibiotics) PMH/Surg Hx/FS Hx/Imm Hx Endocrine/Hematology History: Denies: Hx Anticoagulant Therapy, Hx Diabetes Cardiovascular History: Reports: Other Cardiovascular Problems/Disorders - Mitral valve prolapse Denies: Hx Congestive Heart Failure, Hx Hypertension Respiratory History: Reports: Hx Chronic Obstructive Pulmonary Disease (COPD) GI History: Reports: Hx Gastroesophageal Reflux Disease, Hx Irritable Bowel History: Denies: Hx Renal Disease Musculoskeletal History: Reports: Hx Arthritis, Hx Rheumatoid Arthritis, Hx Orthopedic Injury - hands fx repairs, Hx Osteoporosis Sensory History: Reports: Hx Contacts or Glasses, Hx Macular Degeneration, Hx Hearing Problem - hard hearing Denies: Hx Hearing Aid Opthamlomology History: Reports: Hx Contacts or Glasses, Hx Macular Degeneration Neurological History: Reports: Hx Dementia Psychiatric History: Reports: Hx Anxiety, Hx Depression - Surgical History Surgery Procedure, Year, and Place: hysterectomy, tonsillectomy, knee replacement, bilat hand fx repairs. Infectious Disease History: Unable to Obtain/Confirm Infectious Disease History: Denies: Traveled Outside the [place] in Last 30 Days - Family History Known Family History: Positive: Cardiac Disease, Other - CA Negative: Diabetes - Social History Alcohol Use: None Substance Use Type: Reports: None Smoking Status (MU): Former Smoker Review of Systems Negative: Fever Positive: Other - Hallucinations Positive: Other - r leg and arm pain as well as gluteal pain Negative: Syncope All Other Systems Reviewed And Are Negative: Yes Physical Exam - Summary Physical Exam Summary: VITAL SIGNS: Reviewed. GENERAL: Patient is a well-developed and nourished female who is lying comfortable in the stretcher. Patient is not in any acute respiratory distress. HEAD AND FACE: No signs of trauma. No ecchymosis, hematomas or skull depressions. No sinus tenderness. EYES: PERRLA, EOMI x 2, No injected conjunctiva, no nystagmus. EARS: Hearing grossly intact. Ear canals and tympanic membranes are within normal limits. MOUTH: Oropharynx within normal limits. NECK: Supple, trachea is midline, no adenopathy, no JVD, no carotid bruit, no c- spine tenderness, neck with full ROM. CHEST: Symmetric, no tenderness at palpation LUNGS: Clear to auscultation bilaterally. No wheezing or crackles. CVS: Regular rate and rhythm, S1 and S2 present, no murmurs or gallops appreciated. ABDOMEN: Soft, non-tender. No signs of distention. No rebound no guarding, and no masses palpated. Bowel sounds are normal. EXTREMITIES: hand deformity consistent with RA NEURO: Alert and oriented x 3. No acute neurological deficits. Speech is normal and follows commands. SKIN: Dry and warm Triage Information Reviewed: Yes Vital Signs On Initial Exam: Initial Vitals Temp Pulse Resp BP Pulse Ox 98.3 F 85 18 158/92 94 01/26/18 05:03 01/26/18 05:03 01/26/18 05:03 01/26/18 05:03 01/26/18 05:03 Vital Signs Reviewed: Yes - [place] Coma Scale Best Eye Response: 4 - Spontaneous Best Motor Response: 6 - Obeys Commands Best Verbal Response: 5 - Oriented Coma Scale Total: 15 Diagnostics - Vital Signs Vital Signs Temp Pulse Resp BP Pulse Ox 01/26/18 05:03 98.3 F 85 18 158/92 94 - Laboratory Result Diagrams: 01/26/18 06:14 01/26/18 06:14 Lab Statement: Any lab studies that have been ordered have been reviewed, and results considered in the medical decision making process. - Radiology Pelvic Xray Radiology Interpretation Completed By: ED Physician Summary of Radiographic Findings: No fracture seen. Pending official report. Re-Evaluation - Re-Evaluation First Eval Re-Evaluation Time: 05:59 Comment: The daughter is in the ED and states the hallucinations are new. Head CT will be ordered. Second Eval Re-Evaluation Time: 07:28 Change: Unchanged Comment: 727 - Daughter reports that patient was having hallucinations of octopi and "something entering her veins from the outside". Patient's home nurse had noted that this is a significant change from patient's baseline. Daughter notes that patient was found on the floor, presumably after rolling out of her bed. In the room, patient has complaints of lower right back pain. X- rays to be ordered. Third Eval Re-Evaluation Time: 09:01 Change: Improved Comment: At this point the patient is able to turn to the left to the right the patient is able to sit up with no significant pain. [facility] to [facility]. Adult Trauma Course/Dx - Course Assessment/Plan: This patient is a 72 year old F brought in by EMS from the [facility] to [facility] after she fell out of bed at 0315. The staff at facility sent report that stated the patient fell about 10 inches out of bed and onto her right side. They stated the patient was attempting to get away from an octopus trying to crawl into her vagina. The patient rates the pain 10/10 in severity. Patient reports right leg pain, gluteal pain, and right arm pain. Patient denies LOC. Pt sates she does not usually ambulate at baseline. The patient knows the date, president, and where she is but she believes she is in the ED because there is something in her blood stream. Hx dementia. Pelvic xray reveals: No fracture seen. Pending official report. This patient will be signed out to Dr. Wong awaiting imaging and lab work. - Diagnoses Provider Diagnoses: Hallucination, visual, Fall, Back pain Discharge - Sign-Out/Discharge Documenting (check all that apply): Sign-Out Patient Signing out patient TO: Taj Wong - Discharge Plan Condition: Stable Disposition: HOME Patient Education Materials: Fall Prevention for Older Adults (ED), Back Pain ( ED), Hallucinations (ED) Referrals: Beata Maldonado, [Primary Care Provider] - 3 Days Additional Instructions: RETURN TO ED FOR NEW OR WORSENING SYMPTOMS. FOLLOW UP WITH YOUR PRIMARY CARE PHYSICIAN IN 2-3 DAYS. - Billing Disposition and Condition Condition: STABLE Disposition: Home - Attestation Statements Document Initiated by Stanislav: Yes Documenting Scribe: Daniel Temple Provider For Whom Stanislav is Documenting (Include Credential): Angel Rose MD Scribe Attestation: Daniel Mckeon , scribed for Angel Rose MD on 01/26/18 at 1953. Scribe Documentation Reviewed: Yes Provider Attestation: The documentation as recorded by the Daniel newell accurately reflects the service I personally performed and the decisions made by Max rosario MD Status of Scribe Document: Viewed
[2018-01-26 06:46] LABS: ABS Basophils 0.1 10^3/ul (0-0.2); ABS Eosinophils 0.1 10^3/ul (0-0.6); ABS Lymphocytes 1.1 10^3/ul (1.0-4.8); ABS Monocytes 1.2 10^3/ul (0-0.8); ABS Neutrophils 8.2 10^3/ul (1.5-7.7); ABS Nucleated RBC 0 10^3/ul; Eosinophil % 1.3 %; Hematocrit 39 % (35-47); Lymphocyte % 10.6 %; Mean Corpuscular HGB Conc 34 g/dl (31-36); Mean Corpuscular Hemoglobin 30 pg (27-31); Mean Corpuscular Volume 90 fL (80-97); Mean Platelet Volume 8.3 fL (7.4-10.4); Nucleated Red Blood Cells % 0; Platelet Count 235 10^3/ul (150-450); Red Blood Count 4.28 10^6/ul (4.00-5.40); Red Cell Distribution Width 15 % (10.5-15); White Blood Count 10.7 10^3/ul (3.5-10.8)
[2018-01-26 06:48] LABS: Urine Appearance Cloudy; Urine Blood Negative (Negative); Urine Color Yellow; Urine Ketones Negative (Negative); Urine Protein Negative (Negative); Urine Specific Gravity 1.013 (1.010-1.030); Urine Urobilinogen Negative (Negative)
[2018-01-26 07:00] LABS: INR 0.97 (0.77-1.02)
--- NOTE | 2018-01-26 07:19 | ED ---
Progress - Progress Note Progress Note: Patient is received as a sign out from Dr. Rose to Dr. Wong at 0700 01/26/[address] brain. 727 - Daughter reports that patient was having hallucinations of octopi and "something entering her veins from the outside". Patient's home nurse had noted that this is a significant change from patient's baseline. Daughter notes that patient was found on the floor, presumably after rolling out of her bed. In the room, patient has complaints of lower right back pain. X-rays to be ordered. BRAIN CT IMPRESSION: NO EVIDENCE FOR ACUTE INTRACRANIAL ABNORMALITY. THIS REPORT WAS REVIEWED BY ED PHYSICIAN. LUMBAR SPINE IMPRESSION: #. No fracture evident. 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 THIS REPORT WAS REVIEWED BY ED PHYSICIAN. SACRUM AND COCCYX X-RAY IMPRESSION: #. No fracture evident. If there is persistent clinical concern consider CT for further assessment. THIS REPORT WAS REVIEWED BY ED PHYSICIAN. - EKG/XRAY/CT XRAY: lumbar spine, sacrum and coccyx Xray Comments: Lumbar Spine X-ray AND SACRUM AND COCCYX X-RAY: SEE ABOVE CT: Brain CT Impression: No evidence for acute intracranial abnormality Re-Evaluation - Re-Evaluation First Eval Re-Evaluation Time: 05:59 Comment: The daughter is in the ED and states the hallucinations are new. Head CT will be ordered. Second Eval Re-Evaluation Time: 07:28 Change: Unchanged Comment: 727 - Daughter reports that patient was having hallucinations of octopi and "something entering her veins from the outside". Patient's home nurse had noted that this is a significant change from patient's baseline. Daughter notes that patient was found on the floor, presumably after rolling out of her bed. In the room, patient has complaints of lower right back pain. X- rays to be ordered. Third Eval Re-Evaluation Time: 09:01 Change: Improved Comment: At this point the patient is able to turn to the left to the right the patient is able to sit up with no significant pain. Patient will be discharged to intermediate. Course/Dx - Course Course Of Treatment: Patient was received as sign out from Dr. Rose at shift change. He reports that the patient is a 72-year-old female awaiting for a head CT and blood work. Apparently the patient was hallucinating and she was found on the floor. During my physical exam she was complaining of lower back pain therefore she is also waiting for a lumbar spine x-ray and the coccyx x- ray. Head CT impression: No evidence for acute intra-abdominal abnormality. Right pelvic x-ray impression: Limited the study no evidence of fracture. Lumbar spine x-ray impression: No fracture evident. 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 X-ray of the sacrum impression: No fracture evident. At this point, the patient is able to turn to the left and to the right; the patient is able to sit up with no significant pain. Therefore, at this point, I did not perform a CT of the pelvis or the hip since I have low suspicion for fracture. However, she was instructed to return to the emergency room if she continues to have more pain or the pain does not improve. In the ED, the patient was given ibuprofen for the pain and now at this time the patient will be discharged back to the intermediate with follow-up with PCP. Patients daughter present at the discharge, she agrees with the discharge. - Diagnoses Provider Diagnoses: Hallucination, visual, Fall, Back pain Discharge - Sign-Out/Discharge Documenting (check all that apply): Patient Departure - discharge - Discharge Plan Condition: Stable Disposition: HOME Patient Education Materials: Fall Prevention for Older Adults (ED), Back Pain ( ED), Hallucinations (ED) Referrals: Beata Maldonado DO [Primary Care Provider] - 3 Days Additional Instructions: RETURN TO ED FOR NEW OR WORSENING SYMPTOMS. FOLLOW UP WITH YOUR PRIMARY CARE PHYSICIAN IN 2-3 DAYS. - Billing Disposition and Condition Condition: STABLE Disposition: Home - Attestation Statements Document Initiated by Stanislav: Yes Documenting Scribe: JONG BOWEN Provider For Whom Stanislav is Documenting (Include Credential): CASSY WONG MD Scribe Attestation: JONG Mckeon scribed for CASSY WONG MD on 01/28/18 at 4367. Scribe Documentation Reviewed: Yes Provider Attestation: The documentation as recorded by the JONG newell accurately reflects the service I personally performed and the decisions made by me, CASSY WONG MD Status of Scribe Document: Viewed
[2018-01-26 07:37] LABS: EGFR Non-African American 39.5 (>60)
[2018-01-26] MEDS ORDERED: Acetaminophen TAB* 325 MG PO ONE (09:11)
[2018-01-26 10:57] VITALS: BP 121/66
== END 2018-01-26 10:56 | disposition home or self-care (01) ==
LOC: ED 04:28
DX: M54.9 Dorsalgia, unspecified (principal); R44.1 Visual hallucinations; W06.XXXA Fall from bed, initial encounter; Y92.129 Unspecified place in nursing home as the place of occurrence of the external cause; F03.90 Unspecified dementia, unspecified severity, without behavioral disturbance, psychotic disturbance, mood disturbance, and anxiety; Z88.0 Allergy status to penicillin; I34.1 Nonrheumatic mitral (valve) prolapse; K21.9 Gastro-esophageal reflux disease without esophagitis; J44.9 Chronic obstructive pulmonary disease, unspecified; Z87.891 Personal history of nicotine dependence
CPT/HCPCS: 36415; 70450; 72100; 72170; 72220; 80053; 81003; 85025; 85610; 85730; 86140; 99284; A9270-GY

== ENCOUNTER 2018-03-22 17:19 | Emergency (ER) | payer MEDICARE, OTHER ==
--- NOTE | 2018-03-22 18:16 | ED ---
Lower Extremity - HPI Summary HPI Summary: This patient is a 72 year old female who is presenting to the ED from [facility] with a cc of left hip pain s/p fall. The patient has a hx of dementia and the fall was unwitnessed. The patient states she slipped and did hit her head but denies LOC. She denies left hip pain. - History of Current Complaint Chief Complaint: EDHeadInjury Stated Complaint: FALL Time Seen by Provider: 03/22/18 17:43 Hx Obtained From: Patient, EMS Onset of Pain: Hours Onset/Duration: Hours Severity Initially: Mild Severity Currently: Mild Pain Intensity: 3 Pain Scale Used: 0-10 Numeric Timing: Constant Location: Is Discrete @ - r hip Associated Signs And Symptoms: Negative: Syncope - Allergies/Home Medications Allergies/Adverse Reactions: Allergies Allergy/AdvReac Type Severity Reaction Status Date / Time amoxicillin Allergy GI Upset Verified 10/10/17 18:48 clavulanic acid Allergy GI Upset Verified 10/10/17 18:48 [From Augmentin] niacin Allergy Unknown Verified 10/10/17 18:48 Reaction Details Sulfa (Sulfonamide Allergy GI Upset Verified 10/10/17 18:48 Antibiotics) PMH/Surg Hx/FS Hx/Imm Hx Endocrine/Hematology History: Denies: Hx Anticoagulant Therapy, Hx Diabetes Cardiovascular History: Reports: Other Cardiovascular Problems/Disorders - Mitral valve prolapse Denies: Hx Congestive Heart Failure, Hx Hypertension Respiratory History: Reports: Hx Chronic Obstructive Pulmonary Disease (COPD) GI History: Reports: Hx Gastroesophageal Reflux Disease, Hx Irritable Bowel History: Denies: Hx Renal Disease Musculoskeletal History: Reports: Hx Arthritis, Hx Rheumatoid Arthritis, Hx Orthopedic Injury - hands fx repairs, Hx Osteoporosis Sensory History: Reports: Hx Contacts or Glasses, Hx Macular Degeneration, Hx Hearing Problem - hard hearing Denies: Hx Hearing Aid Opthamlomology History: Reports: Hx Contacts or Glasses, Hx Macular Degeneration Neurological History: Reports: Hx Dementia Psychiatric History: Reports: Hx Anxiety, Hx Depression - Surgical History Surgery Procedure, Year, and Place: hysterectomy, tonsillectomy, knee replacement, bilat hand fx repairs. - Immunization History Immunizations Up to Date: Yes Infectious Disease History: No Infectious Disease History: Denies: Traveled Outside the [place] in Last 30 Days - Family History Known Family History: Positive: Cardiac Disease, Other - [place] Negative: Diabetes - Social History Alcohol Use: None Substance Use Type: Reports: None Smoking Status (MU): Former Smoker Review of Systems Positive: Other - L hip pain Negative: Syncope All Other Systems Reviewed And Are Negative: Yes Physical Exam - Summary Physical Exam Summary: GENERAL: Patient is a well-developed and elderly female who is lying comfortable in the stretcher. Patient is not in any acute respiratory distress. HEAD AND FACE: Normocephalic EYES: PERRLA, EOMI x 2. EARS: Hearing grossly intact. MOUTH: Oropharynx within normal limits. NECK: Supple, trachea is midline, no adenopathy, no JVD, no carotid bruit. CHEST: Symmetric, no tenderness at palpation LUNGS: Clear to auscultation bilaterally. No wheezing or crackles. CVS: Regular rate and rhythm, S1 and S2 present, no murmurs or gallops appreciated. ABDOMEN: Soft, non-tender. Bowel sounds are normal. No abdominal abnormal pulsations. EXTREMITIES: Full ROM in all major joints. There are obvious deformities in the hand and feet secondary to RA. TTP over the right hip. No obvious hip deformity NEURO: Alert and oriented x 3. No acute neurological deficits. Speech is normal and follows commands. SKIN: Dry and warm Triage Information Reviewed: Yes Vital Signs On Initial Exam: Initial Vitals Temp Pulse Resp BP Pulse Ox 97.6 F 85 18 138/78 97 03/22/18 17:33 03/22/18 17:33 03/22/18 17:33 03/22/18 17:33 03/22/18 17:33 Vital Signs Reviewed: Yes Diagnostics - Vital Signs Vital Signs Temp Pulse Resp BP Pulse Ox 03/22/18 17:33 97.6 F 85 18 138/78 97 - Laboratory Result Diagrams: 03/22/18 18:26 03/22/18 18:26 Lab Statement: Any lab studies that have been ordered have been reviewed, and results considered in the medical decision making process. - EKG 1839 Cardiac Rate: NL EKG Rhythm: Sinus Rhythm - at 83 BPM Summary of EKG Findings: early r wave progression Lower Extremity Course/Dx - Course Assessment/Plan: This patient is a 72 year old female who is presenting to the ED from [facility] with a cc of left hip pain s/p fall. The patient has a hx of dementia and the fall was unwitnessed. The patient states she slipped and did hit her head but denies LOC. She denies left hip pain. EKG shows NSR at 83 BPM. The patient will be signed out to Dr. Dowling awaiting imagining - Diagnoses Provider Diagnoses: Fall, Contusion of hip, Closed head injury Discharge - Sign-Out/Discharge Documenting (check all that apply): Sign-Out Patient Signing out patient TO: Joe Patten - Discharge Plan Condition: Stable Disposition: [facility] Patient Education Materials: Head Injury (ED), Contusion in Adults (ED), Fall Prevention (ED) Referrals: Beata Maldonado, DO [Primary Care Provider] - Additional Instructions: Return with altered mental status, increased pain, worse, new symptoms or other concerns. CT scans of the area of pain are negative. Follow up with primary care physician with a call morning. - Billing Disposition and Condition Condition: STABLE Disposition: Jail Facility - Attestation Statements Document Initiated by Scribe: Yes Documenting Scribe: Daniel Temple Provider For Whom Scribe is Documenting (Include Credential): Niya Jorge MD Scribe Attestation: Daniel Mckeon , scribed for Niya Jorge MD on 03/23/18 at 1102. Scribe Documentation Reviewed: Yes Provider Attestation: The documentation as recorded by the Daniel newell accurately reflects the service I personally performed and the decisions made by Niya rosario MD Status of Scribe Document: Viewed
[2018-03-22 18:34] LABS: ABS Basophils 0.1 10^3/ul (0-0.2); ABS Eosinophils 0 10^3/ul (0-0.6); ABS Lymphocytes 0.8 10^3/ul (1.0-4.8); ABS Monocytes 0.9 10^3/ul (0-0.8); ABS Nucleated RBC 0 10^3/ul; Eosinophil % 0.1 %; Hematocrit 39 % (35-47); Lymphocyte % 8.8 %; Mean Corpuscular HGB Conc 33 g/dl (31-36); Mean Corpuscular Hemoglobin 30 pg (27-31); Mean Corpuscular Volume 92 fL (80-97); Mean Platelet Volume 7.6 fL (7.4-10.4); Nucleated Red Blood Cells % 0; Platelet Count 238 10^3/ul (150-450); Red Blood Count 4.29 10^6/ul (4.00-5.40); Red Cell Distribution Width 16 % (10.5-15); White Blood Count 8.7 10^3/ul (3.5-10.8)
[2018-03-22 18:42] LABS: Activated Partial Thrombo Time 25.3 seconds (26.0-36.3); INR 0.96 (0.77-1.02)
[2018-03-22 18:56] LABS: Albumin 3.7 g/dL (3.2-5.2); Albumin/Globulin Ratio 1.4 (1-3); Calcium 10.3 mg/dL (8.6-10.3); EGFR African American 62.2 (>60); EGFR Non-African American 51.4 (>60); Globulin 2.7 g/dL (2-4); Magnesium 2.1 mg/dL (1.9-2.7); Potassium 4.6 mmol/L (3.5-5.0); Total Bilirubin 0.7 mg/dL (0.2-1.0); Total Protein 6.4 g/dL (6.4-8.9)
--- NOTE | 2018-03-22 19:32 | ED ---
Progress - Progress Note Progress Note: Receiving sign out from Dr. Jorge, pending CXR, brain CT, and hip/pelvis XR. Brain CT: No evidence of acute intracranial hemorrhage. ED physician reviewed radiology report. CXR: No acute findings. Pending official radiology report. Hip/Pelvis XR: Possible pubic rami fracture. Pending official radiology report. Cervical Spine CT: 1. No acute cervical spine fracture. 2. Other chronic findings, as above. Pelvis CT: 1. No acute fracture. 2. Other chronic findings, as above. Pt will be discharged home with final dx of fall, closed head injury, and hip contusion. Re-Evaluation - Re-Evaluation First Eval Re-Evaluation Time: 19:31 Change: Unchanged Comment: Pt is unstable and is wheezing. Course/Dx - Course Course Of Treatment: Nurse's notes reviewed. Patient accepted from outgoing ER physician. X-ray appeared negative but there is questionable pubic rami fracture. The patient was able to weight-bear not really walk. She is having minimal discomfort. Most of the discomfort was in the low back. CT of this was negative as was CT of the Tadeo and hip. She was discharged back to the halfway in good condition. - Diagnoses Provider Diagnoses: Fall, Contusion of hip, Closed head injury Discharge - Sign-Out/Discharge Documenting (check all that apply): Patient Departure - Discharge, Receiving Sign-Out Receiving patient FROM: Niya Jorge - Discharge Plan Condition: Stable Disposition: CARE HOME FACILITY Patient Education Materials: Head Injury (ED), Contusion in Adults (ED), Fall Prevention (ED) Referrals: Beata Maldonado, DO [Primary Care Provider] - Additional Instructions: Return with altered mental status, increased pain, worse, new symptoms or other concerns. CT scans of the area of pain are negative. Follow up with primary care physician with a call morning. - Billing Disposition and Condition Condition: STABLE Disposition: Detention Facility - Attestation Statements Document Initiated by Scribe: Yes Documenting Scribe: Shruthi Urena Provider For Whom Scribe is Documenting (Include Credential): Joe Patten MD Scribe Attestation: Shruthi Mckeon, scribed for Joe Patten MD on 03/23/18 at 0117. Scribe Documentation Reviewed: Yes Provider Attestation: The documentation as recorded by the scribe, Shruthi Urena accurately reflects the service I personally performed and the decisions made by me, Joe Patten MD Status of Stanislav Document: Viewed
[2018-03-22 19:57] LABS: Urine Appearance Turbid; Urine Bacteria Absent (Absent); Urine Bilirubin Negative (Negative); Urine Blood Negative (Negative); Urine Color Yellow; Urine Glucose Negative (Negative); Urine Ketones Negative (Negative); Urine Nitrite Positive (Negative); Urine Protein Negative (Negative); Urine Red Blood Cell Absent (Absent); Urine Specific Gravity 1.013 (1.010-1.030); Urine Squamous Epithelial Cell Present (Absent); Urine Urobilinogen Negative (Negative); Urine White Blood Cell Trace(0-5/hpf) (Absent)
[2018-03-22] MEDS ORDERED: Morphine VIAL* 4 MG/ML VIAL (1 ml vial) IV ONE (21:19)
[2018-03-22] MEDS ORDERED: Morphine VIAL* 10 MG/ML 1 ML VIAL ONE (21:43)
[2018-03-22 21:55] VITALS: BP 162/93
--- NOTE | 2018-03-24 15:07 | PN ---
Progress Note - Progress Note Date of Service: 03/22/18 Note: Pt. seen in ED 03/22 after a fall. Urine culture today is growing >100k e. coli. Pt. resides at [facility]. I called and spoke with pt.'s nurse, Amrita, at 1300 and culture was faxed over for attending.
== END 2018-03-22 23:53 ==
LOC: ED 17:19
DX: S70.02XA Contusion of left hip, initial encounter (principal); S09.90XA Unspecified injury of head, initial encounter; W01.10XA Fall on same level from slipping, tripping and stumbling with subsequent striking against unspecified object, initial encounter; Y92.129 Unspecified place in nursing home as the place of occurrence of the external cause; F03.90 Unspecified dementia, unspecified severity, without behavioral disturbance, psychotic disturbance, mood disturbance, and anxiety; Z96.659 Presence of unspecified artificial knee joint; Z88.1 Allergy status to other antibiotic agents; Z88.0 Allergy status to penicillin; Z88.2 Allergy status to sulfonamides; Z88.8 Allergy status to other drugs, medicaments and biological substances; Z87.891 Personal history of nicotine dependence
CPT/HCPCS: 36415; 70450; 71045; 72125; 72192; 80053; 81003; 81015; 83605; 83735; 83880; 84484; 85025; 85610; 85730; 86850; 86900; 86901; 87077; 87086; 87186; 93005; 99283; J2270

== ENCOUNTER 2018-06-17 17:01 | Emergency (ER) | payer MEDICARE, OTHER ==
--- NOTE | 2018-06-17 18:18 | ED ---
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 The chest pain is currently resolved, but she states that the pressure is similar to COPD exacerbations she has experienced. She takes Oxycodone for pain but did not take it today because she wasn't given it at the senior care facility. There are no aggravating or alleviating factors. - History of Current Complaint Chief Complaint: EDChestPainROMI Time Seen by Provider: 06/17/18 17:52 Hx Obtained From: Patient Onset/Duration: Started Hours Ago, Resolved - CP Timing: Lasting Minutes Initial Severity: Moderate Current Severity: Mild Pain Intensity: 0 Pain Scale Used: 0-10 Numeric Chest Pain Location: Left Anterior Chest Pain Radiates: No Character: Pressure/Squeezing Aggravating Factor(s): Nothing Alleviating Factor(s): Nothing Associated Signs and Symptoms: Positive: Shortness of Breath, Other: - arthralgia in left shoulder - Additional Pertinent History Primary Care Physician: [id number] - Allergy/Home Medications Allergies/Adverse Reactions: Allergies Allergy/AdvReac Type Severity Reaction Status Date / Time amoxicillin Allergy GI Upset Verified 10/10/17 18:48 clavulanic acid Allergy GI Upset Verified 10/10/17 18:48 [From Augmentin] niacin Allergy Unknown Verified 10/10/17 18:48 Reaction Details Sulfa (Sulfonamide Allergy GI Upset Verified 10/10/17 18:48 Antibiotics) Home Medications: Home Medications Albuterol Sulfate 0.63 mg INH Q4HR PRN 06/17/18 [History Confirmed 06/17/18] DULoxetine DR CAP* [Cymbalta CAP*] 60 mg PO BEDTIME 06/17/18 [History Confirmed 06/17/18] Denosumab(NF) [Prolia(NF)] 60 mg SUBCUT Q6M 06/17/18 [History Confirmed 06/17/18 ] Dicyclomine CAP* [Bentyl CAP*] 10 mg PO BID 06/17/18 [History Confirmed 06/17/18 ] Docusate CAP* [Colace Cap*] 200 mg PO DAILY PRN 06/17/18 [History Confirmed ] Donepezil TAB* [Aricept 5 MG TAB*] 10 mg PO BEDTIME 06/17/18 [History Confirmed 06/17/18] Lidocaine [Aspercreme Lidocaine Max] 4 % TRANSDERM DAILY 06/17/18 [History Confirmed 06/17/18] Memantine TAB* [Namenda TAB*] 5 mg PO DAILY 06/17/18 [History Confirmed 06/17/18 ] Methyl Salicylate/Menthol [Bengay Greaseless] 1 cre TOPICAL Q6HR PRN 06/17/18 [ History Confirmed 06/17/18] Mineral Oil/Petrolatum,White [Refresh P.m] 1 oin BOTH EYES BEDTIME PRN 06/17/18 [History Confirmed 06/17/18] Oxycodone TAB(NF) [Oxycodone HCl 10 MG] 10 mg PO Q8HR PRN 06/17/18 [History Confirmed 06/17/18] Propylene Glycol/Peg 400/Pf [Systane 0.3-0.4% Eye Drops] 1 drop BOTH EYES Q4HR PRN 06/17/18 [History Confirmed 06/17/18] Senna TAB* [Senokot TAB*] 1 tab PO DAILY PRN 06/17/18 [History Confirmed ] busPIRone TAB* [Buspar TAB*] 10 mg PO BID 06/17/18 [History Confirmed 06/17/18] raNITIdine HCl [Zantac 75] 75 mg PO BID 06/17/18 [History Confirmed 06/17/18] PMH/Surg Hx/FS Hx/Imm Hx Endocrine/Hematology History: Denies: Hx Anticoagulant Therapy, Hx Diabetes Cardiovascular History: Reports: Other Cardiovascular Problems/Disorders - Mitral valve prolapse Denies: Hx Congestive Heart Failure, Hx Hypertension Respiratory History: Reports: Hx Chronic Obstructive Pulmonary Disease (COPD) GI History: Reports: Hx Gastroesophageal Reflux Disease, Hx Irritable Bowel History: Denies: Hx Renal Disease Musculoskeletal History: Reports: Hx Arthritis, Hx Rheumatoid Arthritis, Hx Orthopedic Injury - hands fx repairs, Hx Osteoporosis Sensory History: Reports: Hx Contacts or Glasses, Hx Macular Degeneration, Hx Hearing Problem - hard hearing Denies: Hx Hearing Aid Opthamlomology History: Reports: Hx Contacts or Glasses, Hx Macular Degeneration Neurological History: Reports: Hx Dementia Psychiatric History: Reports: Hx Anxiety, Hx Depression - Surgical History Surgery Procedure, Year, and Place: hysterectomy, tonsillectomy, knee replacement, bilat hand fx repairs. Infectious Disease History: No Infectious Disease History: Denies: Traveled Outside the [place] in Last 30 Days - Family History Known Family History: Positive: Cardiac Disease, Other - CA Negative: Diabetes - Social History Alcohol Use: None Hx Substance Use: No Substance Use Type: Reports: None Hx Tobacco Use: Yes Smoking Status (MU): Former Smoker Do You Chew or Dip Tobacco: No Review of Systems Positive: Chest Pain - pressure Positive: Shortness Of Breath Positive: Arthralgia - in left shoulder All Other Systems Reviewed And Are Negative: Yes Physical Exam - Summary Physical Exam Summary: VITAL SIGNS: Reviewed. GENERAL: Patient is a well-developed and nourished female who is lying comfortable in the stretcher. Patient is not in any acute respiratory distress. HEAD AND FACE: No signs of trauma. No ecchymosis, hematomas or skull depressions. No sinus tenderness. EYES: PERRLA, EOMI x 2, No injected conjunctiva, no nystagmus. EARS: Hearing grossly intact. Ear canals and tympanic membranes are within normal limits. MOUTH: Oropharynx within normal limits. NECK: Supple, trachea is midline, no adenopathy, no JVD, no carotid bruit, no c- spine tenderness, neck with full ROM. CHEST: Symmetric, no tenderness at palpation LUNGS: Clear to auscultation bilaterally. No wheezing or crackles. CVS: Regular rate and rhythm, S1 and S2 present, no murmurs or gallops appreciated. ABDOMEN: Soft, non-tender. No signs of distention. No rebound no guarding, and no masses palpated. Bowel sounds are normal. EXTREMITIES: FROM in all major joints, no edema, no cyanosis or clubbing. NEURO: Alert and oriented x 3. No acute neurological deficits. Speech is normal and follows commands. SKIN: Dry and warm Triage Information Reviewed: Yes Vital Signs On Initial Exam: Initial Vitals Pulse Resp BP Pulse Ox 94 18 149/90 94 06/17/18 17:14 06/17/18 17:14 06/17/18 17:14 06/17/18 17:14 Vital Signs Reviewed: Yes Diagnostics - Vital Signs Vital Signs Temp Pulse Resp BP Pulse Ox 06/17/18 17:46 19 136/94 06/17/18 17:44 92 23 136/94 98 06/17/18 17:15 99.9 F 95 22 149/90 93 06/17/18 17:14 94 18 149/90 94 - Laboratory Result Diagrams: 06/17/18 18:26 06/17/18 18:26 Lab Statement: Any lab studies that have been ordered have been reviewed, and results considered in the medical decision making process. - Radiology CXR Radiology Interpretation Completed By: Radiologist Summary of Radiographic Findings: No acute findings. ED physician has reviewed this report. - EKG 17:14 Cardiac Rate: NL EKG Rhythm: Sinus Rhythm EKG Comparison: No Significant Change - Similar to EKG taken on 03/22/2018. Summary of EKG Findings: No ST elevations. 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 The chest pain is currently resolved, but she states that the pressure is similar to COPD exacerbations she has experienced. She takes Oxycodone for pain but did not take it today because she wasn't given it at the senior care facility. There are no aggravating or alleviating factors. Test results without any significant abnormality except for a whtie count of 11.6, BUN 36, creatinine 1.29, lactic acid is 2.2, glucose 151, calcium 10.4, alkaline phosphatase is 110, TSH is 0.33. Urinalysis negative for UTI. 2 troponins 4 hours apart are both 0.01. In the ED course the patient was given oxycodone for her chronic pain and IV fluids for dehydration. At this point I discussed the findings and test results with the patient, and she will follow up with PCP. Patient is hemodynamically stable alert and oriented 3. The patient will be sent back to the senior care. - Diagnoses Provider Diagnoses: Atypical chest pain, Chronic shoulder pain Discharge - Sign-Out/Discharge Documenting (check all that apply): Patient Departure - Patient will be discharged home. Patient Received Moderate/Deep Sedation with Procedure: No - Discharge Plan Condition: Stable Disposition: HOME Patient Education Materials: Chest Pain (ED), Arthritis (ED) Referrals: Beata Maldonado DO [Primary Care Provider] - 7 Days Additional Instructions: Follow up with your primary care provider in one week. RETURN TO THE EMERGENCY DEPARTMENT FOR ANY NEW OR WORSENING SYMPTOMS. - Billing Disposition and Condition Condition: STABLE Disposition: Home - Attestation Statements Document Initiated by Stanislav: Yes Documenting Scribe: Guerline Zambrano Provider For Whom Stanislav is Documenting (Include Credential): Dr. Taj Wong MD Scribe Attestation: Guerline Mckeon scribed for Dr. Taj Wong MD on 06/18/18 at 0423. Scribe Documentation Reviewed: Yes Provider Attestation: The documentation as recorded by the Guerline newell accurately reflects the service I personally performed and the decisions made by me, Dr. Taj Wong MD Status of Scribe Document: Viewed
[2018-06-17 18:35] LABS: ABS Basophils 0 10^3/ul (0-0.2); ABS Eosinophils 0 10^3/ul (0-0.6); ABS Lymphocytes 0.6 10^3/ul (1.0-4.8); ABS Monocytes 0.8 10^3/ul (0-0.8); ABS Neutrophils 10.2 10^3/ul (1.5-7.7); ABS Nucleated RBC 0 10^3/ul; Eosinophil % 0.1 %; Hematocrit 40 % (33-41); Hemoglobin 12.9 g/dL (12.0-16.0); Lymphocyte % 4.9 %; Mean Corpuscular HGB Conc 32 g/dL (31-36); Mean Corpuscular Hemoglobin 30 pg (27-31); Mean Corpuscular Volume 93 fL (80-97); Mean Platelet Volume 7.1 fL (7.4-10.4); Nucleated Red Blood Cells % 0; Platelet Count 326 10^3/uL (150-450); Red Cell Distribution Width 17 % (10.5-15); White Blood Count 11.6 10^3/uL (3.5-10.8)
[2018-06-17] MEDS ORDERED: oxyCODONE TAB* 5 MG TAB PO ONE (18:42)
[2018-06-17 18:52] LABS: Albumin 3.5 g/dL (3.2-5.2); Albumin/Globulin Ratio 1.3 (1-3); BUN/Creatinine Ratio 27.9 (8-20); Calcium 10.4 mg/dL (8.6-10.3); EGFR Non-African American 40.5 (>60); Globulin 2.6 g/dL (2-4); Magnesium 2.3 mg/dL (1.9-2.7); Total Bilirubin 0.5 mg/dL (0.2-1.0); Total Protein 6.1 g/dL (6.4-8.9)
[2018-06-17 18:55] LABS: Troponin I 0.01 ng/mL (<0.04)
[2018-06-17 18:57] LABS: CKMB ng/mL 2.7 ng/mL (0.6-6.3)
[2018-06-17 19:11] LABS: Urine Appearance Cloudy; Urine Bilirubin Negative (Negative); Urine Blood Negative (Negative); Urine Color Yellow; Urine Glucose Negative (Negative); Urine Ketones Negative (Negative); Urine Nitrite Negative (Negative); Urine Protein Negative (Negative); Urine Specific Gravity 1.023 (1.010-1.030); Urine Urobilinogen Negative (Negative)
[2018-06-17] MEDS ORDERED: NS 0.9% 1000 ML** 1,000 ML IV ONE (19:26)
[2018-06-17 19:47] LABS: Potassium 4.9 mmol/L (3.5-5.0)
[2018-06-17 19:50] LABS: TSH (Thyroid Stimulating Horm) 0.33 mcIU/mL (0.34-5.60)
[2018-06-18 10:37] VITALS: BP 129/86
== END 2018-06-17 22:45 | disposition home or self-care (01) ==
LOC: ED 17:01
DX: Z88.3 Allergy status to other anti-infective agents (principal); Z88.2 Allergy status to sulfonamides; J44.9 Chronic obstructive pulmonary disease, unspecified; I34.1 Nonrheumatic mitral (valve) prolapse; Z79.899 Other long term (current) drug therapy; M06.9 Rheumatoid arthritis, unspecified; M81.0 Age-related osteoporosis without current pathological fracture; F41.9 Anxiety disorder, unspecified; F32.9 Major depressive disorder, single episode, unspecified
CPT/HCPCS: 36415; 71045; 80053; 81003; 82550; 82553; 83605; 83735; 83880; 84443; 84484; 85025; 85610; 85730; 87641; 93005; 96360; 96361; 99285; A9270-GY

== ENCOUNTER 2018-08-08 21:47 | Emergency (ER) | payer MEDICARE, OTHER ==
--- NOTE | 2018-08-08 23:46 | ED ---
Adult Trauma - HPI Summary HPI Summary: 72 year old female presents with head injury today. She had an unwittness fall today. She was reaching up to grab something and had given up falling backwards and hitting her head. admits to some neck pain. Denies any shoulder pain. She told EMS she was having right shoulder pain but denies any currently. denies any chest pressure or shortness of breath. No abdominal pain. No hip pain. No leg pain. Denies any upper extremity pain. No other injury. She denies any headache. - History of Current Complaint Chief Complaint: EDFall Stated Complaint: FALL PER EMS Time Seen by Provider: 08/08/18 22:02 Pain Intensity: 4 - Additional Pertinent History Primary Care Physician: [id number] - Allergy/Home Medications Allergies/Adverse Reactions: Allergies Allergy/AdvReac Type Severity Reaction Status Date / Time amoxicillin Allergy GI Upset Verified 10/10/17 18:48 clavulanic acid Allergy GI Upset Verified 10/10/17 18:48 [From Augmentin] niacin Allergy Unknown Verified 10/10/17 18:48 Reaction Details Sulfa (Sulfonamide Allergy GI Upset Verified 10/10/17 18:48 Antibiotics) PMH/Surg Hx/FS Hx/Imm Hx Endocrine/Hematology History: Denies: Hx Anticoagulant Therapy, Hx Diabetes Cardiovascular History: Reports: Other Cardiovascular Problems/Disorders - Mitral valve prolapse Denies: Hx Congestive Heart Failure, Hx Hypertension Respiratory History: Reports: Hx Chronic Obstructive Pulmonary Disease (COPD) GI History: Reports: Hx Gastroesophageal Reflux Disease, Hx Irritable Bowel History: Denies: Hx Renal Disease Musculoskeletal History: Reports: Hx Arthritis, Hx Rheumatoid Arthritis, Hx Orthopedic Injury - hands fx repairs, Hx Osteoporosis Sensory History: Reports: Hx Contacts or Glasses, Hx Macular Degeneration, Hx Hearing Problem - hard hearing Denies: Hx Hearing Aid Opthamlomology History: Reports: Hx Contacts or Glasses, Hx Macular Degeneration Neurological History: Reports: Hx Dementia Psychiatric History: Reports: Hx Anxiety, Hx Depression - Surgical History Surgery Procedure, Year, and Place: hysterectomy, tonsillectomy, knee replacement, bilat hand fx repairs. Infectious Disease History: Unable to Obtain/Confirm Infectious Disease History: Denies: Traveled Outside the [place] in Last 30 Days - Family History Known Family History: Positive: Cardiac Disease, Other - CA Negative: Diabetes - Social History Alcohol Use: None Hx Substance Use: No Substance Use Type: Reports: None Hx Tobacco Use: Yes Smoking Status (MU): Former Smoker Review of Systems Negative: Fever Negative: Chest Pain Negative: Shortness Of Breath Negative: Headache All Other Systems Reviewed And Are Negative: Yes Physical Exam Triage Information Reviewed: Yes Vital Signs On Initial Exam: Initial Vitals Pulse Pulse Ox 82 95 08/08/18 21:51 08/08/18 21:51 Vital Signs Reviewed: Yes Appearance: Positive: Well-Appearing Skin: Positive: Warm, Dry Head/Face: Positive: Normal Head/Face Inspection Eyes: Positive: Normal, EOMI, KENNY, Conjunctiva Clear ENT: Positive: Normal ENT inspection, Pharynx normal, TMs normal Neck: Positive: Other: - tenderness neck Respiratory/Lung Sounds: Positive: Clear to Auscultation, Breath Sounds Present Cardiovascular: Positive: Normal, RRR Abdomen Description: Positive: Nontender, Soft Bowel Sounds: Positive: Present Musculoskeletal: Positive: Strength/ROM Intact - right shoulder, Other - nontender right shoulder, good pulses Neurological: Positive: Sensory/Motor Intact, CN Intact II-III. Negative: Alert , Oriented to Person Place, Time - not orientated to time Psychiatric: Positive: Normal Diagnostics - Vital Signs Vital Signs Temp Pulse Resp BP Pulse Ox 08/08/18 23:24 143/79 08/08/18 23:00 76 96 08/08/18 22:54 72 142/80 95 08/08/18 22:23 83 122/65 90 08/08/18 22:00 85 92 08/08/18 21:53 83 137/67 92 08/08/18 21:52 98.1 F 83 16 137/67 92 08/08/18 21:51 82 95 - Laboratory Lab Statement: Any lab studies that have been ordered have been reviewed, and results considered in the medical decision making process. - Radiology shoulder Radiology Interpretation Completed By: ED Physician Summary of Radiographic Findings: no fracture - CT brain CT Interpretation Completed By: Radiologist Summary of CT Findings: IMPRESSION: 1. There is stable age-related diffuse cerebral volume loss and chronic. microvascular ischemic disease. 2. No acute intracranial pathology. neck CT Interpretation Completed By: Radiologist Summary of CT Findings: IMPRESSION: No cervical spine fracture or other acute traumatic CT pathology. Adult Trauma Course/Dx - Course Course Of Treatment: 72 year old female presents with head injury today. She had an unwittness fall today. She was reaching up to grab something and had given up falling backwards and hitting her head. admits to some neck pain. Denies any shoulder pain. She told EMS she was having right shoulder pain but denies any currently. denies any chest pressure or shortness of breath. No abdominal pain. No hip pain. No leg pain. Denies any upper extremity pain. No other injury. She denies any headache. On exam has normal neuro exam but is not oriented towards time. Nontender shoulder and full ROM. X-ray shoulder shows arthritis. CT brain and neck normal. Told to follow with primary. Patient understands and agrees plan. - Diagnoses Provider Diagnoses: Fall, Head injury Discharge - Sign-Out/Discharge Documenting (check all that apply): Patient Departure Patient Received Moderate/Deep Sedation with Procedure: No - Discharge Plan Condition: Good Disposition: HOME Patient Education Materials: Head Injury (ED) Referrals: Beata Maldonado DO [Primary Care Provider] - Additional Instructions: follow up with primary within [address] ice on area as needed Take tyenlol as needed for pain Return to ED if develop any new or worsening symptoms - Billing Disposition and Condition Condition: GOOD Disposition: Home
[2018-08-09 00:52] VITALS: BP 152/83
== END 2018-08-09 00:55 | disposition home or self-care (01) ==
LOC: ED 21:47
DX: S09.90XA Unspecified injury of head, initial encounter (principal); W19.XXXA Unspecified fall, initial encounter; Y92.9 Unspecified place or not applicable; Z87.891 Personal history of nicotine dependence; Z88.0 Allergy status to penicillin; Z88.2 Allergy status to sulfonamides; K21.9 Gastro-esophageal reflux disease without esophagitis; J44.9 Chronic obstructive pulmonary disease, unspecified
CPT/HCPCS: 70450; 72125; 99284

== ENCOUNTER 2018-11-11 14:09 | Emergency (ER) | payer MEDICARE, OTHER ==
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
[2018-11-11 15:17] LABS: ABS Basophils 0.1 10^3/ul (0-0.2); ABS Eosinophils 0.1 10^3/ul (0-0.6); ABS Lymphocytes 0.6 10^3/ul (1.0-4.8); ABS Monocytes 0.6 10^3/ul (0-0.8); ABS Neutrophils 9.8 10^3/ul (1.5-7.7); Eosinophil % 0.5 %; Hematocrit 34 % (35-47); Hemoglobin 11.3 g/dL (12.0-16.0); Lymphocyte % 5.8 %; Mean Corpuscular HGB Conc 33 g/dL (31-36); Mean Corpuscular Hemoglobin 32 pg (27-31); Mean Corpuscular Volume 96 fL (80-97); Mean Platelet Volume 7.2 fL (7.4-10.4); Platelet Count 342 10^3/uL (150-450); Red Blood Count 3.58 10^6 /uL (3.70-4.87); Red Cell Distribution Width 17 % (10-15); White Blood Count 11.2 10^3/uL (3.5-10.8)
[2018-11-11 15:34] LABS: Albumin 3.2 g/dL (3.2-5.2); Albumin/Globulin Ratio 1.2 (1-3); BUN/Creatinine Ratio 25.7 (8-20); Calcium 9.5 mg/dL (8.6-10.3); EGFR African American 59.5 (>60); EGFR Non-African American 49.2 (>60); Globulin 2.6 g/dL (2-4); Total Bilirubin 0.7 mg/dL (0.2-1.0); Total Protein 5.8 g/dL (6.4-8.9)
[2018-11-11 15:39] LABS: Troponin I 0.01 ng/mL (<0.04)
[2018-11-11 15:52] LABS: Potassium 5.4 mmol/L (3.5-5.0)
[2018-11-11] MEDS ORDERED: Iodixanol* (CONTRAST) 320 MG/ML 100 ML SDV IV ONE (16:57)
[2018-11-11] MEDS ORDERED: NS 0.9% 1000 ML** 1,000 ML IV ONE (19:55)
[2018-11-11] MEDS ORDERED: HYDROcodone/ACETAMIN 5-325 MG* 1 TAB PO ONE (21:25)
[2018-11-11 23:25] VITALS: BP 161/81
== END 2018-11-11 23:07 | disposition home or self-care (01) ==
LOC: ED 14:09
DX: R07.9 Chest pain, unspecified (principal); E87.5 Hyperkalemia; E86.0 Dehydration; R06.02 Shortness of breath; R11.0 Nausea; R05 Cough; Z88.0 Allergy status to penicillin; Z87.891 Personal history of nicotine dependence; J44.9 Chronic obstructive pulmonary disease, unspecified; K21.9 Gastro-esophageal reflux disease without esophagitis
CPT/HCPCS: 36415; 71045; 71275; 80053; 83605; 84484; 85025; 85379; 93005; 96360; 99285; Q9967

== ENCOUNTER 2018-12-29 12:54 | Emergency (ER) | payer MEDICARE, OTHER ==
--- OUTSIDE RECORDS SUMMARY | 2018-12-29 13:23 | XMS REPORT | Continuity of Care Document ---
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 Onset: 06/07/2017 Long-term current use of systemic Ronaldo Kan M.D. Onset: 06/07/2017 steroid Vitamin B deficiency Ronaldo Kan M.D. Onset: 06/07/2017 Acute cystitis Beata Maldonado D.O. Onset: 06/07/2017 Taking medication Ronaldo Kan M.D. Onset: 06/07/2017 Bite of nonvenomous arthropod Ronaldo Kan M.D. Onset: 06/07/2017 Chronic pain Ama Orlando NP Onset: 06/07/2017 Pain of breast Aleena Crooks NP Onset: 06/07/2017 Acute sinusitis Ronaldo Kan M.D. Onset: 06/07/2017 Age-related osteoporosis without Ronaldo Kan M.D. Onset: 06/07/2017 current pathological fracture Constipation Ama Orlando NP Onset: 06/07/2017 Allergic rhinitis Ama Orlando, CYLINDER BATCHER Onset: 06/07/2017 Rheumatic fever without heart Ama Orlando, CYLINDER BATCHER Onset: 06/07/2017 involvement Fibromyalgia Ama Orlando, CYLINDER BATCHER Onset: 06/07/2017 Gastroesophageal reflux disease Ama Orlando, CYLINDER BATCHER Onset: 06/07/2017 Malaise and fatigue Ronaldo Kan M.D. Onset: 06/07/2017 C-reactive protein abnormal Ronaldo Kan M.D. Onset: 06/07/2017 Dyspnea Mary Jorje, N.P. Onset: 06/07/2017 Breathing painful Mary Jorje, N.P. Onset: 06/07/2017 Unspecified osteoarthritis, unspecified Ronaldo Kan M.D. Onset: 06/07/2017 site Osteochondropathy Ronaldo Kan M.D. Onset: 06/07/2017 Low back pain Ronaldo Kan M.D. Onset: 06/07/2017 Neck pain Ronaldo Kan M.D. Onset: 06/07/2017 Pain in thoracic spine Ronaldo Kan M.D. Onset: 06/07/2017 Vitamin D deficiency Ronaldo Kan M.D. Onset: 06/07/2017 Synovitis and tenosynovitis Kimmy Meneses M.D. Onset: 06/07/2017 Osteoarthritis of wrist Kimmy Meneses M.D. Onset: 06/07/2017 Social History Type Date Description Comments Sex Unknown Tobacco Use Start: Unknown End: Former Cigarette Smoker Unknown Smoking Status Reviewed: 11/22/18 Former Cigarette Smoker ETOH Use Denies alcohol use ETOH Use Never used alcohol Tobacco Use Start: Unknown End: Patient is a former pt. quit in 2001. 1 Unknown smoker 1/2 ppd for 38 years Recreational Drug Use Denies Drug Use Exercise Type/Frequency Exercises rarely Starting to walk this week 04/06/17 Allergies, Adverse Reactions, Alerts Active Allergies Reaction Severity Comments Date Sulfa Antibiotics 09/16/2016 Amoxicillin 09/16/2016 Niacin 09/16/2016 Erythromycin 05/12/2017 Vancomycin 05/12/2017 Medications Active Medications SIG Qnty Indications Ordering Date Provider Namenda 1 tab by mouth F03.90 Aleena 06/28/2017 5mg Tablets every day SID Crooks Duloxetine HCL 1 by mouth every 30caps F33.0 [facility] 06/17/2017 60mg day SID Crooks Caps DR Cori Cano Odt 1 tab by mouth 20tabs [facility], 06/07/2017 4mg every 6 hours as M.D. Tablets Dispers needed nausea Loperamide HCL take one capsule by 100caps [facility], 06/07/2017 2mg mouth every 4 hours M.D. Capsules as needed for diarrhea. Duoneb 1 unit nebl every 6 540ml J44.9 [facility], 06/07/2017 hours as needed M.D. 0.5-2.5(3)mg/3ML Solution Docusate Sodium take 1 by mouth 60tabs K59.00 [facility], 06/07/2017 100mg every 12 hours as M.D. Tablets needed for constipation. Artificial Tears apply 1 drop both 1Bottle [facility], 06/07/2017 0.4% eyes every four M.D. Solution hours as needed for dry eye Albuterol Sulfate 1 unit nebl every 6 300units R06.02 [facility], 06/07 hours as needed M.D. (2.5mg/3ML) 0.083% Nebulizer Oxycodone HCL 1 by mouth every 6 [facility], 06/07/2017 10mg hours DX: pain; M.D. Tablets hold for lethargy Systane 1 drop each eye 30ml [facility], 06/07/2017 0.4-0.3% twice a day M.D. Solution Saline Nasal [place] 2 sprays to both 44ml [facility], 06/07/2017 nares twicw a day. M.D. 0.65% Solution Senna-Docusate 1 by mouth at hs 60tabs K59.00 [facility], 06/07/2017 Sodium for constipation M.D. 8.6-50mg Tablets Prolia 60 mg SQ q 6mon, 60mg M19.90 [facility], 06/07/2017 60mg/ml call provider with M.D. Solution ca+ level before administering. Melatonin give two tabs by G47.00 [facility] 06/07/2017 1mg mouth at bedtime SID Crooks Capsules for sleep, pt may refuse. Incruse Ellipta inhale one puff by 30units J44.9 [facility] 06/07/2017 mouth every morning SID Crooks 62.5mcg/Inh Aerosol Fluticasone 1 sprays each 16units J30.9 [facility] 06/07/2017 Propionate nostril qd. SID Crooks 50mcg/Act Suspension Fish Oil 1 by mouth every 30caps Ronaldo Canodor, 06/07/2017 1000mg day M.D. Capsules Atorvastatin Calcium 1 by mouth in 90tabs E78.5 Ronaldo Loreta, 06/07/2017 evening M.D. 10mg Tablets Oxygen please use o2 at 1units R09.02 Adelina Mason, 05/20/2017 Misc 2l/min during MD exertion, pls provide pt with portable o2 concentrator Folic Acid take one 90tabs D52.9 Ronaldo Canodor, 09/16/2016 1mg capsule/tablet M.D. Tablets daily by mouth every Wed, , , Wed, Wednesday. Seroquel take 1 by mouth at Unknown 25mg Tablets bedtime Prednisone 1.5 tablet po one Unknown 10mg time a day for Ra Tablets Nitroglycerin 1 sl q5mins x3 as Unknown 0.4mg needed for chest Tablets Sub pain Aspercreme Lidocaine Unknown 4% Patches Symbicort 2 puff twice a day J44.9 Unknown 160-4.5mcg/Act Aerosol Zantac 75 1 tab twice daily K30 Unknown 75mg Tablets Restasis Multidose 1 drop in both eyes Unknown every morning and 0.05% Emulsion evening. Oyster Shell Calcium every other day M19.90 Unknown 500/D 500-200 Tablets Maalox Advanced 30 milliliters Unknown Maximum Strength every 4 hours as needed indigestion [phone]/5ML Suspension Ipratropium [place] 1 vial in nebulizer Unknown every 6 hrs as 0.02% Solution needed for SOB. Buspirone HCL 1 tab every day F33.0 Unknown 5mg Tablets Wellbutrin XL 1 by mouth every 90tabs F33.0 Unknown 300mg day Tablets ER 24HR Bentyl 1 tab by mouth two K58.8 Unknown 10mg Capsules times a day. Aricept 1 by mouth every F03.90 Unknown 10mg Tablets day Acetaminophen 2 tablets by mouth Unknown 325mg every 6 hours as Tablets needed for pain/fever Medications Administered in Office Medication SIG Qnty Indications Ordering Provider Date Depomedrol 40MG Hola Covington MD 07/29/2017 Injection Immunizations CPT Code Status Date Vaccine Lot # [id number] Given 03/23/2013 Pneumonia Vaccine [id number] Given 12/28/2003 Pneumococcal Conjugate Vaccine 13 Valent For Intramuscular Use Vital Signs Date Vital Result Comment 11/22/2018 11:40am Height 62.25 inches 5'2.25" Weight 106.00 lb with shoes Heart Rate 96 /min BP Systolic 114 mmHg Rue reg cuff BP Diastolic 60 mmHg Rue reg cuff BP Systolic Sitting 120 mmHg Lue reg cuff BP Diastolic Sitting 60 mmHg Lue reg cuff BP Systolic Standing 122 mmHg Lue reg cuff BP Diastolic Standing 62 mmHg Lue reg cuff Respiratory Rate 16 /min BMI (Body Mass Index) 19.2 kg/m2 10/19/2018 1:19pm Heart Rate 80 /min BP Systolic 118 mmHg BP Diastolic 64 mmHg Respiratory Rate 18 /min Body Temperature 96.5 F Pain Level 0 O2 % BldC Oximetry 95 % Results Test Date Facility Test Result H/L Range Note Comp Metabolic 06/27/2018 [facility] Sodium 140 mmol/L Normal 135-145 1 [address] [place] [address] [phone] Potassium 4.0 mmol/L Normal 3.5-5.0 Chloride 104 mmol/L Normal 101-111 Co2 Carbon Dioxide 30 mmol/L Normal 22-32 Anion Gap 6 mmol/L Normal 2-11 Glucose 86 mg/dL Normal 70-100 Blood Urea Nitrogen 27 mg/dL High 6-24 Creatinine 1.08 mg/dL High 0.51-0.95 BUN/Creatinine Ratio 25.0 High 8-20 Calcium 10.3 mg/dL Normal 8.6-10.3 Total Protein 5.9 g/dL Low 6.4-8.9 Albumin 3.6 g/dL Normal 3.2-5.2 Globulin 2.3 g/dL Normal 2-4 Albumin/Globulin Ratio 1.6 Normal 1-3 Total Bilirubin 0.70 mg/dL Normal 0.2-1.0 Alkaline Phosphatase 99 U/L Normal 34-104 Alt 14 U/L Normal 7-52 Ast 11 U/L Low 13-39 Egfr Non- 49.7 >60 Egfr 60.2 >60 2 Laboratory test 06/27/2018 [facility] Vitamin D 89.1 ng/mL High 20-50 [address] Total 25(Oh) [place] [address] [phone] Laboratory test 06/17/2018 [facility] Troponin-I 0.01 ng/mL < 0.04 [address] (TnI) [place] [address] [phone] Urinalysis 06/17/2018 [facility] Urine Color Yellow Profile [address] [place] [address] [phone] Urine Appearance Cloudy Urine Specific [place] 1.023 Normal 1.010-1.030 Urine pH 6.0 Normal 5-9 Urine Urobilinogen Negative Negative Urine Ketones Negative Negative Urine Protein Negative Negative Urine Leukocytes Negative Negative Urine Blood Negative Negative Urine Nitrite Negative Negative Urine Bilirubin Negative Negative Urine Glucose Negative Negative Laboratory test 06/17/2018 [facility] MRSA Screen SEE RESULT [address] [place] [address] [phone] CBC Auto Diff 06/17/2018 [facility] White Blood 11.6 10^3/uL High 3.5-[address] Count .8 [place] [address] [phone] Red Blood Count 4.30 10^6/uL Normal 3.70-4.87 Hemoglobin 12.9 g/dL Normal 12.0-16.0 Hematocrit 40 % Normal 33-41 Mean Corpuscular Volume 93 fL Normal 80-97 Mean Corpuscular Hemoglobin 30 pg Normal 27-31 Mean Corpuscular HGB Conc 32 g/dL Normal 31-36 Red Cell Distribution Width 17 % High 10.5-15 Platelet Count 326 10^3/uL Normal 150-450 Mean Platelet Volume 7.1 fL Low 7.4-10.4 Abs Neutrophils 10.2 10^3/uL High 1.5-7.7 Abs Lymphocytes 0.6 10^3/uL Low 1.0-4.8 Abs Monocytes 0.8 10^3/uL Normal 0-0.8 Abs Eosinophils 0 10^3/uL Normal 0-0.6 Abs Basophils 0 10^3/uL Normal 0-0.2 Abs Nucleated RBC 0 10^3/uL Granulocyte % 88.2 % Lymphocyte % 4.9 % Monocyte % 6.5 % Eosinophil % 0.1 % Basophil % 0.3 % Nucleated Red Blood Cells % 0 Laboratory 06/17/2018 [facility] Lactic 2.2 mmol/L Critical 0.5-2.0 6 test finding [address] [place] [address] [phone] B-Type Natriuretic Peptide BNP 76 pg/mL <=100 Inr/Protime 06/17/2018 [facility] Inr 1.00 Normal 0.82-1.[address] [place] [address] [phone] Laboratory test 06/17/2018 [facility] Partial 24.0 Low 26.0- 36.[address] [place] [address] Time PTT [phone] Comp Metabolic 06/17/2018 [facility] Sodium 138 mmol/L Normal 135-[address] [place], [place] [id number] [phone] Chloride 104 mmol/L Normal 101-111 Co2 Carbon Dioxide 28 mmol/L Normal 22-32 Glucose 151 mg/dL High 70-100 Blood Urea Nitrogen 36 mg/dL High 6-24 Creatinine 1.29 mg/dL High 0.51-0.95 BUN/Creatinine Ratio 27.9 High 8-20 Calcium 10.4 mg/dL High 8.6-10.3 Total Protein 6.1 g/dL Low 6.4-8.9 Albumin 3.5 g/dL Normal 3.2-5.2 Globulin 2.6 g/dL Normal 2-4 Albumin/Globulin Ratio 1.3 Normal 1-3 Total Bilirubin 0.50 mg/dL Normal 0.2-1.0 Alkaline Phosphatase 110 U/L High 34-104 Alt 20 U/L Normal 7-52 Egfr Non- 40.5 >60 Egfr 49.0 >60 8 Potassium 4.9 mmol/L Normal 3.5-5.0 Anion Gap 6 mmol/L Normal 2-11 Ast 12 U/L Low 13-39 Laboratory test 06/17/2018 [facility] Magnesium 2.3 mg/dL Normal 1.9-2.[address] [place] [address] [phone] Creatine Kinase(CK) 28 U/L Normal 10-223 Troponin-I (TnI) 0.01 ng/mL <0.04 9 CKMB 06/17/2018 [facility] CKMB 2.7 ng/mL Normal 0.6-6.[address] ng/[place] [address] [phone] Laboratory test 06/17/2018 [facility] TSH 0.33 Low 0.34-5.[address] (Thyroid mcIU/[place] [address] Stim Rars) [phone] 1 [facility] [address], Room Number 323W [id number] 2 Because ethnic data is not always [...] 5 Kidney failure <15 (or dialysis) 3 Total 25-Hydroxyvitamin D2 and D3 (25-OH-VitD) <10 ng/mL (severe deficiency) 10-19 ng/mL (mild to moderate deficiency) 20-50 ng/mL (optimum levels) 51-80 ng/mL (increased risk of hypercalciuria) >80 ng/mL (toxicity possible) 4 Troponin-I testing on Plasma Separator Tubes (PST) has a known false positive rate of 0.20-0.40%. All positive troponins reflex immediately to secondary confirmatory testing. Using the [employer] DxI 800 Access Immunoassay systems, the 99th percentile upper reference limit was demonstrated to be < 0.03 ng/mL. 5 SEE RESULT BELOW Name: JORGE LUIS CHIN : [address]: Taj Wong MD Acct: [id number] Unit: [id number] AGE: 72 Location: ED Re06/17/18 SEX: F Status: REG ER SPEC: [id number] VERONICA: 06/17/18 [facility] DR: Taj Wong MD REQ: [id number] RECD: 06/17/18 STATUS: JUSTEN NGUYEN DR: Beata Maldonado DO _ SOURCE: NASAL SPDESC: ORDERED: MRSA PCR-Nasal Procedure Result Reported Site MRSA PCR (Nasal) Final 06/17/18- 2019 ML Organism 1 MRSA NOT DETECTED * ML - Main Lab . END OF REPORT DEPARTMENT OF PATHOLOGY, [address] [place] [address] Magdy Brady M.D. Director [facility] # [id number] Critical Result LACT:2.2 Called to JOSÉ ANTONIO at: 18:54:05 by:[email or web address] Read back by:JOSÉ ANTONIO [facility] Severe Sepsis and Septic Shock Management Bundle Measure requires all lactic acids initially measuring >2.0 mmol/L be repeated. 7 Standard intensity warfarin therapeutic range: 2.0-3.0 High intensity warfarin therapeutic range: 2.5-3.5 8 Because ethnic data is not always readily [...] 15-29 5 Kidney failure <15 (or dialysis) 9 Troponin-I testing on Plasma Separator Tubes (PST) has a known false positive rate of 0.20-0.40%. All positive troponins reflex immediately to secondary confirmatory testing. Using the [employer] Access Immunoassay systems, the 99th percentile upper reference limit was demonstrated to be < 0.03 ng/mL. Procedures Date Code Description Status 11/22/2018 05350 EKG Tracing & Interpretation Completed 09/18/2016 [id number] Bone Mineral Density Test Completed Medical Devices Description No Information Available Encounters Type Date Location Provider Dx Diagnosis Office Visit 11/22/2018 [facility] Charisse Rubio, R01.1 Cardiac murmur, 11:45a [employer] [place] unspecified R06.02 Shortness of breath M06.9 Rheumatoid arthritis, unspecified Office Visit 10/19/2018 8:30a [place] Cesar Sanchez, F33.9 Major depressive PA disorder, recurrent, unspecified R41.0 Disorientation, unspecified M06.9 Rheumatoid arthritis, unspecified J44.9 Chronic obstructive pulmonary disease, unspecified 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 F33.0 Major depressive disorder, recurrent, mild K21.9 Gastro-esophageal reflux disease without esophagitis Office Visit 09/05/2018 8:15a [place] Cesar Crooks, F33.9 Major depressive CYLINDER BATCHER disorder, recurrent, unspecified R41.0 Disorientation, unspecified Office Visit 08/25/2018 8:15a [place] Cesar Sanchez, J44.9 Chronic obstructive PA pulmonary disease, unspecified R23.8 Other skin changes M06.9 Rheumatoid arthritis, unspecified J44.9 Chronic obstructive pulmonary disease, unspecified M06.9 Rheumatoid arthritis, unspecified R23.8 Other skin changes Office Visit 08/22/2018 8:30a [facility] Beata Maldonado F33.9 Major depressive D.O. disorder, recurrent, unspecified M06.9 Rheumatoid arthritis, unspecified F03.90 Unspecified dementia without behavioral disturbance J44.9 Chronic obstructive pulmonary disease, unspecified F41.8 Other specified anxiety disorders E55.9 Vitamin D deficiency, unspecified E78.5 Hyperlipidemia, unspecified Office Visit 07/26/2018 8:15a [facility] Beata Maldonado, F33.9 Major depressive D.O. 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 shoulder M06.9 Rheumatoid arthritis, unspecified Assessments Date Code Description Provider 11/22/2018 R01.1 Cardiac murmur, unspecified Chraisse Rubio M.D. 11/22/2018 R06.02 Shortness of breath Charisse Rubio M.D. 11/22/2018 M06.9 Rheumatoid arthritis, unspecified Charisse Rubio M.D. 10/19/2018 F33.9 Major depressive disorder, recurrent, Vickie Sundman, PA unspecified 10/19/2018 R41.0 Disorientation, unspecified Vickie Sundman, PA 10/19/2018 M06.9 Rheumatoid arthritis, unspecified Vickie Sundman, PA 10/19/2018 J44.9 Chronic obstructive pulmonary disease, Vickie Sundman, PA unspecified 10/19/2018 Z79.52 longterm (current) use of systemic steroids Vickie Sundman, PA 10/19/2018 F33.0 Major depressive disorder, recurrent, mild Vickie Sundman, PA 10/19/2018 K21.9 Gastro-esophageal reflux disease without Vickie Sundman, PA esophagitis 10/06/2018 M06.9 Rheumatoid arthritis, unspecified Vickie Sundman, PA 10/06/2018 M25.512 Pain in left shoulder Vickie Sundman, PA 09/05/2018 F33.9 Major depressive disorder, recurrent, Aleena Touchanton, CYLINDER BATCHER unspecified 09/05/2018 R41.0 Disorientation, unspecified Aleena [place], CYLINDER BATCHER 08/25/2018 J44.9 Chronic obstructive pulmonary disease, Vickie Sanchez, PA unspecified 08/25/2018 R23.8 Other skin changes Vickie Sanchez, PA 08/25/2018 M06.9 Rheumatoid arthritis, unspecified Vickie Sanchez, PA 08/25/2018 J44.9 Chronic obstructive pulmonary disease, Vickie Sanchez, PA unspecified 08/25/2018 M06.9 Rheumatoid arthritis, unspecified Vickie Sanchez, PA 08/25/2018 R23.8 Other skin changes Vickieeden Sanchez, PA 08/22/2018 F33.9 Major depressive disorder, recurrent, Beata Joel, D.O. unspecified 08/22/2018 M06.9 Rheumatoid arthritis, unspecified Beata Joel, D.O. 08/22/2018 F03.90 Unspecified dementia without behavioral Beata Joel, D.O. disturbance 08/22/2018 J44.9 Chronic obstructive pulmonary disease, Beata Joel, D.O. unspecified 08/22/2018 F41.8 Other specified anxiety disorders Beata Joel, D.O. 08/22/2018 E55.9 Vitamin D deficiency, unspecified Baeta Joel, D.O. 08/22/2018 E78.5 Hyperlipidemia, unspecified Beata Joel, D.O. 07/26/2018 F33.9 Major depressive disorder, recurrent, Beata Joel, D.O. unspecified 07/25/2018 R23.8 Other skin changes Aleena Touchton, CYLINDER BATCHER 07/04/2018 M06.9 Rheumatoid arthritis, unspecified Aleena Touchton, CYLINDER BATCHER 07/04/2018 F03.90 Unspecified dementia without behavioral Aleena Touchton, CYLINDER BATCHER disturbance 07/04/2018 J44.9 Chronic obstructive pulmonary disease, Aleena Touchton, CYLINDER BATCHER unspecified 07/04/2018 F41.8 Other specified anxiety disorders Aleena Touchton, CYLINDER BATCHER 07/04/2018 E55.9 Vitamin D deficiency, unspecified Aleena Touchton, CYLINDER BATCHER 07/04/2018 E78.5 Hyperlipidemia, unspecified Aleena Touchton, CYLINDER BATCHER 07/04/2018 Z79.52 longterm (current) use of systemic steroids Aleena Touchton, CYLINDER BATCHER 07/04/2018 H04.123 Dry eye syndrome of bilateral lacrimal glands Aleena Touchton, CYLINDER BATCHER 07/04/2018 F33.0 Major depressive disorder, recurrent, mild Aleena Crooks , CYLINDER BATCHER 07/04/2018 K21.9 Gastro-esophageal reflux disease without Aleena Crooks, CYLINDER BATCHER esophagitis 07/04/2018 J30.9 Allergic rhinitis, unspecified Aleena Crooks, CYLINDER BATCHER 06/14/2018 M25.512 Pain in left shoulder Beata Maldonado D.O. 06/14/2018 M06.9 Rheumatoid arthritis, unspecified Beata Maldonado D.O. Plan of Treatment Future Appointment(s):01/06/2019 11:00 am - Charisse Rubio M.D. at [facility] [place]12/22/2018 12:00 pm - Charisse Rubio M.D. at [facility]02/04/2018 - Omari Tinsley PAM06.9 Rheumatoid arthritis, unspecifiedComments:Patient has no obvious flares of her disease. Disease is very advanced. Continue with PT/OT. Continue Prednisone at 20mg/day. Patient should follow up with Dr. Kan of Rhematology. Patient was supposed to follow up in October but did not. Patient was on Actemra at that time but it is unclear if this has been continued. No Signs of worsening Extra-articular involvement. CRP 25 on recent trip to ED.F03.90 Unspecified dementia without behavioral disturbanceComments:No behavioral disturbance. Continue Aricept and Namenda.J44.9 Chronic obstructive pulmonary disease, unspecifiedComments: Continue Umeclidinium and Nebulizers PRN. No exacerbation.E78.5 Hyperlipidemia, vfogkzhjzufN62.9 Anxiety disorder, unspecifiedComments:Continue Buspar and Duloxetine. Euthymic. Functional Status Description No Information Available Mental Status Description No Information Available Referrals Description No Information Available
--- OUTSIDE RECORDS SUMMARY | 2018-12-29 13:23 | XMS REPORT | Continuity of Care Document ---
:1945 External Reference #:[id number] Author Name Nikko Cobb M.D. Address [address] [facility] [place] [address] Problems Description No Information Available Social History Type Date Description Comments Sex Unknown ETOH Use Never used alcohol Tobacco Use Start: Unknown Patient has never smoked Smoking Status Reviewed: 12/09/18 Patient has never smoked Allergies, Adverse Reactions, Alerts Active Allergies Reaction Severity Comments Date Erythromycin 06/09/2018 Sulfa Antibiotics 06/09/2018 Augmentin 06/09/2018 Vancomycin 06/09/2018 Sulfacetamide 06/09/2018 Medications Active Medications SIG Qnty Indications Ordering Date Provider Seroquel Unknown 25mg Tablets Omeprazole Unknown 20mg Capsules DR Systane Unknown 0.4-0.3% Gel Symbicort Unknown 160-4.5mcg/Act Aerosol Senna 2 tabs by mouth as Unknown 8.6mg Tablets needed for constipation Saline Nasal [place] Unknown 0.65% Solution Refresh Unknown 1.4-0.6% Solution Prolia Unknown 60mg/ml Soln Prefill Syringe Oxycodone HCL Unknown 10mg/0.5ML Concentrate Namenda Unknown 5mg Tablets Melatonin Unknown 1mg Capsules Maalox Childrens Unknown 400mg Chewtabs Lipitor 1 by mouth every Unknown 10mg Tablets night at bedtime Zofran 1 tab twice a day as Unknown 4mg Tablets needed for nausea Zantac 75 Unknown 75mg Tablets Folic Acid Unknown 5mg Capsules Fluticasone Unknown Propionate Nasal [place] 50mcg/Act Suspension Duloxetine HCL Unknown 60mg Caps DR Part Docusate Sodium 1 by mouth twice a Unknown 100mg day Capsules Deltasone Unknown 20mg Tablets Cyclosporine Unknown 25mg Capsules Buspirone HCL Unknown 5mg Tablets Bupropion HCL Unknown 100mg Tablets Bentyl Unknown 10mg/ml Solution Bengay Cold Therapy Unknown 5% Gel Aspercreme Lidocaine Unknown 4% Liquid Aricept Unknown 10mg Tablets Acetaminophen take 1-2 tablets by Unknown 500mg mouth every 6 hours Tablets as needed for pain Immunizations Description No Information Available Vital Signs Date Vital Result Comment 12/09/2018 11:32am Intraocular Pressure Right Eye 14 mmHg Intraocular Pressure Left Eye 14 mmHg 06/09/2018 10:55am Intraocular Pressure Right Eye 3614 mmHg tonopen Intraocular Pressure Left Eye 26 mmHg Results Description No Information Available Procedures Date Code Description Status 12/09/2018 40281 Ophthalmic Biometry By Partial Coherence Interferometry Completed W/Intra 12/09/2018 55790 Eye Exam Est Intermediate Completed Medical Devices Description No Information Available Encounters Description No Information Available Assessments Date Code Description Provider 12/09/2018 H25.811 Combined forms of age-related cataract, right Nikko Cobb M.D. eye Plan of Treatment 12/09/2018 - Nikko Cobb M.D.H25.811 Combined forms of age-related cataract , right eyeComments:Risks, benefits and alternatives to cataract extraction and posterior chamber intraocular lens placement explained, understood and accepted including but not limited to: re-operation, infection, retinal detachment, glaucoma, bleeding in the eye, retained lens material, corneal or macular edema , need for glasses, poor vision and other.Follow up:Schedule patient for the next available cataract surgery date. Functional Status Description No Information Available Mental Status Description No Information Available Referrals Description No Information Available
--- OUTSIDE RECORDS SUMMARY | 2018-12-29 13:23 | XMS REPORT | Continuity of Care Document ---
:1945 External Reference #:[id number] Author Name Nelson Mcneil, OD Address [address] [place] [address] Problems Description No Information Available Social History [...] 8.6mg Tablets needed for constipation Saline Nasal [place] Unknown 0.65% Solution Refresh Unknown 1.4-0.6% Solution [...] Unknown 5mg Capsules Fluticasone Unknown Propionate Nasal [place] 50mcg/Act Suspension Duloxetine HCL Unknown 60mg Caps [...] Available Vital Signs Date Vital Result Comment 06/09/2018 10:55am Intraocular Pressure Right Eye 3614 mmHg tonopen Intraocular Pressure Left Eye 26 mmHg Results Description No Information Available Procedures Description No Information Available Medical Devices Description No Information Available Encounters Description No Information Available Assessments Description No Information Available Plan of Treatment No Information Available Functional Status Description No Information Available Mental Status Description No Information Available Referrals Description No Information Available
--- NOTE | 2018-12-29 13:28 | ED ---
HPI Chest Pain - HPI Summary HPI Summary: The patient is a 73 y/o F arriving by ambulance to [facility] with a chief complaint of intermittent episodes of mid-sternal CP radiating to the thoracic back that has been present for weeks. She describes the CP as heaviness, and the back pain is located midline. The episodes of pain are intermittent, and there is no worsening since onset. There are no aggravating or alleviating factors. Currently, her pain is rated 3/10 in severity. She additionally c/o left flank pressure onset > one month ago, a cough onset three weeks ago, SOB, and nausea without vomiting. No blood thinners. PMHx: COPD, mitral valve prolapse, leaky valve, GERD, IBS, dementia. FHx: cardiac disease. Former smoker, no EtOH, no substance use. Medications reviewed. Allergies noted. Recent visit in October w neg CTA. - History of Current Complaint Chief Complaint: EDChestPainROMI Time Seen by Provider: 12/29/18 12:57 Hx Obtained From: Patient Onset/Duration: Started Days Ago, Still Present Timing: Intermittent, Lasting Hours Initial Severity: Mild Current Severity: Mild Pain Intensity: 3 Pain Scale Used: 0-10 Numeric Chest Pain Location: Mid Sternal Chest Pain Radiates: Yes Chest Pain Radiates To:: Back - midline, Arm Character: Heaviness Aggravating Factor(s): Nothing Alleviating Factor(s): Nothing Associated Signs and Symptoms: Positive: Chest Pain, Shortness of Breath, Nausea , Cough, Back Pain - midline, Other: - left flank pressure. Negative: Vomiting - Additional Pertinent History Primary Care Physician: [id number] - Allergy/Home Medications Allergies/Adverse Reactions: Allergies Allergy/AdvReac Type Severity Reaction Status Date / Time Sulfa (Sulfonamide Allergy Severe GI Upset Verified 12/29/18 13:07 Antibiotics) amoxicillin Allergy Intermediate GI Upset Verified 12/29/18 13:07 clavulanic acid Allergy Intermediate GI Upset Verified 12/29/18 13:07 [From Augmentin] niacin Allergy Unknown Unknown Verified 12/29/18 13:07 Reaction Details vancomycin Allergy Unknown Unknown Verified 12/29/18 13:07 Reaction Details erythromycin base Allergy Unknown Verified 12/29/18 13:07 Reaction Details sulfacetamide Allergy Unknown Verified 12/29/18 13:07 Reaction Details Home Medications: Home Medications Benzonatate CAP* [Tessalon 100 MG CAP*] 100 mg PO Q8HR PRN 12/29/18 [History Confirmed 12/29/18] Dextromethorphan/Benzocaine [Cepacol Sorethroat-Cough Humphrey] 1 each PO Q2HR PRN [History Confirmed 12/29/18] PMH/Surg Hx/FS Hx/Imm Hx Endocrine/Hematology History: Denies: Hx Anticoagulant Therapy, Hx Diabetes Cardiovascular History: Reports: Hx Valvular Heart Disease - Mitral valve prolapse Denies: Hx Congestive Heart Failure, Hx Hypertension, Other Cardiovascular Problems/Disorders Respiratory History: Reports: Hx Chronic Obstructive Pulmonary Disease (COPD) Denies: Other Respiratory Problems/Disorders GI History: Reports: Hx Gastroesophageal Reflux Disease, Hx Irritable Bowel Denies: Other GI Disorders History: Denies: Hx Renal Disease, Other Problems/Disorders - Patient wears pull ups, but is usually continent Musculoskeletal History: Reports: Hx Arthritis - Rheumatoid Arthritis, Hx Rheumatoid Arthritis, Hx Orthopedic Injury - hands fx repairs, Hx Osteoporosis, Other Musculoskeletal History - Osteoporosis, hx of shoulder fracture Sensory History: Reports: Hx Cataracts - Cataract Right Eye, Hx Contacts or Glasses - Glasses, Hx Macular Degeneration, Hx Hearing Problem - hard hearing Denies: Hx Hearing Aid Opthamlomology History: Reports: Hx Cataracts - Cataract Right Eye, Hx Contacts or Glasses - Glasses, Hx Macular Degeneration Neurological History: Reports: Hx Dementia Denies: Other Neuro Impairments/Disorders Psychiatric History: Reports: Hx Anxiety, Hx Depression - Surgical History Surgical History: Yes Surgery Procedure, Year, and Place: Hysterectomy, tonsillectomy, knee replacement, bilataral hand fx repairs. Hx Anesthesia Reactions: No Infectious Disease History: No Infectious Disease History: Denies: Traveled Outside the [place] in Last 30 Days - Family History Known Family History: Positive: Cardiac Disease, Other - [place] Negative: Diabetes - Social History Alcohol Use: None Hx Substance Use: No Substance Use Type: Reports: None Hx Tobacco Use: Yes Smoking Status (MU): Former Smoker Review of Systems Positive: Chest Pain - mid-sternal into left arm Positive: Shortness Of Breath, Cough Positive: Abdominal Pain - left flank pressure, Nausea. Negative: Vomiting Positive: Other - central back pain All Other Systems Reviewed And Are Negative: Yes Physical Exam - Summary Physical Exam Summary: Constitutional: Elderly, Well-developed, Well-nourished, Alert. (-) Distressed Skin: Warm, Dry HENT: Normocephalic; Atraumatic Eyes: Conjunctiva normal Neck: Musculoskeletal ROM normal neck. (-) JVD, (-) Stridor, (-) Nuchal rigidity Cardio: Rhythm regular, rate normal, Heart sounds normal; Intact distal pulses; Radial pulses are 2+ and symmetric. Pulmonary/Chest wall: Effort normal. (-) Respiratory distress, (-) Wheezes, (-) Rales Abd: Soft, (-) tenderness, (-) Distension, (-) Guarding, (-) Rebound Musculoskeletal: Chronic arthritic changes of hands, Left mid thoracic paraspinal tenderness, (-) Edema Lymph: (-) Cervical adenopathy Neuro: Alert, Oriented x3 (does have some confusion with recall) Psych: Mood and affect Normal Triage Information Reviewed: Yes Vital Signs On Initial Exam: Initial Vitals Temp Pulse Resp BP Pulse Ox 99.0 F 97 16 147/87 97 12/29/18 13:01 12/29/18 13:01 12/29/18 13:01 12/29/18 13:01 12/29/18 13:01 Vital Signs Reviewed: Yes Procedures - Sedation Patient Received Moderate/Deep Sedation with Procedure: No Diagnostics - Vital Signs Vital Signs Temp Pulse Resp BP Pulse Ox 12/29/18 13:02 99 15 97 12/29/18 13:01 99.0 F 95 19 147/87 95 - Laboratory Result Diagrams: 12/29/18 13:17 12/29/18 13:17 Lab Statement: Any lab studies that have been ordered have been reviewed, and results considered in the medical decision making process. - Radiology CXR Radiology Interpretation Completed By: Radiologist Summary of Radiographic Findings: Impression: 1. Stigmata of obstructive lung disease. No acute pulmonary or cardiac process evident. 2. Approximate T6 severe anterior and middle column osteoporotic compression fracture is new compared with the November 11, 2018 CT. Given gross absence of visualized trabecular impaction or cortical disruption a subacute fracture is favored over an acute fracture. ED physician has reviewed this report. Lumbar Spine XR Radiology Interpretation Completed By: Radiologist Summary of Radiographic Findings: Impression: 1. Moderate to severe degenerative multilevel disc disease. 2. Scoliosis. ED physician has reviewed this report. Thoracic Spine XR Radiology Interpretation Completed By: Radiologist Summary of Radiographic Findings: Impression: 1. Osteopenia. 2. Compression deformity of t6 new compared to november 11, 2018. There is no significant osseous retropulsion. 3. Degenerative disc disease. ED physician has reviewed this report. - CT Thoracic Spine CT CT Interpretation Completed By: Radiologist Summary of CT Findings: Impression: 1. An acute compression fracture of T5 results in approximately 50% vertebral body height loss. There is no significant bony retropulsion or paraspinal hematoma. 2. Osteopenia. 3. 1.2 cm nodule in the right lobe of thyroid. ED physician has reviewed this report. Lumbar Spine CT CT Interpretation Completed By: Radiologist Summary of CT Findings: Impression: 1. No evidence for fracture. 2. Mild to moderate lumbar spondylosis as described. ED physician has reviewed this report. Cervical Spine CT CT Interpretation Completed By: Radiologist Summary of CT Findings: Impression: Osteopenia. Degenerative disc disease and osteoarthritis as described above. ED physician has reviewed this report. - EKG 1254 Cardiac Rate: NL - 89 BPM EKG Rhythm: Sinus Rhythm Summary of EKG Findings: An EKG at 1254 reveals normal sinus rhythm at 89 BPM, nml axis, nml intervals. No STEMI. No acute changes. ED physician has reviewed and interpreted this EKG. Re-Evaluation - Re-Evaluation First Eval Re-Evaluation Time: 14:50 Change: Unchanged Comment: We discussed results and plan for further imaging based. Second Eval Re-Evaluation Time: 17:35 Change: Improved Comment: We discussed the need for keeping the brace on and plan for discharge. Third Eval Re-Evaluation Time: 18:15 Change: Improved Comment: We readjusted the brace, and she agrees with dsicharge. Chest Pain Course/Dx - Course Course Of Treatment: 73 y/o F w hx COPD p/w mid back pain radiating to chest. - PE w thoracic tenderness, no C or L spine tenderness. Recent neg CP workup in Oct. - chest x-ray shows a thoracic compression fracture at T6, plain films of his T and L-spine also demonstrate a thoracic compression fracture. This is likely secondary to osteopenia, no reported trauma. We'll check CTs of the CT and L-spine per recommendations of neurosurgery. Regarding pain from the back. Chest is suspect this is secondary to her fracture, this patient has a normal chest x-ray (aside from fracture), unchanged EKG, troponin negative. - given duoneb. - recent neg CTA and chest pain workup in October w trop neg x3. - Diagnoses Provider Diagnoses: Thoracic spine fracture - Provider Notifications Discussed Care Of Patient With: Xander Graham - neurosurgery Time Discussed With Above Provider: 14:35 Instructed by Provider To: Other - I discussed the patient's case with Dr. Graham, who recommends C-Spine, T-Spine, and L-Spine CTs. Discharge ED - Sign-Out/Discharge Documenting (check all that apply): Patient Departure - Patient will be discharged home. - Discharge Plan Condition: Stable Disposition: HOME Prescriptions: traMADol TAB* [Ultram*] 25 mg PO Q8H PRN 4 Days #12 tab MDD 3 PRN Reason: Pain - Severe Patient Education Materials: Back Pain (ED) Referrals: Beata Maldonado DO [Primary Care Provider] - 3 Days Additional Instructions: You were seen in the emergency department for back pain. Your CT scan showed a fracture of your thoracic spine. Please wear brace at all times. Please follow up with neurosurgery. Please return for worsening pain, numbness or tingling in the extremities or if you're concerned. It was a pleasure taking care of you today. - Billing Disposition and Condition Condition: STABLE Disposition: Home - Attestation Statements Document Initiated by Stanislav: Yes Documenting Scribe: Guerline Zambrano Provider For Whom Stanislav is Documenting (Include Credential): Dr. Cam Toney MD Scribe Attestation: I, Guerline Zambrano scribed for Dr. Cam Toney MD on 12/29/18 at 2054. Scribe Documentation Reviewed: Yes Provider Attestation: The documentation as recorded by the Guerline newell accurately reflects the service I personally performed and the decisions made by me, Dr. Cam Toney MD Status of [place] Document: Viewed
[2018-12-29 13:29] LABS: ABS Basophils 0.1 10^3/ul (0-0.2); ABS Lymphocytes 0.6 10^3/ul (1.0-4.8); ABS Monocytes 0.4 10^3/ul (0-0.8); ABS Neutrophils 9.9 10^3/ul (1.5-7.7); Eosinophil % 0.1 %; Hematocrit 39 % (35-47); Hemoglobin 12.7 g/dL (12.0-16.0); Lymphocyte % 5.2 %; Mean Corpuscular HGB Conc 32 g/dL (31-36); Mean Corpuscular Hemoglobin 30 pg (27-31); Mean Corpuscular Volume 94 fL (80-97); Mean Platelet Volume 7.6 fL (7.4-10.4); Nucleated Red Blood Cells % 0.1; Platelet Count 298 10^3/uL (150-450); Red Blood Count 4.19 10^6 /uL (3.70-4.87); Red Cell Distribution Width 15 % (10-15)
[2018-12-29] MEDS ORDERED: Albuterol/Ipratropium NEB.SOL* Albuterol 2.5 MG/Ipratropium 0.5 MG 3 ML INH ONE (13:33)
[2018-12-29 13:46] LABS: Albumin 3.4 g/dL (3.2-5.2); Albumin/Globulin Ratio 1.4 (1-3); BUN/Creatinine Ratio 19.8 (8-20); Calcium 9.9 mg/dL (8.6-10.3); EGFR African American 55.3 (>60); EGFR Non-African American 45.7 (>60); Globulin 2.5 g/dL (2-4); Potassium 4.6 mmol/L (3.5-5.0); Total Bilirubin 0.4 mg/dL (0.2-1.0); Total Protein 5.9 g/dL (6.4-8.9)
[2018-12-29 13:47] LABS: Troponin I 0.01 ng/mL (<0.04)
[2018-12-29] MEDS ORDERED: traMADol TAB* 50 MG PO ONE (17:19)
[2018-12-29] MEDS ORDERED: oxyCODONE/Acetamin 5/325 MG* TAB PO ONE (18:17)
[2018-12-29 20:29] VITALS: BP 145/60
== END 2018-12-29 20:27 | disposition home or self-care (01) ==
LOC: ED 12:54
DX: S22.050A Wedge compression fracture of T5-T6 vertebra, initial encounter for closed fracture (principal); M47.896 Other spondylosis, lumbar region; E04.1 Nontoxic single thyroid nodule; M85.88 Other specified disorders of bone density and structure, other site; M51.36 Other intervertebral disc degeneration, lumbar region; X58.XXXA Exposure to other specified factors, initial encounter; Y92.9 Unspecified place or not applicable; I34.1 Nonrheumatic mitral (valve) prolapse; J44.9 Chronic obstructive pulmonary disease, unspecified; K21.9 Gastro-esophageal reflux disease without esophagitis; F03.90 Unspecified dementia, unspecified severity, without behavioral disturbance, psychotic disturbance, mood disturbance, and anxiety; F41.9 Anxiety disorder, unspecified; F32.9 Major depressive disorder, single episode, unspecified; Z87.891 Personal history of nicotine dependence; Z96.659 Presence of unspecified artificial knee joint; Z90.710 Acquired absence of both cervix and uterus; Z88.1 Allergy status to other antibiotic agents; Z88.0 Allergy status to penicillin; Z88.2 Allergy status to sulfonamides; Z88.8 Allergy status to other drugs, medicaments and biological substances
CPT/HCPCS: 36415; 71046; 72070; 72100; 72125; 72128; 72131; 80053; 84484; 85025; 93005; 99284; A9270-GY

== ENCOUNTER 2019-05-11 14:54 | Inpatient (IN) | payer MEDICARE, OTHER ==
--- OUTSIDE RECORDS SUMMARY | 2019-05-11 15:10 | XMS REPORT | Continuity of Care Document ---
:1945 External Reference #:[id number] Author Name Ronaldo Kan M.D. 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 Problems Provider Date Rheumatoid arthritis [...] Onset: 06/07/2017 current pathological fracture Constipation Ama Orlando, FLOOR PRESS OPERATOR Onset: 06/07/2017 Allergic rhinitis Ama Orlando, FLOOR PRESS OPERATOR Onset: 06/07/2017 Rheumatic fever without heart Ama Orlando, FLOOR PRESS OPERATOR Onset: 06/07/2017 involvement Fibromyalgia Ama Orlando, FLOOR PRESS OPERATOR Onset: 06/07/2017 Gastroesophageal reflux disease Ama Orlando, FLOOR PRESS OPERATOR Onset: 06/07/2017 Malaise and fatigue Ronaldo Kan [...] Former Cigarette Smoker Unknown Smoking Status Reviewed: 04/07/19 Former Cigarette Smoker ETOH Use Denies alcohol use ETOH Use Never used alcohol Tobacco Use Start: Unknown End: Patient is a former pt. quit in 2001. 1 Unknown smoker 1/2 ppd for 38 years Recreational Drug Use Denies Drug Use Exercise Type/Frequency Exercises rarely PT Allergies, Adverse Reactions, Alerts Active Allergies Reaction Severity Comments Date Sulfa Antibiotics 09/16/2016 Amoxicillin upset stomach 09/16/2016 Niacin palpitations 09/16/2016 Erythromycin upset stomach 05/12/2017 Vancomycin 05/12/2017 Medications Active Medications SIG Qnty Indications Ordering Date Provider Rickie-Lax 2 by mouth hs 30tabs Charisse Rubio, 01/06/2019 8.6mg M.D. Tablets Omeprazole 1 by mouth every Unknown 01/05/[address] Swartz 10-15% Apply to affected Unknown 01/05/2019 areas prn for muscle pain Cepacol Sore Throat 1 drop by mouth q2h Unknown 01/05/2019 Lozenge prn Cyclosporine 1 drop in both eyes Unknown 01/05/2019 Emulsion.05% prn Namenda 1 tab by mouth F03.90 [facility] 06/28/2017 5mg Tablets every day SID Crooks Duloxetine HCL 1 by mouth every 30caps F33.0 [facility] 06/17/2017 60mg day SID Crooks Caps DR Cori Kahn 1 tab by mouth 20tabs Ronaldo Kan, 06/07/2017 4mg every 6 hours as M.D. Tablets Dispers needed nausea Loperamide HCL take one capsule by 100caps Ronaldo Kan, 06/07/2017 2mg mouth every 4 hours M.D. Capsules as needed for diarrhea. Duoneb 1 unit nebl every 6 540ml J44.9 [facility] hours as needed M.D. 0.5-2.5(3)mg/3ML Solution Docusate Sodium Take two tabs by 60tabs K59.00 Ronaldo Kan, 06/07/2017 100mg mouth qd M.D. Tablets Albuterol Sulfate 1 unit nebl every 6 300units R06.02 Ronaldo Kan, 06/07 hours as needed M.D. (2.5mg/3ML) 0.083% Nebulizer Oxycodone HCL 1 by mouth every 6 [facility]2017 10mg hours DX: pain; M.D. Tablets hold for lethargy Systane 1 drop each eye 30ml Ronaldo Kan, 06/07/2017 0.4-0.3% twice a day M.D. Solution Saline Nasal [place] 2 sprays to both 44ml Ronaldo Loreta, 06/07/2017 nares twicw a day. M.D. 0.65% Solution Prolia 60 mg SQ q 6mon, 60mg M19.90 Ronaldo Kan, 06/07/2017 60mg/ml call provider with M.D. Solution ca+ level before administering. Incruse Ellipta inhale one puff by 30units J44.9 [facility] 06/07/2017 mouth every morning SID Crooks 62.5mcg/Inh Aerosol Fluticasone 1 sprays each 16units J30.9 [facility] 06/07/2017 Propionate nostril qd. SID Crooks 50mcg/Act Suspension Atorvastatin Calcium 1 by mouth in 90tabs E78.5 Ronaldo Kan, 06/07/2017 evening M.D. 10mg Tablets Oxygen please use o2 at 1units R09.02 Adelina Isabella, 05/20/2017 Misc 2l/min during MD exertion, pls provide pt with portable o2 concentrator Folic Acid take one 90tabs D52.9 Ronaldo Kan, 09/16/2016 1mg capsule/tablet M.D. Tablets daily by mouth Benzonatate take one or two Unknown 100mg capsules every 8 Capsules hours as needed for cough. Morphine Sulfate ER Unknown 30mg Tablets ER Seroquel take 1 by mouth at Unknown 25mg Tablets bedtime Prednisone 1.5 tablet po one Unknown 10mg time a day for Ra Tablets Nitroglycerin 1 sl q5mins x3 as Unknown 0.4mg needed for chest Tablets Sub pain Aspercreme Lidocaine Apply to R. Unknown shoulder every 24 4% Patches hrs as needed for pain (on for 12hrs/off for 12 hrs) Symbicort 2 puff twice a day J44.9 Unknown 160-4.5mcg/Act Aerosol Restasis Multidose 1 drop in both eyes Unknown every morning and 0.05% Emulsion evening. Oyster Shell Calcium every other day M19.90 Unknown 500/D 500-200 Tablets Maalox Advanced 30 milliliters Unknown Maximum Strength every 4 hours as needed indigestion [id number]/5ML Suspension Ipratropium [place] 1 vial in nebulizer Unknown every 6 hrs as 0.02% Solution needed for SOB. Buspirone HCL 2 tab bid F33.0 Unknown 5mg Tablets Wellbutrin XL 1 by mouth every 90tabs F33.0 Unknown 300mg day Tablets ER 24HR Aricept 1 by mouth every F03.90 Unknown 10mg Tablets day Acetaminophen 2 tablets by mouth Unknown 500mg tid as needed for Tablets pain/fever Medications Administered in Office Medication SIG Qnty Indications Ordering Provider Date Depomedrol 40MG Hola Covington MD 07/29/2017 Injection Immunizations CPT Code Status Date Vaccine Lot # [id number] Given 03/23/2013 Pneumonia Vaccine [id number] Given 12/28/2003 Pneumococcal Conjugate Vaccine 13 Valent For Intramuscular Use Vital Signs Date Vital Result Comment 04/07/2019 12:05pm Height 62.25 inches 5'2.25" Heart Rate 92 /min BP Systolic Sitting 112 mmHg BP Diastolic Sitting 68 mmHg Body Temperature 97.6 F O2 % BldC Oximetry 94 % 02/28/2019 10:04am Height 62.25 inches 5'2.25" Weight 102.00 lb w/ shoes Heart Rate 96 /min BP Systolic Sitting 108 mmHg BP Diastolic Sitting 67 mmHg BMI (Body Mass Index) 18.5 kg/m2 Results Description No Information Available Procedures Date Code Description Status 11/22/2018 39664 EKG Tracing & Interpretation Completed 09/18/2016 [id number] Bone Mineral Density Test Completed Medical Devices Description No Information Available Encounters Type Date Location Provider Dx Diagnosis Office Visit 02/28/2019 [place] [facility] and [place] Guerrero MD E04.1 Nontoxic single 10:00a Endocrinology of Assistant [employer] thyroid nodule M81.0 Age-related osteoporosis w/o current pathological fracture Office Visit 02/16/2019 [facility] Leilani Deal, K21.9 Gastro- esophageal 8:00a FLOOR PRESS OPERATOR reflux disease without esophagitis F03.90 Unspecified dementia without behavioral disturbance J44.9 Chronic obstructive pulmonary disease, unspecified M06.9 Rheumatoid arthritis, unspecified S22.050D Wedge comprsn fx T5-T6 vertebra, subs for fx w routn heal E78.5 Hyperlipidemia, unspecified E55.9 Vitamin D deficiency, unspecified Office Visit 01/20/2019 [facility] Leilani Deal, G89.29 Other chronic 9:15a FLOOR PRESS OPERATOR pain Office Visit 01/06/2019 [facility] Beata Maldonado, S22.050D Wedge comprsn fx 10:45a D.O. T5-T6 vertebra, subs for fx w routn heal Office Visit 01/06/2019 [place] Charisse Rubio, R07.9 Chest pain, 11:00a Cardiology Of M.D. unspecified [place] [facility] [place] [facility] [place].02 Shortness of breath M06.9 Rheumatoid arthritis, unspecified J44.9 Chronic obstructive pulmonary disease, unspecified Office Visit 01/02/2019 9:00a [place] Cesar Crooks, S22.050D Wedge comprsn fx FLOOR PRESS OPERATOR T5-T6 vertebra, subs for fx w routn heal E04.1 Nontoxic single thyroid nodule Office Visit 12/26/2018 9:30a [facility] Aleena Z01.818 Encounter for bradley Crooks NP preprocedural examination F03.90 Unspecified dementia without behavioral disturbance R01.1 Cardiac murmur, unspecified K21.9 Gastro-esophageal reflux disease without esophagitis G89.29 Other chronic pain M06.9 Rheumatoid arthritis, unspecified J44.9 Chronic obstructive pulmonary disease, unspecified F33.9 Major depressive disorder, recurrent, unspecified Office Visit 12/14/2018 9:45a [facility] Beata Maldonado, F33.9 Major depressive D.O. disorder, recurrent, unspecified J44.9 Chronic obstructive pulmonary disease, unspecified M06.9 Rheumatoid arthritis, unspecified G89.29 Other chronic pain K21.9 Gastro-esophageal reflux disease without esophagitis F03.90 Unspecified dementia without behavioral disturbance Office Visit 2018 8:30a [facility] Aleena Crooks, J06.9 Acute upper FLOOR PRESS OPERATOR respiratory infection, unspecified K21.9 Gastro-esophageal reflux disease without esophagitis Office Visit 11/30/2018 10:30a [facility] Beata G89.29 Other chronic Joel, D.O. 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 R06.02 Shortness of breath M06.9 Rheumatoid arthritis, unspecified Office Visit 10/19/2018 8:30a [facility] Vickie Sanchez, F33.9 Major depressive PA disorder, recurrent, unspecified R41.0 Disorientation, unspecified M06.9 Rheumatoid arthritis, unspecified J44.9 Chronic obstructive pulmonary disease, unspecified Z79.52 prison (current) use of systemic steroids F33.0 Major depressive disorder, recurrent, mild K21.9 Gastro-esophageal reflux disease without esophagitis Office Visit 10/06/2018 8:30a [place] Cesar Sanchez, M06.9 Rheumatoid PA arthritis, unspecified M25.512 Pain in left shoulder Z79.52 prison (current) use of systemic steroids K21.9 Gastro-esophageal reflux disease without esophagitis Assessments Date Code Description Provider 04/07/2019 M06.9 Rheumatoid arthritis, unspecified Ronaldo Kan M.D. 04/07/2019 S22.050D Wedge compression fracture of T5-T6 Ronaldo Kan M.D. vertebra, subsequent encounter for fracture with routine healing 04/07/2019 M81.0 Age-related osteoporosis without current Ronaldo Kan M.D. pathological fracture 04/07/2019 Z79.899 Other moth exterminator (current) drug therapy Ronaldo Kan M.D. 04/07/2019 G89.29 Other chronic pain Ronaldo Kan M.D. 04/07/2019 E55.9 Vitamin D deficiency, unspecified Ronaldo Kan M.D. 04/07/2019 M54.5 Low back pain Ronaldo Kan M.D. 04/07/2019 M25.559 Pain in unspecified hip Ronaldo Kan M.D. 02/28/2019 E04.1 Nontoxic single thyroid nodule [place] Guerrero MD 02/28/2019 M81.0 Age-related osteoporosis without current [place] Guerrero MD pathological fracture 02/16/2019 K21.9 Gastro-esophageal reflux disease without Leilani Deal NP esophagitis 02/16/2019 F03.90 Unspecified dementia without behavioral Leilani Deal NP disturbance 02/16/2019 J44.9 Chronic obstructive pulmonary disease, Leilani Deal NP unspecified 02/16/2019 M06.9 Rheumatoid arthritis, unspecified Leilani Deal NP 02/16/2019 S22.050D Wedge compression fracture of T5-T6 Leilani R.Cruz, FLOOR PRESS OPERATOR vertebra, subsequent encounter for fracture with routine healing 02/16/2019 E78.5 Hyperlipidemia, unspecified Leilani Say, FLOOR PRESS OPERATOR 02/16/2019 E55.9 Vitamin D deficiency, unspecified Leilani Say, FLOOR PRESS OPERATOR 01/20/2019 G89.29 Other chronic pain Leilani AckermanBrandy, FLOOR PRESS OPERATOR 01/06/2019 S22.050D Wedge compression fracture of T5-T6 Beata Maldonado, D.O. vertebra, subsequent encounter for fracture with routine healing 01/06/2019 R07.9 Chest pain, unspecified Charisse Rubio M.D. 01/06/2019 R06.02 Shortness of breath Charisse Rubio M.D. 01/06/2019 M06.9 Rheumatoid arthritis, unspecified Charisse Rubio M.D. 01/06/2019 J44.9 Chronic obstructive pulmonary disease, Charisse Rubio M.D. unspecified 01/02/2019 S22.050D Wedge compression fracture of T5-T6 Aleena [place], FLOOR PRESS OPERATOR vertebra, subsequent encounter for fracture with routine healing 01/02/2019 E04.1 Nontoxic single thyroid nodule Aleena Touchton, FLOOR PRESS OPERATOR 12/26/2018 Z01.818 Encounter for other preprocedural Aleena Touchton, FLOOR PRESS OPERATOR examination 12/26/2018 F03.90 Unspecified dementia without behavioral Aleena Touchton, FLOOR PRESS OPERATOR disturbance 12/26/2018 R01.1 Cardiac murmur, unspecified Aleena Touchton, FLOOR PRESS OPERATOR 12/26/2018 K21.9 Gastro-esophageal reflux disease without Aleena Touchton, FLOOR PRESS OPERATOR esophagitis 12/26/2018 G89.29 Other chronic pain Aleena Touchton, FLOOR PRESS OPERATOR 12/26/2018 M06.9 Rheumatoid arthritis, unspecified Aleena Touchton, FLOOR PRESS OPERATOR 12/26/2018 J44.9 Chronic obstructive pulmonary disease, Aleena Touchton, FLOOR PRESS OPERATOR unspecified 12/26/2018 F33.9 Major depressive disorder, recurrent, Aleena Touchton, FLOOR PRESS OPERATOR unspecified 12/14/2018 F33.9 Major depressive disorder, recurrent, Beata Maldonado, D.O. unspecified 12/14/2018 J44.9 Chronic obstructive pulmonary disease, Beata Maldonado, D.O. unspecified 12/14/2018 M06.9 Rheumatoid arthritis, unspecified Beata Joel, D.O. 12/14/2018 G89.29 Other chronic pain Beata Maldonado, D.O. 12/14/2018 K21.9 Gastro-esophageal reflux disease without Beataashely Galindor, D.O. esophagitis 12/14/2018 F03.90 Unspecified dementia without behavioral Beata Maldonado, D.O. disturbance 2018 J06.9 Acute upper respiratory infection, Aleena Crooks, FLOOR PRESS OPERATOR unspecified 2018 K21.9 Gastro-esophageal reflux disease without Aleena Touchton, FLOOR PRESS OPERATOR esophagitis 11/30/2018 G89.29 Other chronic pain Beata Joel, D.O. 11/22/2018 R01.1 Cardiac murmur, unspecified Charisse Rubio M.D. 11/22/2018 R06.02 Shortness of breath Charisse Rubio M.D. 11/22/2018 M06.9 Rheumatoid arthritis, unspecified Charisse Rubio M.D. 10/19/2018 F33.9 Major depressive disorder, recurrent, Vickie Sundman, PA unspecified 10/19/2018 R41.0 Disorientation, unspecified Vickie Sundman, PA 10/19/2018 M06.9 Rheumatoid arthritis, unspecified Vickie Sundman, PA 10/19/2018 J44.9 Chronic obstructive pulmonary disease, Vickie Sundman, PA unspecified 10/19/2018 Z79.52 moth exterminator (current) use of systemic steroids Vickie Sundman, PA 10/19/2018 F33.0 Major depressive disorder, recurrent, mild Vickie Sundman, PA 10/19/2018 K21.9 Gastro-esophageal reflux disease without Vickie Sundman, PA esophagitis 10/06/2018 M06.9 Rheumatoid arthritis, unspecified Vickie Sundman, PA 10/06/2018 M25.512 Pain in left shoulder Vickie Sundman, PA 10/06/2018 Z79.52 prison (current) use of systemic steroids Vickie Sundman, PA 10/06/2018 K21.9 Gastro-esophageal reflux disease without Vickie Sundman, PA esophagitis Plan of Treatment Future Appointment(s):06/07/2019 11:00 am - Ronaldo Kan M.D. [facility]04/07/2019 - Ronaldo Kan M.D.M06.9 Rheumatoid arthritis, unspecifiedNew Labs:C Reactive Protein, Ordered: 04/07/19Erythrocyte Sed Rate, Ordered: 04/07/19Rheumatoid Factor, Ordered: 04/07/19Cyclic Citrullinated Pep Igg, Ordered: 04/07/1922.050D Wedge compression fracture of T5-T6 vertebra, subsequent encounter for fracture with routine zwqatlsH41.0 Age-related osteoporosis without current pathological fractureNew Labs:Protein Electrophoresis, Ordered: 04/07/19Vitamin D Total 25(Oh), Ordered: Z79.899 Other moth exterminator (current) drug therapyNew Labs:CBC Auto Diff, Ordered : 04/07/19Comp Metabolic Panel, Ordered: 04/07/19Quantiferon-TB Gold Plus, Ordered: 04/07/19G89.29 Other chronic painNew Labs:TSH (Thyroid Stim Horm), Ordered: 04/07/19Follow up:Follow up in 6 to 8 weeks or sooner if atxxqsM58.9 Vitamin D deficiency, zydkrfmlvqnB88.5 Low back painM25.559 Pain in unspecified hipFollow up:Follow up in 6 to 8 weeks Functional Status Description No Information Available Mental Status Description No Information Available Referrals Description No Information Available
[2019-05-11] MEDS ORDERED: Albuterol HFA INHALER* 8 gm MDI INH ONE (15:16)
--- NOTE | 2019-05-11 15:32 | ED ---
Respiratory - HPI Summary HPI Summary: 73 year old F presenting to [facility] with a chief complaint of intermittent shortness of breath since 2 months ago, worse since the last couple of days, especially today. Patient reports a sore throat 5 days ago. Patient denies any fever, vomiting, diarrhea, chest pain, or leg swelling. She has not been in contact with anyone who has or is quarantined for COVID-19. The patient has a history of COPD and rheumatoid arthritis. She is a former smoker and denies an active history of alcohol or recreational drug use. She lives at [facility]. Medication list reviewed. Allergy list reviewed. Home Medications Medication Instructions Recorded Confirmed Type Atorvastatin* [Lipitor 10 MG*] 10 mg PO BEDTIME 06/10/17 04/18/19 History Budesonide/Formote 160/4.5(NF) 2 puff INH BID 06/10/17 04/18/19 History [Symbicort 160/4.5 (NF)] Acetaminophen [Tylenol Extra 1,000 mg PO TID 06/30/17 04/18/19 History Strength] Folic Acid TAB* [Folvite TAB*] 1 mg PO QAM 06/30/17 04/18/19 History predniSONE 20 mg TAB [Deltasone 20 15 mg PO QAM 10/10/17 04/18/19 History MG TAB*] DULoxetine DR CAP* [Cymbalta CAP*] 60 mg PO QAM 06/17/18 04/18/19 History Docusate CAP* [Colace Cap*] 200 mg PO QAM 06/17/18 04/18/19 History Donepezil TAB* [Aricept 5 MG TAB*] 10 mg PO BEDTIME 06/17/18 04/18/19 History Memantine TAB* [Namenda TAB*] 5 mg PO QAM 06/17/18 04/18/19 History Methyl Salicylate/Menthol [Bengay 1 cre TOPICAL BID 06/17/18 04/18/19 History Greaseless] Senna TAB 8.6 mg* [Senokot TAB*] 2 tab PO BEDTIME 06/17/18 04/18/19 History busPIRone TAB* [Buspar TAB*] 10 mg PO TID 06/17/18 04/18/19 History Albuterol/Ipratropium NEB.RAY* 1 neb INH Q4H PRN 12/27/18 04/18/19 History [Duoneb (Albuterol 2.5 MG/Ipratropium 0.5 MG)] Calcium/Vitamin D TAB 250/125* 250 mg PO EVERY OTHER DAY 04/18/19 04/18/19 History [Oscal D TAB 250/125*] Denosumab [Prolia] 1 syringe IM SEE INSTRUCTIONS 04/18/19 04/18/19 History Famotidine TAB* [Pepcid 20 MG TAB*] 20 mg PO BEDTIME 04/18/19 04/18/19 History Morphine Sulfate [Morphine Sulfate 30 mg PO BID 04/18/19 04/18/19 History ER] QUEtiapine TAB* [Seroquel 25 MG 25 mg PO BEDTIME 04/18/19 04/18/19 History TAB*] buPROPion HCl [Wellbutrin Sr] 150 mg PO QAM 04/18/19 04/18/19 History Carboxymethylcellulose Sodium 2 drop BOTH EYES BEDTIME 05/11/19 05/11/19 History [Refresh Tears] Levofloxacin TAB* [Levaquin TAB*] 750 mg PO DAILY 05/11/19 05/11/19 History Umeclidinium 62.5 MDI(NF) [Incruse 62.5 mcg INH DAILY 05/11/19 05/11/19 History ELLIPTA MDI (NF)] guaiFENesin [Guaifenesin] 400 mg PO Q12H 05/11/19 05/11/19 History - History of Current Complaint Stated Complaint: SOB/CONGESTED /COUGH PER EMS Time Seen by Provider: 05/11/19 15:05 Hx Obtained From: Patient Onset/Duration: Lasting Weeks, Still Present Associated Signs and Symptoms: Negative - Fever, vomiting, diarrhea, chest pain , leg swelling - Allergy/Home Medications Allergies/Adverse Reactions: Allergies Allergy/AdvReac Type Severity Reaction Status Date / Time Sulfa (Sulfonamide Allergy Severe GI Upset Verified 04/18/19 11:08 Antibiotics) amoxicillin Allergy Intermediate GI Upset Verified 04/18/19 11:08 clavulanic acid Allergy Intermediate GI Upset Verified 04/18/19 11:08 [From Augmentin] niacin Allergy Unknown Unknown Verified 04/18/19 11:08 Reaction Details vancomycin Allergy Unknown Unknown Verified 04/18/19 11:08 Reaction Details erythromycin base Allergy Unknown Verified 04/18/19 11:08 Reaction Details sulfacetamide Allergy Unknown Verified 04/18/19 11:08 Reaction Details Home Medications: Home Medications Atorvastatin* [Lipitor 10 MG*] 10 mg PO BEDTIME 06/10/17 [History Confirmed ] Budesonide/Formote 160/4.5(NF) [Symbicort 160/4.5 (NF)] 2 puff INH BID 06/10/17 [History Confirmed 05/11/19] Acetaminophen [Tylenol Extra Strength] 1,000 mg PO TID 06/30/17 [History Confirmed 05/11/19] Folic Acid TAB* [Folvite TAB*] 1 mg PO QAM 06/30/17 [History Confirmed 05/11/19] predniSONE 20 mg TAB [Deltasone 20 MG TAB*] 15 mg PO QAM 10/10/17 [History Confirmed 05/11/19] DULoxetine DR CAP* [Cymbalta CAP*] 60 mg PO QAM 06/17/18 [History Confirmed ] Docusate CAP* [Colace Cap*] 200 mg PO QAM 06/17/18 [History Confirmed 05/11/19] Donepezil TAB* [Aricept 5 MG TAB*] 10 mg PO BEDTIME 06/17/18 [History Confirmed 05/11/19] Memantine TAB* [Namenda TAB*] 5 mg PO QAM 06/17/18 [History Confirmed 05/11/19] Methyl Salicylate/Menthol [Bengay Greaseless] 1 cre TOPICAL BID 06/17/18 [ History Confirmed 05/11/19] Senna TAB 8.6 mg* [Senokot TAB*] 2 tab PO BEDTIME 06/17/18 [History Confirmed ] busPIRone TAB* [Buspar TAB*] 10 mg PO TID 06/17/18 [History Confirmed 05/11/19] Albuterol/Ipratropium NEB.RAY* [Duoneb (Albuterol 2.5 MG/Ipratropium 0.5 MG)] 3 ml INH Q4H PRN 12/27/18 [History Confirmed 05/11/19] Calcium/Vitamin D TAB 250/125* [Oscal D TAB 250/125*] 500 mg PO EVERY OTHER DAY 04/18/19 [History Confirmed 05/11/19] Denosumab [Prolia] 60 mg SUBCUT .Q6 MONTHS 04/18/19 [History Confirmed 05/11/19] Famotidine TAB* [Pepcid 20 MG TAB*] 20 mg PO BEDTIME 04/18/19 [History Confirmed 05/11/19] Morphine Sulfate [Morphine Sulfate ER] 30 mg PO BID 04/18/19 [History Confirmed 05/11/19] QUEtiapine TAB* [Seroquel 25 MG TAB*] 25 mg PO BEDTIME 04/18/19 [History Confirmed 05/11/19] buPROPion HCl [Wellbutrin Sr] 150 mg PO QAM 04/18/19 [History Confirmed 05/11/19 ] Carboxymethylcellulose Sodium [Refresh Tears] 2 drop BOTH EYES BEDTIME 05/11/19 [History Confirmed 05/11/19] Levofloxacin TAB* [Levaquin TAB*] 750 mg PO DAILY 05/11/19 [History Confirmed ] Umeclidinium 62.5 MDI(NF) [Incruse ELLIPTA MDI (NF)] 62.5 mcg INH DAILY [History Confirmed 05/11/19] guaiFENesin [Guaifenesin] 400 mg PO Q12H 05/11/19 [History Confirmed 05/11/19] PMH/Surg Hx/FS Hx/Imm Hx Endocrine/Hematology History: Denies: Hx Anticoagulant Therapy, Hx Diabetes Cardiovascular History: Reports: Hx Valvular Heart Disease - Mitral valve prolapse Denies: Hx Congestive Heart Failure, Hx Hypertension, Other Cardiovascular Problems/Disorders Respiratory History: Reports: Hx Chronic Obstructive Pulmonary Disease (COPD) Denies: Other Respiratory Problems/Disorders GI History: Reports: Hx Gastroesophageal Reflux Disease, Hx Irritable Bowel Denies: Other GI Disorders History: Denies: Hx Renal Disease, Other Problems/Disorders - Patient wears pull ups, but is usually continent Musculoskeletal History: Reports: Hx Arthritis - Rheumatoid Arthritis, Hx Rheumatoid Arthritis, Hx Orthopedic Injury - hands fx repairs, Hx Osteoporosis, Other Musculoskeletal History - Osteoporosis, hx of shoulder fracture Sensory History: Reports: Hx Cataracts - Cataract Right Eye, Hx Contacts or Glasses - Glasses, Hx Macular Degeneration, Hx Hearing Problem - hard hearing Denies: Hx Hearing Aid Opthamlomology History: Reports: Hx Cataracts - Cataract Right Eye, Hx Contacts or Glasses - Glasses, Hx Macular Degeneration Neurological History: Reports: Hx Dementia Denies: Other Neuro Impairments/Disorders Psychiatric History: Reports: Hx Anxiety, Hx Depression - Surgical History Surgical History: Yes Surgery Procedure, Year, and Place: Hysterectomy, tonsillectomy, knee replacement, bilataral hand fx repairs. Hx Anesthesia Reactions: No Infectious Disease History: Denies: Traveled Outside the [place] in Last 30 Days - Family History Known Family History: Positive: Cardiac Disease, Other - [place] Negative: Diabetes - Social History Alcohol Use: None Hx Substance Use: No Substance Use Type: Reports: None Hx Tobacco Use: Yes Smoking Status (MU): Former Smoker Review of Systems Negative: Fever Positive: Sore Throat Negative: Chest Pain Positive: Shortness Of Breath Negative: Vomiting, Diarrhea Musculoskeletal: Negative - Leg swelling All Other Systems Reviewed And Are Negative: Yes Physical Exam - Summary Physical Exam Summary: Constitutional: Well-developed, Well-nourished, Alert. (-) Distressed Skin: Warm, Dry HENT: Normocephalic; Atraumatic Eyes: Conjunctiva normal Neck: Musculoskeletal ROM normal neck. (-) JVD, (-) Stridor, (-) Tracheal deviation Cardio: Rhythm regular, rate normal, Heart sounds normal; Intact distal pulses; Radial pulses are 2+ and symmetric. (-) Murmur Pulmonary/Chest wall: Very wet cough, speaking in shortened sentences, limited lung exam secondary to coughing, oxygen saturation is 92% on room air. Abd: Soft, (-) tenderness, (-) Distension, (-) Guarding, (-) Rebound Musculoskeletal: (-) Edema Lymph: (-) Cervical adenopathy Neuro: Alert, Oriented x3 Psych: Mood and affect Normal Triage Information Reviewed: Yes Vital Signs Reviewed: Yes Procedures - Sedation Patient Received Moderate/Deep Sedation with Procedure: No Diagnostics - Laboratory Result Diagrams: 05/11/19 15:50 05/11/19 15:50 Lab Statement: Any lab studies that have been ordered have been reviewed, and results considered in the medical decision making process. - Radiology Chest x-ray Radiology Interpretation Completed By: Radiologist Summary of Radiographic Findings: NO ACTIVE CARDIOPULMONARY DISEASE IS NOTED. ED physician has reviewed this report. - EKG 15:30 Cardiac Rate: NL - 87 BPM EKG Rhythm: Sinus Rhythm Summary of EKG Findings: No ischemic changes. ED physician has reviewed and interpreted this EKG. Re-Evaluation - Re-Evaluation First Eval Re-Evaluation Time: 17:55 Comment: The patient feels okay. Disposition - Course Course Of Treatment: Patient is here with worsening shortness of breath and cough. Patient does have a history of asthma and rheumatoid arthritis. Patient has an obvious wet cough and is borderline hypoxic at points. Patient had a chest x-ray which showed no change from baseline. Patient had blood performed showed a CRP of 230. Patient does have an elevated CRP at baseline but this is the highest one yet. Patient had negative influenza swab. Given patient's history, patient is treated with Rocephin and azithromycin. Patient was tested for Covid 19. After being admitted, patient's daughter did call here and states she is a nurse in the emergency Department at [employer] and has had similar symptoms. - Diagnoses Provider Diagnoses: Elevated C-reactive protein (CRP), Cough, Sore throat, Pneumonia - Physician Notifications Discussed Care Of Patient With: Beata Maldonado Time Discussed With Above Provider: 17:57 Instructed by Provider To: Other - Discussed with Dr. Maldonado who accepts the patient for admission. Discharge ED - Sign-Out/Discharge Documenting (check all that apply): Patient Departure - Discharge Plan Condition: Stable Disposition: ADMITTED TO [facility] Referrals: Heather Adkins, ORTHODONTIST VICE PRESIDENT [Primary Care Provider] - - Billing Disposition and Condition Condition: STABLE Disposition: Admitted to [facility] - Attestation Statements Document Initiated by Stanibe: Yes Documenting Stanibbernabe: Aneta Pete Provider For Whom Stanislav is Documenting (Include Credential): Jose Alvarez MD Scribe Attestation: Aneta Mkceon, scribed for Jose Alvarez MD on 05/11/19 at 1841. Scribe Documentation Reviewed: Yes Provider Attestation: The documentation as recorded by the Aneta newell accurately reflects the service I personally performed and the decisions made by me, Jose Alvarez MD Status of Scribe Document: Viewed
[2019-05-11 16:09] LABS: ABS Lymphocytes 0.3 10^3/ul (1.0-4.8); ABS Monocytes 0.5 10^3/ul (0-0.8); ABS Neutrophils 8.5 10^3/ul (1.5-7.7); Hematocrit 37 % (35-47); Hemoglobin 12.2 g/dL (12.0-16.0); Lymphocyte % 2.8 %; Mean Corpuscular HGB Conc 34 g/dL (31-36); Mean Corpuscular Hemoglobin 31 pg (27-31); Mean Corpuscular Volume 92 fL (80-97); Mean Platelet Volume 8.1 fL (7.4-10.4); Platelet Count 242 10^3/uL (150-450); Red Blood Count 3.95 10^6 /uL (3.70-4.87); Red Cell Distribution Width 16 % (10-15); White Blood Count 9.3 10^3/uL (3.5-10.8)
[2019-05-11 16:28] LABS: ALT 192 U/L (7-52); AST 21 U/L (13-39); Albumin 3.4 g/dL (3.2-5.2); Alkaline Phosphatase 176 U/L (34-104); Anion Gap 8 mmol/L (2-11); Blood Urea Nitrogen 36 mg/dL (6-24); C Reactive Protein 230.13 mg/L (<8.01); CO2 Carbon Dioxide 24 mmol/L (22-32); Calcium 9.7 mg/dL (8.6-10.3); Chloride 106 mmol/L (101-111); EGFR African American 74.1 (>60); EGFR Non-African American 61.2 (>60); Globulin 3.5 g/dL (2-4); Glucose 94 mg/dL (70-100); Potassium 4.8 mmol/L (3.5-5.0); Sodium 138 mmol/L (135-145); Total Protein 6.9 g/dL (6.4-8.9)
[2019-05-11 16:30] LABS: Troponin I 0.03 ng/mL (<0.03)
[2019-05-11 16:46] LABS: Influenza A Molecular Negative (Negative); Influenza B Molecular Negative (Negative)
[2019-05-11] MEDS ORDERED: cefTRIAXone(*) 1 GM in NS 0.9% 50 ML* 50 ML IVPB ONE (17:49)
[2019-05-11] MEDS ORDERED: Azithromycin 500 mg/250 ml NS 500 MG/250 ML BAG IVPB ONE (17:49)
[2019-05-11] MEDS ORDERED: Ondansetron INJ* 2 MG/ML VIAL IV ONE (18:42)
[2019-05-11] MEDS ORDERED: oxyCODONE TAB* 5 MG TAB PO ONE (18:43)
[2019-05-11 18:45] LABS: Troponin I 0.03 ng/mL (<0.03)
[2019-05-11] MEDS ORDERED: Al Hydrox/Mg Hydrox/Simet LIQ* 30 ML UDC PO PRN (19:15)
[2019-05-11] MEDS ORDERED: Ondansetron INJ* 2 MG/ML VIAL IV PRN (19:15)
[2019-05-11] MEDS ORDERED: NS 0.9% 1000 ML** 1,000 ML IV SCH (19:15)
[2019-05-11] MEDS ORDERED: Acetaminophen TAB* 325 MG PO PRN (19:15)
[2019-05-11] MEDS ORDERED: Senna TAB 8.6 mg* TAB PO PRN (19:15)
[2019-05-11] MEDS ORDERED: Lorazepam PYXIS KEY PRN (19:47)
[2019-05-11] MEDS ORDERED: LORazepam INJ* 2 MG/ML 1 ML VIAL IV PUSH PRN (19:47)
[2019-05-11] MEDS ORDERED: Lidocaine PATCH 5%* 1 PATCH TRANSDERM PRN (20:07)
[2019-05-11] MEDS ORDERED: Albuterol HFA INHALER* 8 gm MDI INH PRN (21:45)
[2019-05-11] MEDS: Mometasone/Formoter 200/5 MDI INH SCH (22:23)
--- NOTE | 2019-05-11 22:49 | HP ---
ADMISSION HISTORY AND PHYSICAL: DATE OF ADMISSION: 05/11/19 ATTENDING PHYSICIAN WHILE IN THE HOSPITAL: Dr. Ana M Samson * (dictated by NAKIA Gonzalez). PRIMARY CARE PROVIDER: Physician at [facility]. CHIEF COMPLAINT: Sore throat, cough, and shortness of breath. HISTORY OF PRESENT ILLNESS: Melida Gold is a 73-year-old white female with past medical history significant for rheumatoid arthritis, depression, dementia , COPD, IBS, GERD, presents to the emergency department today from [facility] , where she is a senior care resident, due to ongoing shortness of breath and cough. The patient's daughter provides majority of the history as the patient is confused. The patient's daughter, Kimmy Gold, tells me that starting 5 days ago, the patient started experiencing a sore throat, a dry cough and mild shortness of breath and the shortness of breath has been getting progressively worse. Today, while she is in the emergency department, she has a very productive cough. The daughter expresses concerns that she does have a diagnosis of dementia, but is usually quite oriented, but has been more acutely altered in the last 2 to 3 days. Her daughter additionally tells me that she was last able to visit the patient on 05/02/19 and has not visited since that time due to the visitation restrictions due to the the COVID-19 pandemic. The patient's daughter does mention to me that she is an ED nurse employment case manager in [place] and also started having sore throat and a mild cough on Wednesday, 05/06, the same day as the patient. The patient's daughter expresses some frustration as she has been requesting the provider at [facility] to evaluate her. It seems that the provider started the patient on Levaquin today though I am unsure if a chest x-ray was performed. The patient does answer questions appropriately at times, but is obviously confused. She does tell me she has a headache. She tells me she has been having a cough. She tells me she feels short of breath after walking and this is not normal for her. She denies shortness of breath at rest. She denies having a sore throat, but as previously mentioned she has been complaining about it for a total of 5 days to her daughter and she denies fevers, chills, abdominal pain, vomiting diarrhea. She did complain of nausea to the emergency department nurse. PAST MEDICAL HISTORY: 1. Rheumatoid arthritis. 2. Chronic pain, on chronic opiates. 3. Depression. 4. Dementia with baseline orientation x3. 5. COPD without chronic hypoxia. 6. IBS. 7. GERD. 8. Thoracic spine compression fracture after a fall in December 2018. 9. Hyperlipidemia. PAST SURGICAL HISTORY: Tonsillectomy. HOME MEDICATIONS: 1. Albuterol nebulizer solution 3 mL inhaled q.4 hours p.r.n. shortness of breath/wheezing. 2. BuSpar 10 mg p.o. t.i.d. 3. Tylenol 1000 mg p.o. t.i.d. scheduled. 4. Symbicort 2 puffs inhaled b.i.d. 5. Guaifenesin 400 mg p.o. q.12 hours. 6. Morphine sulfate 30 mg p.o. b.i.d. 7. Bengay cream topically b.i.d. 8. Bupropion 150 mg p.o. daily. 9. Incruse Ellipta 62.5 mcg inhaled daily. 10. Seroquel 25 mg p.o. at bedtime. 11. Senna 2 mg p.o. at bedtime. 12. Refresh Tears 2 drops both eyes at bedtime. 13. Prolia 60 mg subcu q.6 months. 14. Prednisone 15 mg p.o. daily. 15. Famotidine 20 mg p.o. daily. 16. Calcium/vitamin D 500 mg p.o. every other day. 17. Memantine 5 mg p.o. daily. 18. Lipitor 10 mg p.o. at bedtime. 19. Levaquin 750 mg p.o. daily (started today at [facility]). 20. Folic acid 1 mg p.o. daily. 21. Duloxetine 60 mg p.o. daily. 22. Donepezil 10 mg p.o. at bedtime. 23. Docusate 200 mg p.o. daily. ALLERGIES: GI upset to SULFA drugs, GI upset to AMOXICILLIN, GI upset to CLAVULANIC ACID, unknown reaction to NIACIN, unknown reaction to VANCOMYCIN, unknown reaction to ERYTHROMYCIN, unknown reaction to SULFACETAMIDE. FAMILY HISTORY: Mother had a history of CHF and her father had a history of dementia. This was obtained from medical records. SOCIAL HISTORY: The patient is a senior care resident of [facility]. She is a previous smoker and quit in 2000. She denies alcohol use and drug use. Her surrogate medical decision maker is her daughter, Kimmy Gold, phone number [phone]. REVIEW OF SYSTEMS: A complete 14-system review of systems was difficult to obtain due to patient's altered mental status, but any obtainable pertinent positives and negatives are above in the HPI. PHYSICAL EXAMINATION GENERAL: A thin elderly white female, lying in hospital bed, appearing uncomfortable, and in minimal distress, tearful at times and quailing on pain at times. VITAL SIGNS: Temperature 99.0 degrees Fahrenheit, pulse 85 beats per minute; highest 101 beats per minute, respiratory rate 17 respirations per minute, oxygen saturation initially 89% on 2 L at one point, blood pressure 148/90. HEENT: Eyes: PERRL. Sclerae anicteric. ENT: Mucous membranes moist. Oropharynx is clear, no exudate or erythema. Tonsils absent. NECK: Supple. Trachea midline. LUNGS: Rhonchorous throughout. No wheezing appreciated even after clearing secretions with cough. Not using accessory muscles to breathe. CARDIO: Regular rate and rhythm without murmurs, or rubs. ABDOMEN: Soft, nontender, nondistended. EXTREMITIES: No clubbing, cyanosis, or edema. Fingers are ulnarly deviated bilaterally. NEURO: The patient is alert and oriented to self only. No focal deficits. SKIN: Warm and dry. DIAGNOSTIC STUDIES/LAB DATA: White blood cell count 9.3, hemoglobin 12.2, hematocrit 37, platelet count 242, absolute lymphocyte 0.3. Sodium 138, potassium 4.8, chloride 106, carbon dioxide 24, anion gap 8, BUN 36, creatinine 0.9, lactic acid 0.9, glucose 94. Total bili 0.9, AST 21, ALT 192, alk phos 176 , troponin 0.03 x2, CRP 230.13, BNP 109. Influenza A and B negative. Chest x-ray: No active cardiopulmonary diseases noted on the impression. Per my read, I do not see any overt consolidations of concern. EKG: Normal sinus rhythm 87 beats per minute. No ST elevations or depressions. Isolated T-wave inversion in V1, normal axis. ASSESSMENT AND PLAN: Melida Gold is a 73-year-old white female with past medical history significant for rheumatoid arthritis, depression, dementia, chronic obstructive pulmonary disease, who presents to the emergency department for shortness of breath, confusion, and cough. The patient will be admitted to OB for: 1. Acute hypoxic respiratory failure. It appears that the patient is short of breath and requiring oxygen. I believe this is secondary to chronic obstructive pulmonary disease exacerbation. The meets testing criteria for COVID -19 and I suspect it is quite possible that this will be positive though this is still pending at this time. I will treat her for community- acquired pneumonia despite chest x-ray without any obvious consolidation, she does have clinical signs of pneumonia. She received ceftriaxone and azithromycin in the emergency department. I will continue this. I will continue treat her for COPD exacerbation with prednisone. She is not really having work of breathing right now, but she does need help getting her sputum up and I will order a flutter valve. I ordered sputum culture and urine antigen for legionella and strep pneumonia as well. I will symptomatically treat her with guaifenesin. I will be continuing home nebulizers. 2. Acute mental status changes. I suspect that this patient is undergoing a metabolic encephalopathy in the setting of acute infection, but I will order a CT of the brain without contrast to rule out any acute abnormalities and this is pending at this time. She is frequently tearful and somewhat agitated and I will order increased dose of her bedtime Seroquel to help with sleeping and p.r.n. Ativan for anxiety or agitation. 3. Chronic pain. I will be continuing the patient's scheduled Tylenol as well as morphine sulfate. I will order p.r.n. oxycodone as well and lidocaine patch p.r.n. 4. Rheumatoid arthritis. The patient takes chronic prednisone and as previously mentioned I will be giving her an increased dose to treat her COPD exacerbation as above. 5. Depression and anxiety. I will continue her on home BuSpar and Duloxetine and bupropion. Depression, I will continue her home donepezil and Memantine. We will provide supportive care and I am increasing her Seroquel in the evening as previously mentioned. 6. Hyperlipidemia. I will be continuing her home Lipitor. 7. Gastroesophageal reflux disease. I will continue her home famotidine. 8. FEN: The patient does appear to be somewhat dry. Due to my concern for the high likelihood of COVID-19, I am avoiding giving her high volume fluids and we will give her continuous 100 cc normal saline per hour. The patient may have a regular unrestricted diet and her electrolytes are within normal limits without the need for repletion. 9. Transaminitis. Her ALT is elevated. This appears to be consistent with patterns of COVID-19, I will trend this tomorrow. At this time, I do not have any concerns for acute GI etiologies. 10. DVT prophylaxis: The patient has a DVT risk score of 2 and I will order Lovenox daily. 11. Code status: The patient is full code. TIME SPENT: Approximately 55 minutes was spent on this admission, approximately half this time was spent at bedside evaluating the patient and discussing the plan of care and obtaining history from the patient's daughter. This case has been reviewed with my attending, Dr. Ana M Samson, and she agrees with this plan of care. NAKIA GONZALEZ [id number]/[facility] #: [id number]
[2019-05-12] MEDS: Enoxaparin(*) 40 MG/0.4 ML SYR SUBCUT SCH ×2 (00:31→22:49)
[2019-05-12] MEDS: Lidocaine Patch REMOVE* 1 NOTE MISC SCH ×2 (00:31→22:49)
[2019-05-12] MEDS: Donepezil TAB* 5 MG PO SCH ×2 (00:33→22:48)
[2019-05-12] MEDS: Famotidine TAB* 20 MG PO SCH ×2 (00:33→22:48)
[2019-05-12] MEDS: Acetaminophen TAB* 325 MG PO SCH ×4 (00:33→23:14)
[2019-05-12] MEDS: Atorvastatin* 10 MG TAB PO SCH ×2 (00:34→22:49)
[2019-05-12] MEDS: Morphine TAB Extended Release (*) 30 MG TAB.ER PO SCH ×3 (00:34→22:49)
[2019-05-12] MEDS: guaiFENesin ER TAB 600 MG PO SCH ×3 (00:34→22:48)
[2019-05-12] MEDS: busPIRone TAB* 10 MG PO SCH ×4 (00:34→22:49)
[2019-05-12] MEDS: QUEtiapine TAB* 25 MG PO SCH ×2 (00:34→22:48)
[2019-05-12 05:17] LABS: ABS Lymphocytes 0.7 10^3/ul (1.0-4.8); ABS Monocytes 0.7 10^3/ul (0-0.8); ABS Neutrophils 5.2 10^3/ul (1.5-7.7); Eosinophil % 0.2 %; Hematocrit 31 % (35-47); Hemoglobin 10.1 g/dL (12.0-16.0); Lymphocyte % 10.5 %; Mean Corpuscular HGB Conc 33 g/dL (31-36); Mean Corpuscular Hemoglobin 31 pg (27-31); Mean Corpuscular Volume 93 fL (80-97); Mean Platelet Volume 7.7 fL (7.4-10.4); Platelet Count 213 10^3/uL (150-450); Red Cell Distribution Width 16 % (10-15); White Blood Count 6.6 10^3/uL (3.5-10.8)
[2019-05-12 05:35] LABS: Albumin 2.7 g/dL (3.2-5.2); BUN/Creatinine Ratio 36.4 (8-20); Calcium 8.5 mg/dL (8.6-10.3); EGFR Non-African American 62.8 (>60); Globulin 2.8 g/dL (2-4); Potassium 4.1 mmol/L (3.5-5.0); Total Bilirubin 0.5 mg/dL (0.2-1.0); Total Protein 5.5 g/dL (6.4-8.9)
[2019-05-12] MEDS: Mometasone/Formoter 200/5 MDI INH SCH ×2 (08:24→19:52)
[2019-05-12] MEDS: SPIRIVA Respimat* (tiotropium) 2.5 mcg/inh Inhaler INH SCH (08:25)
[2019-05-12] MEDS: oxyCODONE/Acetamin 5/325 MG* TAB PO PRN (08:43)
[2019-05-12] MEDS: buPROPion SR TAB.SR* 150 MG PO SCH (08:44)
[2019-05-12] MEDS: DULoxetine DR CAP* 60 MG CAP.DR PO SCH (08:44)
[2019-05-12] MEDS: Azithromycin TAB* 250 MG PO SCH (08:44)
[2019-05-12] MEDS: Folic Acid TAB* 1 MG PO SCH (08:44)
[2019-05-12] MEDS: Memantine TAB* 5 MG PO SCH (08:45)
--- NOTE | 2019-05-12 14:26 | PN ---
Subjective Date of Service: 05/12/19 Interval History: Pt states her breathing feels unchanged from admission and even prior to admission though she is a very poor historian. She has been coughing up scant amounts of sputum. Objective Active Medications: Acetaminophen (Tylenol Tab*) 975 mg PO TID [facility] Last Admin: 05/12/19 08:42 Dose: 975 mg Al Hydrox/Mg Hydrox/Simethicone (Maalox Plus*) 30 ml PO Q6H PRN PRN Reason: INDIGESTION Albuterol (Ventolin Hfa Inhaler*) 2 puff INH Q4H PRN PRN Reason: SOB/WHEEZING Atorvastatin Calcium (Lipitor*) 10 mg PO BEDTIME [facility] Last Admin: 05/12/19 00:34 Dose: 10 mg Azithromycin (Zithromax Tab*) 250 mg PO DAILY [facility] Last Admin: 05/12/19 08:44 Dose: 250 mg Bupropion HCl (Wellbutrin Sr Tab*) 150 mg PO QAM [facility] Last Admin: 05/12/19 08:44 Dose: 150 mg Buspirone HCl (Buspar Tab*) 10 mg PO TID [facility] Last Admin: 05/12/19 08:42 Dose: 10 mg Donepezil HCl (Aricept Tab*) 10 mg PO BEDTIME [facility] Last Admin: 05/12/19 00:33 Dose: 10 mg Duloxetine HCl (Cymbalta Cap*) 60 mg PO QAM [facility] Last Admin: 05/12/19 08:44 Dose: 60 mg Enoxaparin Sodium (Lovenox(*)) 40 mg SUBCUT Q24H [facility] Last Admin: 05/12/19 00:31 Dose: 40 mg Famotidine (Pepcid Tab*) 20 mg PO BEDTIME [facility] Last Admin: 05/12/19 00:33 Dose: 20 mg Folic Acid (Folvite Tab*) 1 mg PO QAM [facility] Last Admin: 05/12/19 08:44 Dose: 1 mg Guaifenesin (Mucinex*) 1,200 mg PO BID [facility] Last Admin: 05/12/19 08:44 Dose: 1,200 mg Sodium Chloride (Ns 0.9% 1000 Ml) 1,000 mls @ 75 mls/hr IV PER RATE [facility] Last Admin: 05/12/19 00:59 Dose: 75 mls/hr Ceftriaxone Sodium 1 gm/ (Sodium Chloride) 50 mls @ 100 mls/hr IVPB Q24H [facility] Lidocaine (Lidoderm 5% Patch*) 1 patch TRANSDERM DAILY PRN PRN Reason: PAIN - MILD Last Admin: 05/12/19 08:42 Dose: 1 patch Lorazepam (Ativan Inj*) 1 mg IV PUSH Q6H PRN PRN Reason: Anxiety/agitation Memantine (Namenda Tab*) 5 mg PO QAM [facility] Last Admin: 05/12/19 08:45 Dose: Not Given Miscellaneous (Ativan Pyxis Alcaraz) 1 ea N/A .ATIVAN IV ALCARAZ PRN PRN Reason: PYXIS ALCARAZ Mometasone Furoate/Formoterol Fumar (Dulera 200/5 Mdi*) 2 puff INH BID [facility]; Protocol Last Admin: 05/12/19 08:24 Dose: 2 puff Morphine Sulfate (Ms Contin(*)) 30 mg PO BID [facility] Last Admin: 05/12/19 08:44 Dose: 30 mg Ondansetron HCl (Zofran Inj*) 4 mg IV Q4H PRN PRN Reason: NAUSEA/VOMITING Last Admin: 05/12/19 00:32 Dose: 4 mg Oxycodone/Acetaminophen (Percocet 5/325 Tab*) 1 tab PO Q4H PRN PRN Reason: PAIN - MODERATE Last Admin: 05/12/19 08:43 Dose: 1 tab Pharmacy Profile Note (Lidocaine Patch Remove*) 1 note N/A 2100 [facility] Last Admin: 05/12/19 00:31 Dose: Not Given Prednisone (Deltasone 50 Mg Tab) 50 mg PO DAILY [facility] Last Admin: 05/12/19 08:44 Dose: 50 mg Quetiapine Fumarate (Seroquel Tab*) 50 mg PO BEDTIME [facility] Last Admin: 05/12/19 00:34 Dose: 50 mg Senna (Senokot 8.6 Mg Tab*) 1 tab PO BID PRN PRN Reason: CONSTIPATION Tiotropium [place] (Spiriva Respimat 2.5 Mcg) 2 puff INH DAILY [facility] Last Admin: 05/12/19 08:25 Dose: 2 puff Vital Signs - 8 hr 05/12/19 05/12/19 05/12/19 06:53 08:43 08:44 Temperature Pulse Rate Respiratory 16 20 20 Rate Blood Pressure (mmHg) O2 Sat by Pulse Oximetry 05/12/19 05/12/19 05/12/19 09:06 09:13 11:02 Temperature 98.0 F Pulse Rate 81 Respiratory 18 20 16 Rate Blood Pressure 115/62 (mmHg) O2 Sat by Pulse 99 Oximetry Oxygen Devices in Use Now: Nasal Cannula Appearance: Elderly female sitting up in bed, gurgling respirations noted, NAD Eyes: No Scleral Icterus Ears/Nose/Mouth/Throat: Mucous Membranes Moist Respiratory: - - gurgling respirations noted, unable to hear lungs sounds over upper airway transmitted sounds Cardiovascular: NL Sounds; No Murmurs; No JVD, RRR, No Edema Abdominal: NL Sounds; No Tenderness; No Distention Extremities: - - obvious joint deformites from RA in hands Skin: - - bruises and scars noted on bilateral legs Neurological: - - alert, poor historian Result Diagrams: 05/12/19 05:07 05/12/19 05:07 Microbiology and Other Data: Microbiology 05/12/19 00:05 Gram Stain - Final Sputum 05/12/19 00:45 Legionella Urinary Antigen - Final Urine Negative Legionella Antigen Streptococcus pneumoniae Ag Screen - Final Negative S. pneumo Antigen Assess/Plan/Problems-Billing Ms Gold is a 73 yo F who has a h/o COPD, RA, chronic pain, depression and dementia who presented to the ER with c/o sore throat cough and SOB and was admitted to treat a COPD exacerbation possibly secondary to pneumonia though she is also being ruled out for COVID-19. - Patient Problems (1) COPD exacerbation Current Visit: Yes Status: Acute Code(s): J44.1 - CHRONIC OBSTRUCTIVE PULMONARY DISEASE W (ACUTE) EXACERBATION SNOMED Code(s): 297201061 Comment: Pt presented with what appeared to be a COPD exacerbation. She is bringing up scant amounts of sputum. Will continue treatment for possible pneumonia with ceftriaxone and azithromycin. As she is on baseline prednisone will continue higher dose prednisone for now and taper as soon as we can. She is being ruled out for COVID-19. (2) CKD (chronic kidney disease) Current Visit: Yes Status: Chronic Code(s): N18.9 - CHRONIC KIDNEY DISEASE, UNSPECIFIED SNOMED Code(s): 957754735 Comment: Stage III. At baseline. Control BP and DM. (3) Depression Current Visit: Yes Status: Chronic Code(s): F32.9 - MAJOR DEPRESSIVE DISORDER, SINGLE EPISODE, UNSPECIFIED SNOMED Code(s): 44428170 Comment: Continue bupropion, buspar, cymbalta, and seroquel at bedtime. Her mood is unchanged from when I last saw her in [facility] (January 2019). (4) Dementia Current Visit: Yes Status: Chronic Code(s): F03.90 - UNSPECIFIED DEMENTIA WITHOUT BEHAVIORAL DISTURBANCE SNOMED Code(s): 66979561 Comment: Continue namenda and aricept. (5) Rheumatoid arthritis Current Visit: Yes Status: Chronic Code(s): M06.9 - RHEUMATOID ARTHRITIS, UNSPECIFIED SNOMED Code(s): 77746838 Comment: Continue prednisone 50mg daily. Will start to taper tomorrow back to her baseline dose. (6) DVT prophylaxis Current Visit: Yes Status: Acute Code(s): SYP5386 - SNOMED Code(s): 083368573 Comment: lovenox (7) Full code status Current Visit: Yes Status: Acute Code(s): Z78.9 - OTHER SPECIFIED HEALTH STATUS SNOMED Code(s): 274183973
[2019-05-12] MEDS ORDERED: cefTRIAXone(*) 1 GM in NS 0.9% 50 ML* 50 ML IVPB SCH (17:00)
[2019-05-13 00:52] LABS: Urine Appearance Clear; Urine Bilirubin Negative (Negative); Urine Blood Negative (Negative); Urine Color Yellow; Urine Glucose 1+(50 mg/dL) (Negative); Urine Ketones Negative (Negative); Urine Nitrite Negative (Negative); Urine Protein Negative (Negative); Urine Specific Gravity 1.026 (1.010-1.030); Urine Urobilinogen Negative (Negative)
[2019-05-13] MEDS: oxyCODONE/Acetamin 5/325 MG* TAB PO PRN (05:09)
[2019-05-13] MEDS: SPIRIVA Respimat* (tiotropium) 2.5 mcg/inh Inhaler INH SCH (07:36)
[2019-05-13] MEDS: Mometasone/Formoter 200/5 MDI INH SCH ×2 (07:36→20:10)
[2019-05-13] MEDS: busPIRone TAB* 10 MG PO SCH ×4 (08:19→22:02)
[2019-05-13] MEDS: Morphine TAB Extended Release (*) 30 MG TAB.ER PO SCH ×2 (08:19→22:03)
[2019-05-13] MEDS: guaiFENesin ER TAB 600 MG PO SCH ×3 (08:19→22:02)
[2019-05-13] MEDS: DULoxetine DR CAP* 60 MG CAP.DR PO SCH (08:19)
[2019-05-13] MEDS: Memantine TAB* 5 MG PO SCH (08:19)
[2019-05-13] MEDS: Azithromycin TAB* 250 MG PO SCH (08:20)
[2019-05-13] MEDS: Folic Acid TAB* 1 MG PO SCH (08:20)
[2019-05-13] MEDS: buPROPion SR TAB.SR* 150 MG PO SCH (08:20)
[2019-05-13] MEDS: Acetaminophen TAB* 325 MG PO SCH ×3 (09:58→22:02)
[2019-05-13] MEDS ORDERED: Cefepime ADVAN(*) 1 GM in NS 0.9% 50 ML* 50 ML IVPB SCH (12:56)
--- NOTE | 2019-05-13 13:01 | PN ---
Subjective Date of Service: 05/13/19 Interval History: Pt is feeling ok. She states he breathing is still worse than baseline but better than when she presented to the hospital. She continues to cough up some sputum. Objective Active Medications: Acetaminophen (Tylenol Tab*) 975 mg PO TID [facility] Last Admin: 05/13/19 09:58 Dose: 975 mg Al Hydrox/Mg Hydrox/Simethicone (Maalox Plus*) 30 ml PO Q6H PRN PRN Reason: INDIGESTION Albuterol (Ventolin Hfa Inhaler*) 2 puff INH Q4H PRN PRN Reason: SOB/WHEEZING Atorvastatin Calcium (Lipitor*) 10 mg PO BEDTIME [facility] Last Admin: 05/12/19 22:49 Dose: 10 mg Bupropion HCl (Wellbutrin Sr Tab*) 150 mg PO QAM [facility] Last Admin: 05/13/19 08:20 Dose: 150 mg Buspirone HCl (Buspar Tab*) 10 mg PO TID [facility] Last Admin: 05/13/19 08:19 Dose: 10 mg Donepezil HCl (Aricept Tab*) 10 mg PO BEDTIME [facility] Last Admin: 05/12/19 22:48 Dose: 10 mg Duloxetine HCl (Cymbalta Cap*) 60 mg PO QAM [facility] Last Admin: 05/13/19 08:19 Dose: 60 mg Enoxaparin Sodium (Lovenox(*)) 40 mg SUBCUT Q24H [facility] Last Admin: 05/12/19 22:49 Dose: 40 mg Famotidine (Pepcid Tab*) 20 mg PO BEDTIME [facility] Last Admin: 05/12/19 22:48 Dose: 20 mg Folic Acid (Folvite Tab*) 1 mg PO QAM [facility] Last Admin: 05/13/19 08:20 Dose: 1 mg Guaifenesin (Mucinex*) 1,200 mg PO BID [facility] Last Admin: 05/13/19 08:19 Dose: 1,200 mg Cefepime HCl 1 gm/ Sodium (Chloride) 50 mls @ 100 mls/hr IVPB BID [facility] Lidocaine (Lidoderm 5% Patch*) 1 patch TRANSDERM DAILY PRN PRN Reason: PAIN - MILD Last Admin: 05/12/19 08:42 Dose: 1 patch Memantine (Namenda Tab*) 5 mg PO QAM [facility] Last Admin: 05/13/19 08:19 Dose: 5 mg Mometasone Furoate/Formoterol Fumar (Dulera 200/5 Mdi*) 2 puff INH BID [facility]; Protocol Last Admin: 05/13/19 07:36 Dose: 2 puff Morphine Sulfate (Ms Contin(*)) 30 mg PO BID [facility] Last Admin: 05/13/19 08:19 Dose: 30 mg Ondansetron HCl (Zofran Inj*) 4 mg IV Q4H PRN PRN Reason: NAUSEA/VOMITING Last Admin: 05/12/19 00:32 Dose: 4 mg Oxycodone/Acetaminophen (Percocet 5/325 Tab*) 1 tab PO Q4H PRN PRN Reason: PAIN - MODERATE Last Admin: 05/13/19 05:09 Dose: 1 tab Pharmacy Profile Note (Lidocaine Patch Remove*) 1 note N/A 2100 [facility] Last Admin: 05/12/19 22:49 Dose: 1 note Prednisone (Deltasone 50 Mg Tab) 50 mg PO DAILY [facility] Last Admin: 05/13/19 08:19 Dose: 50 mg Quetiapine Fumarate (Seroquel Tab*) 50 mg PO BEDTIME [facility] Last Admin: 05/12/19 22:48 Dose: 50 mg Senna (Senokot 8.6 Mg Tab*) 1 tab PO BID PRN PRN Reason: CONSTIPATION Tiotropium [place] (Spiriva Respimat 2.5 Mcg) 2 puff INH DAILY [facility] Last Admin: 05/13/19 07:36 Dose: 2 puff Vital Signs - 8 hr 05/13/19 05/13/19 05/13/19 05:09 07:15 08:00 Temperature 97.3 F Pulse Rate 78 Respiratory 18 20 18 Rate Blood Pressure 147/62 (mmHg) O2 Sat by Pulse 99 Oximetry 05/13/19 05/13/19 05/13/19 08:19 08:21 11:12 Temperature Pulse Rate Respiratory 18 18 16 Rate Blood Pressure (mmHg) O2 Sat by Pulse Oximetry 05/13/19 11:15 Temperature 97.4 F Pulse Rate 85 Respiratory 20 Rate Blood Pressure 132/62 (mmHg) O2 Sat by Pulse 98 Oximetry Oxygen Devices in Use Now: Nasal Cannula Appearance: Elderly female sitting up in bed, NAD Eyes: No Scleral Icterus Ears/Nose/Mouth/Throat: Mucous Membranes Moist Respiratory: Symmetrical Chest Expansion and Respiratory Effort, Clear to Auscultation, - - coarse ronchi throughout Cardiovascular: NL Sounds; No Murmurs; No JVD, RRR, No Edema Abdominal: NL Sounds; No Tenderness; No Distention Extremities: No Clubbing, Cyanosis, - - RA associated joint deformities Skin: - - bruising noted on arms and legs Neurological: - - alert, oriented to situation Result Diagrams: 05/12/19 05:07 05/12/19 05:07 Microbiology and Other Data: Microbiology 05/12/19 00:05 Gram Stain - Final Sputum 05/12/19 00:45 Legionella Urinary Antigen - Final Urine Negative Legionella Antigen Streptococcus pneumoniae Ag Screen - Final Negative S. pneumo Antigen Assess/Plan/Problems-Billing Ms Gold is a 73 yo F who has a h/o COPD, RA, chronic pain, depression and dementia who presented to the ER with c/o sore throat cough and SOB and was admitted to treat a COPD exacerbation possibly secondary to pneumonia though she is also being ruled out for COVID-19. - Patient Problems (1) COPD exacerbation Current Visit: Yes Status: Acute Code(s): J44.1 - CHRONIC OBSTRUCTIVE PULMONARY DISEASE W (ACUTE) EXACERBATION SNOMED Code(s): 950179349 Comment: Pt presented with what appeared to be a COPD exacerbation. She is bringing up increased amounts of sputum today. This has grown pseudomonas. Will continue treatment for possible pneumonia with cefepime until sensitivities are back. As she is on baseline prednisone will continue higher dose prednisone for now and taper as rapidly we can. She is being ruled out for COVID-19. (2) Depression Current Visit: Yes Status: Chronic Code(s): F32.9 - MAJOR DEPRESSIVE DISORDER, SINGLE EPISODE, UNSPECIFIED SNOMED Code(s): 92405229 Comment: Continue bupropion, buspar, cymbalta, and seroquel at bedtime. Her mood is unchanged from when I last saw her in [facility] (January 2019). (3) Dementia Current Visit: Yes Status: Chronic Code(s): F03.90 - UNSPECIFIED DEMENTIA WITHOUT BEHAVIORAL DISTURBANCE SNOMED Code(s): 70413148 Comment: Continue namenda and aricept. (4) Rheumatoid arthritis Current Visit: Yes Status: Chronic Code(s): M06.9 - RHEUMATOID ARTHRITIS, UNSPECIFIED SNOMED Code(s): 39220035 Comment: Continue prednisone but taper to 40mg tomorrow. (5) DVT prophylaxis Current Visit: Yes Status: Acute Code(s): UMN0680 - SNOMED Code(s): 265492496 Comment: conor (6) Full code status Current Visit: Yes Status: Acute Code(s): Z78.9 - OTHER SPECIFIED HEALTH STATUS SNOMED Code(s): 060184109
[2019-05-13] MEDS: Cefepime 1 GM in Dextrose(*) 1 GM/50 ML q12h (Duplex) IV SCH (13:47)
[2019-05-13] MEDS: QUEtiapine TAB* 25 MG PO SCH ×2 (22:00→22:02)
[2019-05-13] MEDS: Famotidine TAB* 20 MG PO SCH ×2 (22:00→22:09)
[2019-05-13] MEDS: Lidocaine Patch REMOVE* 1 NOTE MISC SCH ×2 (22:00→22:23)
[2019-05-13] MEDS: Enoxaparin(*) 40 MG/0.4 ML SYR SUBCUT SCH ×2 (22:00→22:09)
[2019-05-13] MEDS: Atorvastatin* 10 MG TAB PO SCH ×2 (22:00→22:03)
[2019-05-13] MEDS: Donepezil TAB* 5 MG PO SCH (22:03)
[2019-05-14] MEDS: Cefepime 1 GM in Dextrose(*) 1 GM/50 ML q12h (Duplex) IV SCH ×2 (02:31→13:43)
[2019-05-14] MEDS: SPIRIVA Respimat* (tiotropium) 2.5 mcg/inh Inhaler INH SCH (07:13)
[2019-05-14] MEDS: Mometasone/Formoter 200/5 MDI INH SCH ×2 (07:16→19:41)
--- NOTE | 2019-05-14 08:08 | PN ---
Subjective Date of Service: 05/14/19 Interval History: Pt is feeling ok. She does state she had a rough night last night however. She could not elaborate why it was rough. She is coughing less. Objective Active Medications: Acetaminophen (Tylenol Tab*) 975 mg PO TID [facility] Last Admin: 05/13/19 22:02 Dose: 975 mg Al Hydrox/Mg Hydrox/Simethicone (Maalox Plus*) 30 ml PO Q6H PRN PRN Reason: INDIGESTION Albuterol (Ventolin Hfa Inhaler*) 2 puff INH Q4H PRN PRN Reason: SOB/WHEEZING Atorvastatin Calcium (Lipitor*) 10 mg PO BEDTIME [facility] Last Admin: 05/13/19 22:00 Dose: 10 mg Bupropion HCl (Wellbutrin Sr Tab*) 150 mg PO QAM [facility] Last Admin: 05/13/19 08:20 Dose: 150 mg Buspirone HCl (Buspar Tab*) 10 mg PO TID [facility] Last Admin: 05/13/19 22:00 Dose: 10 mg Donepezil HCl (Aricept Tab*) 10 mg PO BEDTIME [facility] Last Admin: 05/13/19 22:03 Dose: 10 mg Duloxetine HCl (Cymbalta Cap*) 60 mg PO QAM [facility] Last Admin: 05/13/19 08:19 Dose: 60 mg Enoxaparin Sodium (Lovenox(*)) 40 mg SUBCUT Q24H [facility] Last Admin: 05/13/19 22:00 Dose: 40 mg Famotidine (Pepcid Tab*) 20 mg PO BEDTIME [facility] Last Admin: 05/13/19 22:00 Dose: 20 mg Folic Acid (Folvite Tab*) 1 mg PO QAM [facility] Last Admin: 05/13/19 08:20 Dose: 1 mg Guaifenesin (Mucinex*) 1,200 mg PO BID [facility] Last Admin: 05/13/19 22:00 Dose: 1,200 mg Cefepime HCl (Maxipime 1 Gm In Dextrose Duplex (*)) 1 gm in 50 mls @ 100 mls/ hr IV Q12H [facility] Last Admin: 05/14/19 02:31 Dose: 100 mls/hr Lidocaine (Lidoderm 5% Patch*) 1 patch TRANSDERM DAILY PRN PRN Reason: PAIN - MILD Last Admin: 05/12/19 08:42 Dose: 1 patch Memantine (Namenda Tab*) 5 mg PO QAM [facility] Last Admin: 05/13/19 08:19 Dose: 5 mg Mometasone Furoate/Formoterol Fumar (Dulera 200/5 Mdi*) 2 puff INH BID [facility]; Protocol Last Admin: 05/14/19 07:16 Dose: 2 puff Morphine Sulfate (Ms Contin(*)) 30 mg PO BID [facility] Last Admin: 05/13/19 22:03 Dose: 30 mg Ondansetron HCl (Zofran Inj*) 4 mg IV Q4H PRN PRN Reason: NAUSEA/VOMITING Last Admin: 05/12/19 00:32 Dose: 4 mg Oxycodone/Acetaminophen (Percocet 5/325 Tab*) 1 tab PO Q4H PRN PRN Reason: PAIN - MODERATE Last Admin: 05/13/19 05:09 Dose: 1 tab Pharmacy Profile Note (Lidocaine Patch Remove*) 1 note N/A 2100 [facility] Last Admin: 05/13/19 22:00 Dose: 1 note Prednisone (Deltasone 20 Mg Tab) 40 mg PO DAILY [facility] Quetiapine Fumarate (Seroquel Tab*) 50 mg PO BEDTIME [facility] Last Admin: 05/13/19 22:00 Dose: 50 mg Senna (Senokot 8.6 Mg Tab*) 1 tab PO BID PRN PRN Reason: CONSTIPATION Tiotropium [place] (Spiriva Respimat 2.5 Mcg) 2 puff INH DAILY [facility] Last Admin: 05/14/19 07:13 Dose: 2 puff Vital Signs - 8 hr 05/14/19 05/14/19 05/14/19 00:40 02:37 07:16 Pulse Rate 72 70 Respiratory 18 16 14 Rate Blood Pressure 158/71 (mmHg) O2 Sat by Pulse 99 97 Oximetry Oxygen Devices in Use Now: Nasal Cannula Appearance: Elderly chronically ill female lying in bed, NAD Eyes: No Scleral Icterus Ears/Nose/Mouth/Throat: Mucous Membranes Moist Respiratory: Symmetrical Chest Expansion and Respiratory Effort, Clear to Auscultation - coarse breath sounds in left base Cardiovascular: NL Sounds; No Murmurs; No JVD, RRR, No Edema Abdominal: NL Sounds; No Tenderness; No Distention Extremities: No Clubbing, Cyanosis Skin: No Nodules or Sclerosis Neurological: Alert and Oriented x 3 Result Diagrams: 05/12/19 05:07 05/12/19 05:07 Microbiology and Other Data: Microbiology 05/12/19 00:05 Gram Stain - Final Sputum 05/12/19 00:45 Legionella Urinary Antigen - Final Urine Negative Legionella Antigen Streptococcus pneumoniae Ag Screen - Final Negative S. pneumo Antigen Assess/Plan/Problems-Billing Ms Gold is a 73 yo F who has a h/o COPD, RA, chronic pain, depression and dementia who presented to the ER with c/o sore throat cough and SOB and was admitted to treat a COPD exacerbation possibly secondary to pneumonia though she is also being ruled out for COVID-19. - Patient Problems (1) COPD exacerbation Current Visit: Yes Status: Acute Code(s): J44.1 - CHRONIC OBSTRUCTIVE PULMONARY DISEASE W (ACUTE) EXACERBATION SNOMED Code(s): 856714833 Comment: Pt presented with what appeared to be a COPD exacerbation. She is bringing up less sputum today. Sputum grew pseudomonas. Will continue treatment for possible pneumonia with cefepime until sensitivities are back. As she is on baseline prednisone will continue higher dose prednisone for now and taper as rapidly we can. She has been ruled out for COVID-19. (2) Depression Current Visit: Yes Status: Chronic Code(s): F32.9 - MAJOR DEPRESSIVE DISORDER, SINGLE EPISODE, UNSPECIFIED SNOMED Code(s): 73773882 Comment: Continue bupropion, buspar, cymbalta, and seroquel at bedtime. Her mood is unchanged from when I last saw her in [facility] (January 2019). (3) Dementia Current Visit: Yes Status: Chronic Code(s): F03.90 - UNSPECIFIED DEMENTIA WITHOUT BEHAVIORAL DISTURBANCE SNOMED Code(s): 50135617 Comment: Continue namenda and aricept. (4) Rheumatoid arthritis Current Visit: Yes Status: Chronic Code(s): M06.9 - RHEUMATOID ARTHRITIS, UNSPECIFIED SNOMED Code(s): 23596443 Comment: Continue prednisone, ultimately will taper back to 15mg/day. (5) DVT prophylaxis Current Visit: Yes Status: Acute Code(s): JWR2344 - SNOMED Code(s): 595795350 Comment: lovenox (6) Full code status Current Visit: Yes Status: Acute Code(s): Z78.9 - OTHER SPECIFIED HEALTH STATUS SNOMED Code(s): 385737726
[2019-05-14] MEDS: DULoxetine DR CAP* 60 MG CAP.DR PO SCH (10:03)
[2019-05-14] MEDS: Folic Acid TAB* 1 MG PO SCH (10:03)
[2019-05-14] MEDS: buPROPion SR TAB.SR* 150 MG PO SCH (10:03)
[2019-05-14] MEDS: Acetaminophen TAB* 325 MG PO SCH ×4 (10:03→22:54)
[2019-05-14] MEDS: guaiFENesin ER TAB 600 MG PO SCH ×2 (10:04→21:48)
[2019-05-14] MEDS: busPIRone TAB* 10 MG PO SCH ×3 (10:04→21:50)
[2019-05-14] MEDS: Memantine TAB* 5 MG PO SCH (10:04)
[2019-05-14] MEDS: Morphine TAB Extended Release (*) 30 MG TAB.ER PO SCH ×2 (10:04→21:50)
[2019-05-14] MEDS: oxyCODONE/Acetamin 5/325 MG* TAB PO PRN (11:26)
[2019-05-14] MEDS: Atorvastatin* 10 MG TAB PO SCH (21:50)
[2019-05-14] MEDS: QUEtiapine TAB* 25 MG PO SCH (21:50)
[2019-05-14] MEDS: Donepezil TAB* 5 MG PO SCH (21:50)
[2019-05-14] MEDS: Famotidine TAB* 20 MG PO SCH (21:50)
[2019-05-14] MEDS: Enoxaparin(*) 40 MG/0.4 ML SYR SUBCUT SCH (21:51)
[2019-05-14] MEDS: Lidocaine Patch REMOVE* 1 NOTE MISC SCH (21:52)
[2019-05-15] MEDS: Cefepime 1 GM in Dextrose(*) 1 GM/50 ML q12h (Duplex) IV SCH ×2 (02:27→14:21)
[2019-05-15] MEDS: SPIRIVA Respimat* (tiotropium) 2.5 mcg/inh Inhaler INH SCH (08:29)
[2019-05-15] MEDS: Mometasone/Formoter 200/5 MDI INH SCH ×2 (08:29→19:42)
[2019-05-15 10:19] LABS: Hematocrit 36 % (35-47); Hemoglobin 12.1 g/dL (12.0-16.0); Mean Corpuscular HGB Conc 34 g/dL (31-36); Mean Corpuscular Hemoglobin 31 pg (27-31); Mean Corpuscular Volume 92 fL (80-97); Mean Platelet Volume 8.1 fL (7.4-10.4); Platelet Count 301 10^3/uL (150-450); Red Blood Count 3.92 10^6 /uL (3.70-4.87); Red Cell Distribution Width 16 % (10-15)
[2019-05-15 10:33] LABS: BUN/Creatinine Ratio 27.8 (8-20); Calcium 9.3 mg/dL (8.6-10.3); EGFR African American 86.1 (>60); EGFR Non-African American 71.1 (>60); Potassium 3.5 mmol/L (3.5-5.0)
[2019-05-15] MEDS: Memantine TAB* 5 MG PO SCH (11:04)
[2019-05-15] MEDS: DULoxetine DR CAP* 60 MG CAP.DR PO SCH (11:05)
[2019-05-15] MEDS: Acetaminophen TAB* 325 MG PO SCH ×3 (11:05→21:43)
[2019-05-15] MEDS: buPROPion SR TAB.SR* 150 MG PO SCH (11:05)
[2019-05-15] MEDS: busPIRone TAB* 10 MG PO SCH ×3 (11:06→21:45)
[2019-05-15] MEDS: Morphine TAB Extended Release (*) 30 MG TAB.ER PO SCH ×2 (11:06→21:44)
[2019-05-15] MEDS: guaiFENesin ER TAB 600 MG PO SCH ×2 (11:07→21:47)
[2019-05-15] MEDS: Folic Acid TAB* 1 MG PO SCH (11:07)
--- NOTE | 2019-05-15 11:43 | DS ---
CC: Heather Adkins NP, [facility] * DATE OF ADMISSION: 05/11/2019. DATE OF DISCHARGE: 05/15/2019. PRIMARY CARE PHYSICIAN: Heather Adkins NP. PRINCIPAL DIAGNOSIS: Pseudomonas pneumonia with COPD exacerbation. SECONDARY DIAGNOSES: 1. Rheumatoid arthritis. 2. Mild dementia. 3. Chronic pain. 4. Depression. 5. GERD. 6. Hyperlipidemia. DISCHARGE MEDICATIONS: 1. DuoNeb one neb inhaled q.4 hours prn shortness of breath. 2. BuSpar 10 mg p.o. t.i.d. 3. Tylenol 1,000 mg p.o. t.i.d. 4. Symbicort 160-4.5 two puffs inhaled twice daily. 5. Guaifenesin 400 mg p.o. q.12 hours. 6. Morphine Sulfate ER 30 mg p.o. b.i.d. 7. [place] cream applied topically b.i.d. 8. Bupropion 150 mg p.o. daily. 9. Incruse Ellipta 62.5 mcg inhaled daily. 10. Seroquel 25 mg p.o. at bedtime. 11. Senna two tabs p.o. at bedtime. 12. Refresh Tears two drops both eyes at bedtime. 13. Prolia 60 mg subcutaneous q.6 months. 14. Prednisone 15 mg p.o. daily. 15. Famotidine 20 mg p.o. at bedtime. 16. Calcium plus vitamin D 500 mg p.o. every other day. 17. Namenda 5 mg p.o. daily. 18. Lipitor 10 mg p.o. at bedtime. 19. Folic acid 1 mg p.o. daily. 20. Duloxetine DR 60 mg p.o. daily. 21. Donepezil 10 mg p.o. at bedtime. 22. Colace 200 mg p.o. daily. 23. Levofloxacin 500 mg p.o. daily times 5 days. HOSPITAL COURSE: Ms. Gold is a 73-year-old female who presented to the emergency room on 05/11/2019 with a sore throat, cough, and shortness of breath. This began approximately five days prior to admission and had been getting progressively worse. She had a very productive cough in the ER. She had altered mental status. Given the relatively sudden onset of these respiratory systems, COVID-19 testing was sent. This ultimately came back negative. Her sputum culture grew pseudomonas that was relatively pansensitive. It is felt that she likely had a pseudomonas pneumonia leading to COPD exacerbation. The patient did receive Cefepime once the pseudomonas culture returned. Prior to that, she was on Ceftriaxone and Azithromycin. She will need five more days of antibiotic therapy with Levaquin 500 mg p.o. daily. The patient's mental status is back to baseline. Her respiratory status is much improved. She does continue to have a harsh cough with some sputum production, however generally is improved. The patient will resume her usual dose of Prednisone starting tomorrow. The patient's usual home medications have been unchanged. On the day of discharge, the patient is awake. She is alert. She is sitting up in bed, eating breakfast, in no acute distress. Cardiac exam reveals normal S1, S2 with a regular rate and rhythm. Lungs are relatively clear, though she does have harsh upper airway sounds. Abdomen is soft, nontender, nondistended. She has obvious joint deformities from her advanced RA. FOLLOW-UP CONCERNS: The patient is being discharged back to [facility] today , 05/15/2019. ACTIVITY LEVEL: As tolerated. DIET: Regular. CONDITION ON DISCHARGE: Stable. The patient needs assistance with eating. She should be fed and not just set up to eat. TIME SEEN: Thirty-five minutes were spent discharging this patient. [id number]/[facility] #: [id number] MTDD
[2019-05-15] MEDS: Atorvastatin* 10 MG TAB PO SCH (21:45)
[2019-05-15] MEDS: Donepezil TAB* 5 MG PO SCH (21:46)
[2019-05-15] MEDS: QUEtiapine TAB* 25 MG PO SCH (21:46)
[2019-05-15] MEDS: Famotidine TAB* 20 MG PO SCH (21:47)
[2019-05-15] MEDS: Enoxaparin(*) 40 MG/0.4 ML SYR SUBCUT SCH (21:48)
[2019-05-15] MEDS: Lidocaine Patch REMOVE* 1 NOTE MISC SCH (21:48)
[2019-05-16] MEDS: Cefepime 1 GM in Dextrose(*) 1 GM/50 ML q12h (Duplex) IV SCH (01:39)
--- NOTE | 2019-05-16 07:18 | PN ---
Subjective Date of Service: 05/16/19 Interval History: HD5 on 05/15 73F PMH COPD, RA on chronic prednisone, chronic pain on snf opiates, depression and dementia who presented to the ER with with COPD exacerbation 2/2 to PNA, ruled out for COVID-19 Overnight no acute events, VSS Last labs 05/14 and stable This morning: Seen and doing well, still some cough and E wheeze with fatigue, but denies any sarahi CP, endorses hunger for breakfast and no other acute complaints. Pleasant and well, oriented to self, place, but not really time or event. Objective Active Medications: Acetaminophen (Tylenol Tab*) 975 mg PO TID [facility] Last Admin: 05/15/19 21:43 Dose: 975 mg Al Hydrox/Mg Hydrox/Simethicone (Maalox Plus*) 30 ml PO Q6H PRN PRN Reason: INDIGESTION Albuterol (Ventolin Hfa Inhaler*) 2 puff INH Q4H PRN PRN Reason: SOB/WHEEZING Last Admin: 05/14/19 19:47 Dose: 2 puff Atorvastatin Calcium (Lipitor*) 10 mg PO BEDTIME [facility] Last Admin: 05/15/19 21:45 Dose: 10 mg Bupropion HCl (Wellbutrin Sr Tab*) 150 mg PO QAM [facility] Last Admin: 05/15/19 11:05 Dose: 150 mg Buspirone HCl (Buspar Tab*) 10 mg PO TID [facility] Last Admin: 05/15/19 21:45 Dose: 10 mg Donepezil HCl (Aricept Tab*) 10 mg PO BEDTIME [facility] Last Admin: 05/15/19 21:46 Dose: 10 mg Duloxetine HCl (Cymbalta Cap*) 60 mg PO QAM [facility] Last Admin: 05/15/19 11:05 Dose: 60 mg Enoxaparin Sodium (Lovenox(*)) 40 mg SUBCUT Q24H [facility] Last Admin: 05/15/19 21:48 Dose: 40 mg Famotidine (Pepcid Tab*) 20 mg PO BEDTIME [facility] Last Admin: 05/15/19 21:47 Dose: 20 mg Folic Acid ([facility]ite [facility]*) [facility] Admin: 05/15/19 11:07 Dose: 1 mg Guaifenesin (Mucinex*) 1,200 mg PO BID [facility] Last Admin: 05/15/19 21:47 Dose: 1,200 mg Cefepime HCl (Maxipime 1 Gm In Dextrose Duplex (*)) 1 gm in 50 mls @ 100 mls/ hr IV Q12H [facility] Last Admin: 05/16/19 01:39 Dose: 100 mls/hr Lidocaine (Lidoderm 5% Patch*) 1 patch TRANSDERM DAILY PRN PRN Reason: PAIN - MILD Last Admin: 05/12/19 08:42 Dose: 1 patch Memantine (Namenda Tab*) 5 mg PO QAM [facility] Last Admin: 05/15/19 11:04 Dose: 5 mg Mometasone Furoate/Formoterol Fumar (Dulera 200/5 Mdi*) 2 puff INH BID [facility]; Protocol Last Admin: 05/15/19 19:42 Dose: 2 puff Morphine Sulfate (Ms Contin(*)) 30 mg PO BID [facility] Last Admin: 05/15/19 21:44 Dose: 30 mg Ondansetron HCl (Zofran Inj*) 4 mg IV Q4H PRN PRN Reason: NAUSEA/VOMITING Last Admin: 05/12/19 00:32 Dose: 4 mg Oxycodone/Acetaminophen (Percocet 5/325 Tab*) 1 tab PO Q4H PRN PRN Reason: PAIN - MODERATE Last Admin: 05/14/19 11:26 Dose: 1 tab Pharmacy Profile Note (Lidocaine Patch Remove*) 1 note N/A 2100 [facility] Last Admin: 05/15/19 21:48 Dose: Not Given Prednisone (Deltasone 20 Mg Tab) 40 mg PO DAILY [facility] Last Admin: 05/15/19 11:03 Dose: 40 mg Quetiapine Fumarate (Seroquel Tab*) 50 mg PO BEDTIME [facility] Last Admin: 05/15/19 21:46 Dose: 50 mg Senna (Senokot 8.6 Mg Tab*) 1 tab PO BID PRN PRN Reason: CONSTIPATION Tiotropium [place] (Spiriva Respimat 2.5 Mcg) 2 puff INH DAILY [facility] Last Admin: 05/15/19 08:29 Dose: 2 puff Vital Signs - 8 hr 05/15/19 05/16/19 05/16/19 23:19 00:04 03:06 Temperature 97.3 F 97.3 F Pulse Rate 70 72 Respiratory 18 16 16 Rate Blood Pressure 139/54 132/54 (mmHg) O2 Sat by Pulse 93 95 Oximetry Oxygen Devices in Use Now: None Appearance: Frail elderly woman in NAD Eyes: No Scleral Icterus, PERRLA Ears/Nose/Mouth/Throat: NL Teeth, Lips, Gums, Mucous Membranes Moist Neck: NL Appearance and Movements; NL JVP Respiratory: - - Rhonchi diffuse in all field and E wheeze, no crackles Cardiovascular: NL Sounds; No Murmurs; No JVD, RRR Abdominal: NL Sounds; No Tenderness; No Distention, No Hepatosplenomegaly Lymphatic: No Cervical Adenopathy Extremities: No Edema Skin: No Rash or Ulcers Neurological: - - Oriented to self and place only/ Result Diagrams: 05/15/19 09:34 05/15/19 09:34 Microbiology and Other Data: Microbiology 05/12/19 00:05 Gram Stain - Final Sputum 05/12/19 00:45 Legionella Urinary Antigen - Final Urine Negative Legionella Antigen Streptococcus pneumoniae Ag Screen - Final Negative S. pneumo Antigen Diagnostic Imagin/19 CXR Indication: Shortness of breath. Single frontal view of the chest performed at 1658 hours was reviewed. Comparison is made with previous exam dated December 29, 2018. No mediastinal shift is noted. Heart is of normal size and configuration. Lung griffith appear clear. IMPRESSION: NO ACTIVE CARDIOPULMONARY DISEASE IS NOTED. 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, depression and dementia who presented to the ER with with COPD exacerbation 2/2 to pseudomonas PNA, ruled out for COVID-19 - Patient Problems (1) COPD exacerbation Current Visit: Yes Status: Acute Code(s): J44.1 - CHRONIC OBSTRUCTIVE PULMONARY DISEASE W (ACUTE) EXACERBATION SNOMED Code(s): 184022000 Comment: -Secondary to URI and PNA, COVID NEG, off all O2 now -Continue inahler tx optimized on triple therapy, steroids at 40mg Day 5 on 05/15 , taper to 30mg 05/16, home dose is 15mg daily -Instructions in DC summary -Cefipime Day 5/__ on 05/15, could narrow to oral FQ (2) Dementia Current Visit: Yes Status: Chronic Code(s): F03.90 - UNSPECIFIED DEMENTIA WITHOUT BEHAVIORAL DISTURBANCE SNOMED Code(s): 24823597 Comment: -Continue namenda and aricept. (3) Depression Current Visit: Yes Status: Chronic Code(s): F32.9 - MAJOR DEPRESSIVE DISORDER, SINGLE EPISODE, UNSPECIFIED SNOMED Code(s): 90486633 Comment: -Continue bupropion, buspar, cymbalta, and seroquel at bedtime. (4) Rheumatoid arthritis Current Visit: Yes Status: Chronic Code(s): M06.9 - RHEUMATOID ARTHRITIS, UNSPECIFIED SNOMED Code(s): 86183353 Comment: -Continue prednisone and snf opiates at her home dose -ultimately will taper back to 15mg/day. (5) DVT prophylaxis Current Visit: Yes Status: Acute Code(s): ATY2226 - SNOMED Code(s): 889513544 Comment: -Lovenox (6) Full code status Current Visit: Yes Status: Acute Code(s): Z78.9 - OTHER SPECIFIED HEALTH STATUS SNOMED Code(s): 143142780 Status and Disposition: Stable to be dc to [facility]
[2019-05-16 08:20] VITALS: BP 126/66
[2019-05-16] MEDS: SPIRIVA Respimat* (tiotropium) 2.5 mcg/inh Inhaler INH SCH (08:23)
[2019-05-16] MEDS: Mometasone/Formoter 200/5 MDI INH SCH ×2 (08:24→20:19)
[2019-05-16] MEDS: buPROPion SR TAB.SR* 150 MG PO SCH (08:36)
[2019-05-16] MEDS: DULoxetine DR CAP* 60 MG CAP.DR PO SCH (08:36)
[2019-05-16] MEDS: guaiFENesin ER TAB 600 MG PO SCH (08:36)
[2019-05-16] MEDS: Morphine TAB Extended Release (*) 30 MG TAB.ER PO SCH (08:37)
[2019-05-16] MEDS: Memantine TAB* 5 MG PO SCH (08:37)
[2019-05-16] MEDS: Acetaminophen TAB* 325 MG PO SCH (08:37)
[2019-05-16] MEDS: busPIRone TAB* 10 MG PO SCH (08:37)
[2019-05-16] MEDS: Folic Acid TAB* 1 MG PO SCH (08:37)
--- NOTE | 2019-05-16 11:36 | DS ---
ADDENDUM TO DISCHARGE SUMMARY DICTATED BY DR. ARAVIND MALDONADO DATE OF ADMISSION: 05/12/2019. ANTICIPATED DATE OF DISCHARGE: 05/15/2019, though this has been moved to 05/16/2019 secondary to the family's choice of [facility]ci. DISPOSITION AT THE TIME OF DISCHARGE: Stable to be discharged to long term facility in [facility] where her daughter is employed and keep a closer eye. Primary diagnoses, secondary diagnoses, and discharge medications remain the same. Hospital course re jack the same. ACTIVITY LEVEL ADDITION: Patient may ambulate as tolerated, though will need 2 liters nasal cannula prn for shortness of breath or oxygen saturation less than 90 percent as she continues to heal from t his community-acquired pneumonia. Otherwise, appreciate the discharge summary from Dr. Aravind Maldonado dictated on 05/15/2019. [id number]/[facility] #: [id number]
--- NOTE | 2019-05-26 22:12 | DS ---
DISCHARGE SUMMARY: ADDENDUM: DATE OF DISCHARGE: Anticipated date of discharge should be 05/16/19, not 05/15/19. Ultimate date of discharge 05/16/19. DISPOSITION AT THE TIME OF DISCHARGE: Stable, to be discharged to prison facility. [id number]/[facility] #: [id number]
== END 2019-05-16 11:30 | DRG 178 ==
LOC: ED 14:54 → MED 19:15 → OBSVTOIN 05-12 13:57
PROVIDERS: ADMIT Physician Assistant; ATTEND Internal Medicine
DX: J15.1 Pneumonia due to Pseudomonas (principal); J44.1 Chronic obstructive pulmonary disease with (acute) exacerbation; J44.0 Chronic obstructive pulmonary disease with (acute) lower respiratory infection; K21.9 Gastro-esophageal reflux disease without esophagitis; K58.9 Irritable bowel syndrome, unspecified; M06.9 Rheumatoid arthritis, unspecified; M19.90 Unspecified osteoarthritis, unspecified site; M81.0 Age-related osteoporosis without current pathological fracture; H91.90 Unspecified hearing loss, unspecified ear; F03.90 Unspecified dementia, unspecified severity, without behavioral disturbance, psychotic disturbance, mood disturbance, and anxiety; F41.9 Anxiety disorder, unspecified; F32.9 Major depressive disorder, single episode, unspecified; H35.30 Unspecified macular degeneration; G89.29 Other chronic pain; R74.0 Nonspecific elevation of levels of transaminase and lactic acid dehydrogenase [LDH]; E78.5 Hyperlipidemia, unspecified; N18.3 Chronic kidney disease, stage 3 (moderate); Z87.891 Personal history of nicotine dependence; Z88.1 Allergy status to other antibiotic agents; Z88.2 Allergy status to sulfonamides; Z03.818 Encounter for observation for suspected exposure to other biological agents ruled out; Z79.899 Other long term (current) drug therapy; Z79.51 Long term (current) use of inhaled steroids
CPT/HCPCS: 36415; 70450; 71045; 80048; 80053; 81003; 83605; 83880; 84484; 85025; 85027; 86140; 87040; 87070; 87077; 87186; 87205; 87899; 93005; 94640; 96365; 96375; 99285; A9270-GY; J0456; J0692; J0696; J1650; J2405; J3535; J7512; U0002